=== PATIENT | female | born 1985 | race Hispanic/Latino ===

== ENCOUNTER 2017-02-21 13:04 | Inpatient (IN) | payer MEDICAID ==
[2017-02-21 14:07] LABS: BASO # 0.1 K/uL (0.0-0.2); BASO % 0.6 % (0.0-2.0); EOS % 0.2 % (0.0-4.0); HEMATOCRIT 42.4 % (34.0-47.0); LYMPH # 1.7 K/uL (1.0-4.3); LYMPH % 17.7 % (20.0-40.0); MEAN CORPUSCULAR HEMOGLOBIN 30.9 pg (27.0-31.0); MEAN CORPUSCULAR HGB CONC 33.9 g/dL (33.0-37.0); MEAN PLATELET VOLUME 10.4 fL (7.2-11.7); MONO # 0.4 K/uL (0.0-0.8); MONO % 4.5 % (0.0-10.0); RED CELL DISTRIBUTION WIDTH 13.2 % (11.5-14.5); WHITE BLOOD COUNT 9.7 K/uL (4.8-10.8)
[2017-02-21 14:15] LABS: RBC URINE 66 /hpf (0-3); URINE BILIRUBIN NEGATIVE (NEGATIVE); URINE BLOOD 1+ (NEGATIVE); URINE COLOR Amber (YELLOW); URINE GLUCOSE (UA) NORMAL (Normal); URINE KETONE NEGATIVE (NEGATIVE); URINE LEUKOCYTE ESTERASE 3+ Leu/uL (Negative); URINE PROTEIN 1+ mg/dL (NEGATIVE); URINE UROBILINOGEN NORMAL mg/dL (0.2-1.0); WBC URINE 139 /hpf (0-5)
[2017-02-21 14:18] LABS: CHLORIDE 107 mmol/L (98-107)
[2017-02-21 14:19] LABS: SODIUM 141 mmol/L (132-148)
[2017-02-21 14:20] LABS: POTASSIUM 3.5 mmol/L (3.6-5.2)
[2017-02-21 14:22] LABS: ALB/GLOB RATIO 1.1 (1.0-2.1); ALKALINE PHOSPHATASE 83 U/L (38-126); AST/SGOT 49 U/L (14-36); BILIRUBIN,TOTAL 0.9 mg/dL (0.2-1.3); BLOOD UREA NITROGEN 13 mg/dL (7-17); CARBON DIOXIDE 23 mmol/L (22-30); GFR AFRICAN-AMERICAN > 60; GLUCOSE,RANDOM 107 mg/dL (65-105); TOTAL PROTEIN 8.7 g/dL (6.3-8.3)
[2017-02-21 14:23] LABS: ALCOHOL SERUM < 10 mg/dl (0-10); ALT/SGPT 28 U/L (9-52); CALCIUM 9.7 mg/dl (8.6-10.4)
--- NOTE | 2017-02-21 14:42 | C.PDOC ---
History Of Present Illness 32 year old female presents to the ED stating that she would like detox for heroin abuse. Patient reports last use 2 days ago and that she is now having symptoms of withdrawal. She complains of abdominal cramping and diarrhea. Patient denies incontinence. Chief Complaint (Nursing): Substance Abuse History Per: Patient History/Exam Limitations: no limitations Onset/Duration Of Symptoms: Hrs Current Symptoms Are (Timing): Still Present Past Medical History Reviewed: Historical Data, Nursing Documentation, Vital Signs Vital Signs: Last Vital Signs Temp 98.2 F 02/21/17 16:35 Pulse 69 02/21/17 16:35 Resp 16 02/21/17 16:35 BP 122/70 02/21/17 16:35 Pulse Ox 100 02/21/17 16:35 - Medical History PMH: Anxiety, Depression, Seizures Denies: Diabetes, Hepatitis, HIV, HTN, Sexually Transmitted Disease - [facility] Procedures DETOXIFICATION SERVICES FOR SUBSTANCE ABUSE TREATMENT (04/23/15) DRUG REHABILITATION AND DETOXIFICATION (01/10/15) Family History: States: Unknown Family Hx - Social History Hx Alcohol Use: No Hx Substance Use: Yes (heroin use) - Immunization History Hx Tetanus Toxoid Vaccination: No Hx Influenza Vaccination: No Hx Pneumococcal Vaccination: No Review Of Systems Gastrointestinal: Positive for: Abdominal Pain, Diarrhea Genitourinary: Negative for: Incontinence Psych: Positive for: Withdrawal Physical Exam - Physical Exam Appears: Non-toxic, No Acute Distress Skin: Warm, Dry Head: Atraumatic, Normacephalic Eye(s): bilateral: Normal Inspection, PERRL, EOMI Oral Mucosa: Moist Cardiovascular: Rhythm Regular (Regular Rate ) Respiratory: Normal Breath Sounds Gastrointestinal/Abdominal: Soft, No Tenderness, Other (Not actively vomiting ) Neurological/Psych: Oriented x3, Normal Speech, Other (mildly anxious ) ED Course And Treatment - Laboratory Results Result Diagrams: 02/21/17 13:53 02/21/17 13:53 O2 Sat by Pulse Oximetry: 100 Progress Note: Patient has UTI and was treated with Macrobid 100 mg po that she needs to continue every 12 h for 5 days. Patient has symptomatic treatment for her withdrawal symptoms including abdominal cramps and diarrhea. She was give Clonidine 0.1 mg po, Bentyl 20 mg IM and Imodium po. Patient is medically stable to be admitted for Detox. She was accepted by . Medical Decision Making Medical Decision Making: Patient has been worked up for detox. Spoke with the detox unit and they have available beds. Disposition - Disposition Disposition: HOSPITALIZED Disposition Time: 15:50 Condition: STABLE - Clinical Impression Clinical Impression: Drug dependence, Withdrawal symptoms, drug or narcotic, UTI (urinary tract infection), Diarrhea - Scribe Statement The provider has reviewed the documentation as recorded by the Amando Saldana Decision To Admit - Pt Status Changed To: Hospital Disposition Of: Inpatient - Admit Certification Admit to Inpatient:: After my assessment, the patient will require hospitalization for at least two midnights. This is because of the severity of symptoms shown, intensity of services needed, and/or the medical risk in this patient being treated as an outpatient. - InPatient: Physician Admission Certification: I certify that this patient requires 2 or more midnights of care for the following reason:: Pt will need more than 2 days of hospitalization to complete detox. - . Bed Request Type: Detox Patient Diagnosis: Drug dependence, Withdrawal symptoms, drug or narcotic, UTI (urinary tract infection), Diarrhea
--- NOTE | 2017-02-21 16:43 | PCM.BM ---
<EmilyAurelioAnitra - Last Filed: 02/21/17 16:42> Treatment Plan Problems - Problems identified on initial assessmt Potential for opiate withdrawal Date Initiated: 02/21/17 Time Initiated: 16:42 Assessment reference: NA Status: Active Priority: 1 Treatment assets and liabiliti Patient Assests: cooperative, ADL independent, negotiates basic needs, cognitively intact Patient Liabilities: substance abuse, medical problems <Jordi Villar - Last Filed: 02/23/17 11:56> - Diagnosis (1) Opiate dependence Status: Acute Interventions: 02/23/17 11:56 * Assess 7x/week regarding severity of withdrawal * Educate regarding risks, benefits, side effects and alternatives of medications * Use Motivational Interviewing for abstinence * Use CBT for relapse prevention * Medication management for withdrawal symptoms * Encourage medication assisted treatment * <Aura Patel - Last Filed: 02/24/17 16:04> Family Contact Family involvement: Patient does not wish Family/SO involvement Family contact: Patient declines to allow family contact at present - Goals for Treatment Patient goals for treatment: Complete detox and discuss aftercare options with d /c buyer planner. Discharge/Continuing Care - Education Needs Education Needs: Patient Medication, Patient Diagnosis/Disease Process, Patient Coping Skills, Patient Anger Management skills, Patient Placement options, Patient Community resources - Discharge Discharge Criteria: No longer exhibiting s/s of withdrawal, Reduction of target symptoms Discharge to:: Substance Abuse Rehab - Treatment Team Participation Discussed with Family/SO: No Was Patient/Family/SO present at Treatment Team Meeting: Yes
[2017-02-21] MEDS ORDERED: Buprenorphine Hydrochloride 2 mg SL ONE ×2 (16:56→18:00)
[2017-02-22] MEDS: Buprenorphine Hydrochloride 2 mg SL SCH (10:17)
--- NOTE | 2017-02-22 13:57 | PCM.PSYCH ---
Initial Psychiatric Evaluation - Initial Psychiatric Evaluation Type of Admission: Voluntary Legal Status: Capacity Chief Complaint (in patient's own words): "Using heroin too much" History of Present Illness and Precipitating Events: The pt is seen, chart reviewed and case discussed. This is a 32 year old female with a past medical history of Hepatitis C and Seizures, is admitted for heroin withdrawal and detox. PT admits to injecting 20-25 bags a day for the past 15 years. Her longest period of sobriety with heroin was for 3 years. PT admits to ingesting 4 pills of Xanax a day for the past 5 years. The last time Pt took Xanax was a week ago. PT admits smoking and injecting "6 bottles of cocaine a day" for the past 15 years. Pt denies feeling depressed or having suicidal or homicidal ideation. Pt feels very anxious and is having trouble sleeping. Pt is single and living with boyfriend's mother. 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 Pt previously attended detox program at [facility] and methadone program in the past. Denies any legal issues currently or in the past. PMH: Hep C, Seizures Allergies: Shellfish, NKDA Family Hx: Father abused alcohol and cocaine. Denies any other family medical or psychiatric illnesses Past Psychiatric Hx: Pt was being treated for anxiety and depression with Zoloft and Buspar Current Medications: Active Medications Generic Name Dose Route Start Last Admin Trade Name Freq PRN Reason Stop Dose Admin Buprenorphine HCl 8 mg 02/22/17 10:00 02/22/17 10:17 Subutex SL 02/26/17 09:59 8 mg DAILY GAMAL Administration Taper Clonidine HCl 0.1 mg 02/21/17 18:47 Catapres PO Q8 PRN opiate withdrawal Dicyclomine HCl 10 mg 02/21/17 17:00 02/22/17 13:17 Bentyl PO 10 mg Q6 PRN Administration stomach cramps Hydroxyzine HCl 25 mg 02/21/17 16:56 02/22/17 13:17 Atarax PO 25 mg Q6 PRN Administration Anxiety Nicotine 1 patch 02/22/17 10:45 02/22/17 11:01 Nicoderm Cq TD 1 patch DAILY GAMAL Administration Nitrofurantoin Macrocrystals 100 mg 02/22/17 10:45 02/22/17 11:02 Macrobid PO 100 mg Q12H GAMAL Administration Trazodone HCl 50 mg 02/21/17 18:47 02/21/17 21:18 Desyrel PO 50 mg HS PRN Administration Insomnia Past Psychiatric History - Past Psychiatric History Previous Treatment History: Intensive Outpatient Pertinent Medical Hx (Current Medical&Sleep Prob, Allergies): Allergies Allergy/AdvReac Type Severity Reaction Status Date / Time shellfish derived Allergy Verified 02/21/17 13:14 SEAFOOD Allergy Uncoded 02/21/17 13:14 No Known Home Med 02/21/17 Review of Systems - Neurological Neurological: UNREMARKABLE - Psychiatric Psychiatric: Abnormal Sleep Pattern, Anxiety. absent: Anhedonia, Auditory Hallucinations, Behavioral Changes, Confusion, Depression, Difficulty Concentrating, Hallucinations, Homicidal Ideation, Hopelessness, Paranoia, Suicidal Ideation, Visual Hallucinations Mental Status Examination - Personal Presentation Personal Presentation: Looks stated age - Affect Affect: Constricted - Motor Activity Motor Activity: Calm - Reliability in Providing Information Reliability in Providing Information: Good - Speech Speech: Organized - Mood Mood: Anxious - Formal Thought Process Formal Thought Process: No Impairment - Obsessions/Compulsions Obsessions: No Compulsions: No - Cognitive Functions Orientation: Person, Place, Situation, Time Sensorium: Alert Attention/Concentration: Attentive Abstract Thinking: [place] Judgement: Intact, as evidence by: Insight regarding need for hospitalization Memory: Recent intact, as evidence by: Ability to recall events of the day, Remote intact, as evidenced by: Abilit to recall sig. 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 RONNELL Depressive d/o - unspecified - Recommended/Plan of Treatment Treatment Recommendations and Plan of Treatment: Subutex detox, started yesterday Switching from Trazadone to Seroquel for sleep Gabapentin for augmentation Lexapro for depression/anxiety Attend groups and activities Supportive therapy and psychoeducation [place] for abstinence CBT for relapse prevention Encourage MAT Refer to rehab or IOP Attend self-help groups as well Speak with protective services social worker about rehab programs or IOPs She may come to 32 min Projected ELOS: 5 days Prognosis: Good - Smoking Cessation Smoking Cessation Initiated: Yes
[2017-02-22] MEDS: Bacitracin 500 Units/gm Oint Foilpak UD TOP SCH (20:16)
[2017-02-23] MEDS: Bacitracin 500 Units/gm Oint Foilpak UD TOP SCH ×2 (09:56→17:19)
[2017-02-23] MEDS: Buprenorphine Hydrochloride 2 mg SL SCH (09:56)
--- NOTE | 2017-02-23 13:49 | PCM.PYCHPN ---
Psychiatric Progress Note - Psychiatric Progress Note Patient seen today, length of contact: 15 min Patient Chief Complaint: "I feel okay" Problems Identified/Issues Discussed: The pt is seen, chart reviewed, case discussed with staff. Pt switched from trazodone to seroquel and notices improvement in sleep Slept well overnight, no suicidal ideation or auditory/visual hallucinations Symptoms are improving but needs more time to stabilize. informed by pt and social workers that Pt will be attending [facility] after discharge Discussed maintenance medication usage after discharge Medication Change: Yes (daily detox) Medical Record Reviewed: Yes Mental Status Examination - Cognitive Function Orientation: Person, Place, Situation, Time Memory: Intact Attention: WNL Concentration: WNL Association: WNL Fund of Knowledge: WNL - Mood Mood: Neutral - Affect Affect: Constricted - Speech Speech: Appropriate - Formal Thought Process Formal Thought Process: No Impairment - Suicidal Ideation Suicidal Ideation: No - Homicidal Ideation Homicidal Ideation: No Goal/Treatment Plan - Goal/Treatment Plan Need for Continued Stay: Discharge may exacerbated symptoms Progress Toward Problem(s) and Goals/Treatment Plan: Subutex detox, started yesterday Seroquel for sleep Gabapentin for augmentation Lexapro for depression/anxiety Attend groups and activities Supportive therapy and psychoeducation [place] for abstinence CBT for relapse prevention Encourage MAT Refer to rehab or IOP Attend self-help groups as well Will attend [facility] after discharge Estimated Date of D/C: 02/26/17 - Smoking Cessation Smoking Cessation Initiated: No
[2017-02-23 19:00] VITALS: RESP 18
[2017-02-24] MEDS: Bacitracin 500 Units/gm Oint Foilpak UD TOP SCH ×2 (09:13→17:18)
[2017-02-24] MEDS: Buprenorphine Hydrochloride 2 mg SL SCH (09:14)
--- NOTE | 2017-02-24 13:35 | PCM.PYCHPN ---
Psychiatric Progress Note - Psychiatric Progress Note Patient seen today, length of contact: 15 min Patient Chief Complaint: "I feel okay" Problems Identified/Issues Discussed: The pt is seen, chart reviewed, case discussed with staff. Pt says trazodone and seroquel made her too drowsy overnight Educated Pt about Trazodone use Slept well overnight, no suicidal ideation or auditory/visual hallucinations Symptoms are improving but needs more time to stabilize. Pt will be attending [facility] after discharge Medication Change: Yes (daily detox) Medical Record Reviewed: Yes Mental Status Examination - Cognitive Function Orientation: Person, Place, Situation, Time Memory: Intact Attention: WNL Concentration: WNL Association: WNL Fund of Knowledge: WNL - Mood Mood: Neutral - Affect Affect: Constricted - Speech Speech: Appropriate - Formal Thought Process Formal Thought Process: No Impairment - Suicidal Ideation Suicidal Ideation: No - Homicidal Ideation Homicidal Ideation: No Goal/Treatment Plan - Goal/Treatment Plan Need for Continued Stay: Discharge may exacerbated symptoms Progress Toward Problem(s) and Goals/Treatment Plan: Subutex detox, Seroquel for sleep Trazodone PRN Gabapentin for augmentation Lexapro for depression/anxiety Attend groups and activities Support and psycho education daily Will attend [facility] after discharge Estimated Date of D/C: 02/25/17 - Smoking Cessation Smoking Cessation Initiated: No
[2017-02-25 04:55] VITALS: O2SAT 99
[2017-02-25 08:29] VITALS: BP 115/78; PULSE 89; TEMP 98.2
[2017-02-25] MEDS ORDERED: Buprenorphine Hydrochloride 2 mg SL ONE (08:30)
--- NOTE | 2017-02-25 08:34 | PCM.PYCHDC ---
Mental Status Examination - Mental Status Examination Orientation: Person, Place, Situation, Time Memory: Intact Mood: Neutral Affect: Other (Appropriate) Speech: Appropriate Attention: WNL Concentration: WNL Association: WNL Fund of Knowledge: WNL Formal Thought Process: No Impairment Suicidal Ideation: No Current Homicidal Ideation?: No Discharge Summary - Discharge Note Reason for Hospitalization: Opiate Withdrawal and Detox Consultations:: List each consultation separately and include: 1. Reason for request. 2. Findings. 3. Follow-up Summary of Hospital Course include:: 1. Description of specific treatment plan utilized for patients during their course of treatmen. 2. Summarize the time- course for resolution of acute symptoms and/or regressed behaviors. 3. Describe issues identified and worked on during hospitalization. 4. Describe medication utilized. 5. Describe medical problems identified and treated. 6. Reassessment of suicide risk Summary of Hospital Course: The pt was admitted for opiate withdrawal and detox and started on treatment with psychotherapy, support, psychoeducation and medications. [place] and CBT used. The pt attended groups and activities, as well as milieu therapy. All the risks and benefits of medications are discussed and the patient understood and agreed. The pt improved with the treatments provided. Pt will attend [facility] after discharge - Final Diagnosis (DSM 5) Condition upon Discharge: STABLE DSM 5: Opiate Dependence Disposition: HOME/ ROUTINE Follow-up Treatment Plan: Continue below medications after discharge. Follow after care plan as discussed. Use relapse prevention skills Return to ER or call 911 if suicidal, homicidal or symptoms relapse. Stay away from stress, alcohol and drugs. See primary doctor regularly and get labs. Prescriptions/Medication Reconciliation: Gabapentin [Neurontin] 400 mg PO BID #60 cap lamoTRIgine [Lamictal] 100 mg PO HS #30 tab Nitrofurantoin Macrocrystals [Macrobid] 100 mg PO Q12H #8 cap QUEtiapine [SEROquel] 50 mg PO HS #30 tab - Smoking Cessation Smoking Cessation Medication prescribed: No - Antipsychotic Medications Pt discharged on 2 or more routine antipsychotic medications: No
[2017-02-25] MEDS: Bacitracin 500 Units/gm Oint Foilpak UD TOP SCH (09:02)
[2017-02-25] MEDS: Buprenorphine Hydrochloride 2 mg SL SCH (09:04)
== END 2017-02-25 08:50 | disposition home or self-care (01) | DRG 744 ==
LOC: C.ER 13:04 → C.7D 15:48
PROC: HZ2ZZZZ Detoxification Services for Substance Abuse Treatment (ICD-10-PCS; principal; 2017-02-21)
PROC: GZ56ZZZ Individual Psychotherapy, Supportive (ICD-10-PCS; 2017-02-21)
DX: F11.23 Opioid dependence with withdrawal (principal); N39.0 Urinary tract infection, site not specified; F32.89 Other specified depressive episodes; F14.90 Cocaine use, unspecified, uncomplicated; F41.9 Anxiety disorder, unspecified; F19.10 Other psychoactive substance abuse, uncomplicated

== ENCOUNTER 2017-06-23 20:22 | Inpatient (IN) | payer MEDICAID ==
--- NOTE | 2017-06-23 20:43 | C.PDOC ---
History Of Present Illness The patient presents to the ED requesting heroin and benzodiazepine detox. Patient has already been prescreened. She states her last use of heroin was around 5-6 hours ago and her last use of benzodiazepines was around 4-5 hours ago. She denies suicidal/homicidal ideation and has no physical complaints at this time. Time Seen by Provider: 06/23/17 20:41 Chief Complaint (Nursing): Substance Abuse History Per: Patient History/Exam Limitations: no limitations Onset/Duration Of Symptoms: Hrs Current Symptoms Are (Timing): Still Present Suicide/Self Injury Attempted (Context): None Modifying Factor(s): Narcotics (heroin), Other (benzodiazepines) Severity: None Pain Scale Rating Of: 0 Associated Symptoms: denies: Suicidal Thoughts, Suicidal Plan Involuntary Hold By: None Recent travel outside of the [place]: No Additional History Per: Patient Past Medical History Reviewed: Historical Data, Nursing Documentation, Vital Signs Vital Signs: Last Vital Signs Temp 98.6 F 06/23/17 23:26 Pulse 112 H 06/23/17 23:26 Resp 20 06/23/17 23:26 BP 113/72 06/23/17 23:26 Pulse Ox 97 06/23/17 23:36 - Medical History PMH: Anxiety, Depression, Seizures Denies: Diabetes, Hepatitis, HIV, HTN, Sexually Transmitted Disease Surgical History: No Surg Hx - [facility] Procedures DETOXIFICATION SERVICES FOR SUBSTANCE ABUSE TREATMENT (02/21/17) DRUG REHABILITATION AND DETOXIFICATION (01/10/15) INDIVIDUAL PSYCHOTHERAPY, SUPPORTIVE (02/21/17) Family History: States: Unknown Family Hx - Social History Hx Alcohol Use: No Hx Substance Use: Yes - Immunization History Hx Tetanus Toxoid Vaccination: No Hx Influenza Vaccination: No Hx Pneumococcal Vaccination: No Review Of Systems Constitutional: Negative for: Fever, Chills Cardiovascular: Negative for: Chest Pain, Palpitations Respiratory: Negative for: Cough, Shortness of Breath Gastrointestinal: Negative for: Nausea, Vomiting, Abdominal Pain, Diarrhea Skin: Negative for: Rash, Lesions, Jaundice, Bruising Psych: Positive for: Other (benzodiazepine and heroin detox ). Negative for: Suicidal ideation Physical Exam - Physical Exam Appears: Non-toxic, No Acute Distress Skin: Warm, Dry Head: Normacephalic Eye(s): bilateral: Normal Inspection Oral Mucosa: Moist Neck: Supple Chest: Symmetrical, No Deformity, No Tenderness Cardiovascular: Rhythm Regular, No Murmur Respiratory: No Rales, No Rhonchi, No Wheezing Extremity: Normal ROM, Capillary Refill (less than 2 seconds ) Neurological/Psych: Oriented x3 Gait: Steady ED Course And Treatment - Laboratory Results Result Diagrams: 06/23/17 21:29 06/23/17 21:29 O2 Sat by Pulse Oximetry: 97 (on RA ) Pulse Ox Interpretation: Normal Progress Note: Bloodwork and urinalysis ordered and reviewed. Disposition Discussed With Dr.: Alana Kumar Comment: accepted the pt on his service and took over the care at 11PM Doctor Will See Patient In The: Hospital Counseled Patient/Family Regarding: Studies Performed, Diagnosis - Disposition Disposition: HOSPITALIZED Disposition Time: 20:43 Condition: FAIR - POA Present On Arrival: Poor Glycemic Control - Clinical Impression Clinical Impression: Drug abuse, Drug dependence, Opiate dependence, UTI (urinary tract infection) - Scribe Statement The provider has reviewed the documentation as recorded by the Scribe (Mirna Dominguez) Provider Attestation: All medical record entries made by the Scribe were at my direction and personally dictated by me. I have reviewed the chart and agree that the record accurately reflects my personal performance of the history, physical exam, medical decision making, and the department course for this patient. I have also personally directed, reviewed, and agree with the discharge instructions and disposition. Decision To Admit - Pt Status Changed To: Hospital Disposition Of: Inpatient - Admit Certification Admit to Inpatient:: After my assessment, the patient will require hospitalization for at least two midnights. This is because of the severity of symptoms shown, intensity of services needed, and/or the medical risk in this patient being treated as an outpatient. - InPatient: Physician Admission Certification: I certify that this patient requires 2 or more midnights of care for the following reason:: After my assessment, the patient will require hospitalization for at least two midnights. This is because of the severity of symptoms shown, intensity of services needed, and/or the medical risk in this patient being treated as an outpatient. - . Bed Request Type: Detox Admitting Physician: Alana Kumar Patient Diagnosis: Drug abuse, Drug dependence, Opiate dependence, UTI (urinary tract infection)
[2017-06-23 21:37] LABS: BASO # 0.1 K/uL (0.0-0.2); BASO % 0.4 % (0.0-2.0); EOS # 0.1 K/uL (0.0-0.7); EOS % 0.4 % (0.0-4.0); HEMOGLOBIN 13.5 g/dL (11.0-16.0); LYMPH # 1.6 K/uL (1.0-4.3); LYMPH % 7.7 % (20.0-40.0); MEAN CORPUSCULAR HEMOGLOBIN 31.9 pg (27.0-31.0); MEAN CORPUSCULAR HGB CONC 34.2 g/dL (33.0-37.0); MEAN PLATELET VOLUME 9.2 fL (7.2-11.7); MONO # 1.2 K/uL (0.0-0.8); MONO % 5.8 % (0.0-10.0); NEUT # 17.9 K/uL (1.8-7.0); NEUT % 85.7 % (50.0-75.0); PLATELET COUNT 328 K/uL (130-400); RBC 4.22 Mil/uL (3.80-5.20); RED CELL DISTRIBUTION WIDTH 12.9 % (11.5-14.5)
[2017-06-23 21:39] LABS: HCG,QUALITATIVE URINE NEGATIVE (NEGATIVE)
[2017-06-23 21:41] LABS: MEAN CELL VOLUME 93.4 fL (81.0-99.0); SQUAMOUS EPITHIAL 4 /hpf (0-5); URINE BACTERIA FEW (<OCC); URINE BILIRUBIN NEGATIVE (NEGATIVE); URINE BLOOD NEGATIVE (NEGATIVE); URINE CLARITY Hazy (Clear); URINE COLOR Yellow (YELLOW); URINE GLUCOSE (UA) NORMAL (Normal); URINE HYALINE CAST 0-2 /lpf (0-2); URINE LEUKOCYTE ESTERASE 2+ Leu/uL (Negative); URINE NITRATE NEGATIVE (NEGATIVE); URINE PROTEIN 1+ mg/dL (NEGATIVE); URINE UROBILINOGEN NORMAL mg/dL (0.2-1.0); WHITE BLOOD COUNT 20.9 K/uL (4.8-10.8)
[2017-06-23 21:51] LABS: ALB/GLOB RATIO 1.1 (1.0-2.1); ALBUMIN 4.5 g/dL (3.5-5.0); ALT/SGPT 78 U/L (9-52); AST/SGOT 65 U/L (14-36); BLOOD UREA NITROGEN 16 mg/dL (7-17); CALCIUM 9.2 mg/dl (8.6-10.4); GFR AFRICAN-AMERICAN > 60; GFR NON-AFRICAN AMERICAN > 60
[2017-06-23 21:58] LABS: BENZODIAZEPINES, UR NEGATIVE (NEGATIVE); PHENCYCLIDINE, UR NEGATIVE (NEGATIVE)
[2017-06-23 22:16] LABS: BARBITURATES, UR POSITIVE (NEGATIVE); OPIATES, UR POSITIVE (NEGATIVE)
[2017-06-23 22:19] LABS: BANDS 5 % (0-2); MONOCYTE 6 % (0-10); TOTAL CELLS COUNTED 100
[2017-06-23 22:20] LABS: LYMPHOCYTE 9 % (20-40); NEUTROPHIL 80 % (50-75); PLATELET ESTIMATE NORMAL (NORMAL)
[2017-06-23] MEDS ORDERED: Aluminum Hydroxide/Magnesium Hydroxide Susp (30 mL) PO PRN (22:29)
--- NOTE | 2017-06-23 23:22 | PCM.BM ---
<LauraJennifer - Last Filed: 06/23/17 23:21> Treatment Plan Problems - Problems identified on initial assessmt Ineffective Coping Skills Date Initiated: 06/23/17 Time Initiated: 23:21 Assessment reference: NA Status: Active Treatment assets and liabiliti Patient Assests: cooperative, ADL independent, negotiates basic needs, cognitively intact Patient Liabilities: financial problems, poor support system, substance abuse - Milieu Protocol Maintain good personal hygiene: daily Encourage regular showers, daily Remind patient to perform daily oral care, other Assist patient to perform ADL's Maintain personal safety: every shift Educate patient to report safety concerns to staff, every shift Monitor environment for contraband/sharps Medication safety: Monitor for expected outcome, potential side effects: every shift, Assess barriers to learning: every shift, Assess readiness for medication education: every shift <Aura Patel - Last Filed: 06/24/17 11:33> Family Contact Family involvement: Famliy/SO not involved - Goals for Treatment Patient goals for treatment: Complete detox and apply for [facility] adult rehab program. Discharge/Continuing Care - Education Needs Education Needs: Patient Medication, Patient Diagnosis/Disease Process, Patient Coping Skills, Patient Anger Management skills, Patient Placement options, Patient Community resources - Discharge Discharge Criteria: No longer exhibiting s/s of withdrawal, Reduction of target symptoms Discharge to:: Substance Abuse Rehab - Treatment Team Participation Patient/Family/SO Statement: 06/24/17 11:34 "i've been to [facility] before--I'd go there again." Discussed with Family/SO: No Was Patient/Family/SO present at Treatment Team Meeting: Yes <Jordi Villar - Last Filed: 06/24/17 12:30> - Diagnosis (1) Opioid use disorder, severe, dependence Status: Acute Interventions: 06/24/17 12:30 * Assess 7x/week regarding severity of withdrawal * Educate regarding risks, benefits, side effects and alternatives of medications * Use Motivational Interviewing for abstinence * Use CBT for relapse prevention * Medication management for withdrawal symptoms * Encourage medication assisted treatment *
--- NOTE | 2017-06-24 10:22 | PCM.PSYCH ---
Initial Psychiatric Evaluation - Initial Psychiatric Evaluation Type of Admission: Voluntary Legal Status: Capacity Chief Complaint (in patient's own words): "I need help again" History of Present Illness and Precipitating Events: The pt is seen, chart reviewed and case discussed. She is known from previous admission. This is a 32 year old female with a past medical history of Hepatitis C and Seizures, is admitted for heroin withdrawal and detox. PT admits to injecting 10-15 bags a day this time but started 15 years ago. Her longest period of sobriety with heroin was for 3 years. PT admits to ingesting 2 pills of kloopin 1 mg a day but abused xanax for the past 5 years. PT admits smoking and sometimes injecting cocaine daily for the past 15 years. Pt denies feeling depressed too much or having suicidal or homicidal ideation. Pt feels very anxious and is having trouble sleeping. Pt is single and currently homeless and she was living with boyfriend's mother last time. 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 Pt previously attended detox program at [facility] and methadone program in the past. Denies any legal issues currently or in the past. PMH: Hep C, Seizures in the past Allergies: Shellfish, NKDA Family Hx: Father abused alcohol and cocaine. Denies any other family medical or psychiatric illnesses Past Psychiatric Hx: Pt was being treated for anxiety and depression with Zoloft and Buspar in the past Current Medications: Active Medications Generic Name Dose Route Start Last Admin Trade Name Freq PRN Reason Stop Dose Admin Al Hydrox/Mg Hydrox/Simethicone 30 ml 06/23/17 22:29 Maalox 30 Ml PO TID PRN Indigestion / Heartburn Clonidine HCl 0.1 mg 06/23/17 22:29 Catapres PO Q8 PRN COWS Score More or Equal to 5 Folic Acid 1 mg 06/24/17 10:00 Folic Acid PO DAILY GAMAL Loperamide HCl 2 mg 06/23/17 22:29 Imodium PO Q8 PRN Diarrhea Lorazepam 1 mg 06/23/17 22:30 06/24/17 00:06 Ativan PO 1 mg Q4H PRN Administration Symptoms of alcohol withdrawl Multivitamins 1 tab 06/24/17 10:00 Hexavitamin PO DAILY GAMAL Nitrofurantoin Macrocrystals 100 mg 06/23/17 22:45 06/23/17 23:25 Macrobid PO 100 mg Q12H GAMAL Administration Ondansetron HCl 4 mg 06/23/17 22:29 Zofran Tab PO Q8 PRN Nausea/Vomiting Pseudoephedrine HCl 60 mg 06/23/17 22:29 Sudafed Tab PO QID PRN Nasal/Sinus Congestion Thiamine HCl 100 mg 06/24/17 10:00 Vitamin B1 Tab PO DAILY GAMAL Trazodone HCl 50 mg 06/23/17 22:30 06/24/17 00:06 Desyrel PO 50 mg HS PRN Administration Insomnia Past Psychiatric History - Past Psychiatric History Previous Treatment History: None Pertinent Medical Hx (Current Medical&Sleep Prob, Allergies): Allergies Allergy/AdvReac Type Severity Reaction Status Date / Time shellfish derived Allergy Verified 06/23/17 20:36 SEAFOOD Allergy Uncoded 06/23/17 20:36 No Known Home Med 06/23/17 Review of Systems - Neurological Neurological: UNREMARKABLE - Psychiatric Psychiatric: Abnormal Sleep Pattern, Anxiety, Change in Appetite, Difficulty Concentrating, Irritability. absent: Hallucinations, Homicidal Ideation, Suicidal Ideation Mental Status Examination - Personal Presentation Personal Presentation: Looks stated age - Affect Affect: Constricted - Motor Activity Motor Activity: Calm - Reliability in Providing Information Reliability in Providing Information: Good - Speech Speech: Organized - Mood Mood: Anxious - Formal Thought Process Formal Thought Process: No Impairment - Cognitive Functions Orientation: Person, Place, Situation, Time Sensorium: Alert Attention/Concentration: Attentive Abstract Thinking: Clancy Estimate of Intelligence: Average Judgement: Intact, as evidence by: Insight regarding need for hospitalization Memory: Recent intact, as evidence by: Ability to recall events of the day, Remote intact, as evidenced by: Abilit to recall sig. life events - Risk Risk: Withdrawal, Diminished functioning - Strength & Assets Inventory Strength & Assets Inventory: Cooperative - Limitations Limitations: Living alone DSM 5 DX - DSM 5 DSM 5 Diagnosis: Opioid withdrawal opioid use d/o - severe Cocaine use d/o - severe Anxiety d/o - unspecified - Recommended/Plan of Treatment Treatment Recommendations and Plan of Treatment: Start subutex taper Gabapentin for augmentation and benzos, cocaine Watch benzo wdw As needed medications All risks, benefits and alternatives of the meds discussed, and the pt agreed and understood. Attend groups and activities Supportive therapy and psychoeducation IL for abstinence CBT for relapse prevention Encourage MAT Refer to rehab or IOP, and self-help groups Smoking cessation with IL Nicotine patch if needed 34 min Projected ELOS: 4-5 days Prognosis: good with treatment Discharge Plan and Discharge Criteria: rehab - Smoking Cessation Smoking Cessation Initiated: Yes
[2017-06-24] MEDS ORDERED: Buprenorphine Hydrochloride 2 mg SL ONE ×3 (10:45→11:45)
[2017-06-24] MEDS: Multiple Vitamins Tab PO SCH (10:49)
--- NOTE | 2017-06-24 14:42 | CP.PCM.CON ---
<YashJoyce - Last Filed: 06/24/17 15:14> History of Present Illness - History of Present Illness History of Present Illness: Medicine consult note HPI: Patient is a 32 y/o female who presents to the hospital with complaint of right wrist pain, warmth, and swelling. She states the pain started last night after she injected cocaine IV with an old needle. She states the needle was never shared with anyone. This morning, she woke up with worse swelling and aching pain of the wrist. 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 She describes the pain as being a dull ache, and it does not radiate anywhere along the arm or fingers. On a pain scale, she rates it a 6 -7/10. Patient admits to having I&D for an abscess on the distal part of her right arm in the past. Currently, she denies fever, headache, chest pain, palpitations, SOB, numbness, and tingling. Social Hx: smokes 1 pack of cigarettes daily for 20 yrs., smokes 5-10 bags of cocaine daily for 3 yrs., uses heroine IV 12-15 bags daily on/off for 15 yrs., Klonopin 2 1mg pill daily for 3 yrs.; homeless; does not work; has one son who does not live with her. MHx: Hep. C (diagnosed in 2005); alcohol-induced seizure (2010); history of multiple seizures as a child Allergies: shellfish (anaphylactic shock) SHx: left knee meniscus repair; 1 vaginal delivery Hosp: psych detox >10x FHx: mom of metastatic breast CA; dad living, depression Meds: denies; received treatment of Hep. C in 2006 but failed and never returned for follow up Review of Systems - Review of Systems All systems: reviewed and no additional remarkable complaints except (as per HPI ) Past Patient History - Infectious Disease Hx of Infectious Diseases: None - Past Medical History & Family History Past Medical History?: Yes - Past Social History Smoking Status: Heavy Smoker > 10 Cigarettes Daily - CARDIAC Hx Cardiac Disorders: No Hx Hypertension: No - PULMONARY Hx Respiratory Disorders: No Hx Tuberculosis: Yes (patient reports being prone for testing positive for TB) Other/Comment: "Never had TB" as per Patient - NEUROLOGICAL Hx Neurological Disorder: Yes Hx Seizures: Yes (" from alcohol withdrawal" as per Patient) - HEENT Hx HEENT Problems: No - RENAL Hx Chronic Kidney Disease: No - ENDOCRINE/METABOLIC Hx Endocrine Disorders: No - HEMATOLOGICAL/ONCOLOGICAL Hx Blood Disorders: Yes Hx Hepatitis C: Yes (Hep C+) Hx Human Immunodeficiency Virus (HIV): No - INTEGUMENTARY Hx Dermatological Problems: No - MUSCULOSKELETAL/RHEUMATOLOGICAL Hx Musculoskeletal Disorders: No Hx Falls: No - GASTROINTESTINAL Hx Gastrointestinal Disorders: No - GENITOURINARY/GYNECOLOGICAL Hx Genitourinary Disorders: Yes Hx Sexually Transmitted Disorders: No Hx Urinary Tract Infection: Yes (Currently, started on Macrobid) - PSYCHIATRIC Hx Substance Use: Yes - SURGICAL HISTORY Hx Surgeries: Yes Other/Comment: left knee surgery in 1999 - ANESTHESIA Hx Anesthesia: Yes Hx Anesthesia Reactions: No Hx Malignant Hyperthermia: No Has any member of the family had a problem w/ anesthesia?: No Meds Allergies/Adverse Reactions: Allergies Allergy/AdvReac Type Severity Reaction Status Date / Time shellfish derived Allergy Verified 06/23/17 20:36 SEAFOOD Allergy Uncoded 06/23/17 20:36 - Medications Medications: Current Medications Al Hydrox/Mg Hydrox/Simethicone (Maalox 30 Ml) 30 ml PO TID PRN PRN Reason: Indigestion / Heartburn Clindamycin HCl (Cleocin) 300 mg PO Q6 [facility] Clonidine HCl (Catapres) 0.1 mg PO Q8 PRN PRN Reason: COWS Score More or Equal to 5 Folic Acid (Folic Acid) 1 mg PO DAILY [facility] Last Admin: 06/24/17 10:49 Dose: 1 mg Gabapentin (Neurontin) 300 mg PO TID [facility] Loperamide HCl (Imodium) 2 mg PO Q8 PRN PRN Reason: Diarrhea Lorazepam (Ativan) 1 mg PO Q6H PRN PRN Reason: Symptoms of alcohol withdrawl Multivitamins (Hexavitamin) 1 tab PO DAILY [facility] Last Admin: 06/24/17 10:49 Dose: 1 tab Nitrofurantoin Macrocrystals (Macrobid) 100 mg PO Q12H [facility] Last Admin: 06/24/17 10:49 Dose: 100 mg Ondansetron HCl (Zofran Tab) 4 mg PO Q8 PRN PRN Reason: Nausea/Vomiting Pseudoephedrine HCl (Sudafed Tab) 60 mg PO QID PRN PRN Reason: Nasal/Sinus Congestion Saccharomyces Boulardii (Florastor) 250 mg PO BID GAMAL Thiamine HCl (Vitamin B1 Tab) 100 mg PO DAILY GAMAL Last Admin: 06/24/17 10:49 Dose: 100 mg Trazodone HCl (Desyrel) 100 mg PO HS PRN PRN Reason: Insomnia Physical Exam - Constitutional Appears: Non-toxic, No Acute Distress - Head Exam Head Exam: ATRAUMATIC, NORMAL INSPECTION, NORMOCEPHALIC - Eye Exam Eye Exam: EOMI, Normal appearance, PERRL - ENT Exam ENT Exam: Mucous Membranes Moist - Neck Exam Neck exam: Positive for: Normal Inspection Additional comments: no signs of track ponce - Respiratory Exam Respiratory Exam: Clear to Auscultation Bilateral, NORMAL BREATHING PATTERN. absent: Accessory Muscle Use, Rales, Rhonchi, Wheezes, Respiratory Distress - Cardiovascular Exam Cardiovascular Exam: RRR, +S1, +S2. absent: Diastolic murmur, Systolic Murmur - GI/Abdominal Exam GI & Abdominal Exam: Normal Bowel Sounds, Soft. absent: Distended, Tenderness - Extremities Exam Extremities exam: Negative for: calf tenderness, pedal edema Additional comments: Right wrist: swelling and edema on the anterior wrist with tenderness to palpation extending from thenar eminence to mid way up the anterior aspect of the forearm. Pressure to the dorsal aspect pf the wrist also caused pain on the anterior aspect. - Neurological Exam Neurological exam: Alert, Oriented x3 - Psychiatric Exam Psychiatric exam: Normal Affect, Normal Mood - Skin Skin Exam: Dry, Intact, Warm Results - Vital Signs Recent Vital Signs: Last Vital Signs Temp 97.9 F 06/24/17 13:38 Pulse 98 H 06/24/17 13:38 Resp 18 06/24/17 13:38 BP 110/76 06/24/17 13:38 Pulse Ox 97 06/24/17 13:38 - Labs Result Diagrams: 06/24/17 14:45 06/24/17 14:45 Labs: Laboratory Results - last 24 hr 06/23/17 06/23/17 06/23/17 21:29 21:29 21:29 WBC 20.9 H D RBC 4.22 Hgb 13.5 Hct 39.5 MCV 93.4 D MCH 31.9 H MCHC 34.2 RDW 12.9 Plt Count 328 MPV 9.2 Neut % (Auto) 85.7 H Lymph % (Auto) 7.7 L [place] % (Auto) 5.8 Eos % (Auto) 0.4 Baso % (Auto) 0.4 Neut # (Auto) 17.9 H Lymph # (Auto) 1.6 [place] # (Auto) 1.2 H Eos # (Auto) 0.1 Baso # (Auto) 0.1 Neutrophils % (Manual) 80 H Band Neutrophils % 5 H Lymphocytes % (Manual) 9 L Monocytes % (Manual) 6 Platelet Estimate Normal Sodium 131 L Potassium 3.7 Chloride 93 L Carbon Dioxide 25 Anion Gap 18 BUN 16 Creatinine 0.6 L Est GFR ( Amer) > 60 Est GFR (Non-Af Amer) > 60 Random Glucose 146 H Calcium 9.2 Total Bilirubin 1.0 AST 65 H D ALT 78 H D Alkaline Phosphatase 89 Total Protein 8.5 H Albumin 4.5 Globulin 4.0 H Albumin/Globulin Ratio 1.1 Urine Color Yellow Urine Clarity Hazy Urine pH 5.0 Ur Specific [place]evay 1.018 Urine Protein 1+ H Urine Glucose (UA) Normal Urine Ketones Negative Urine Blood Negative Urine Nitrate Negative Urine Bilirubin Negative Urine Urobilinogen Normal Ur Leukocyte Esterase 2+ H Urine WBC (Auto) 9 H Urine RBC (Auto) 5 H Ur Squamous Epith Cells 4 Urine Bacteria Few H Hyaline Casts 0-2 Urine HCG, Qual Negative Urine Opiates Screen Urine Methadone Screen Ur Barbiturates Screen Ur Phencyclidine Scrn Ur Amphetamines Screen U Benzodiazepines Scrn U Oth Cocaine Metabols U Cannabinoids Screen Alcohol, Quantitative < 10 06/23/17 21:29 WBC RBC Hgb Hct MCV MCH MCHC RDW Plt Count MPV Neut % (Auto) Lymph % (Auto) [place] % (Auto) Eos % (Auto) Baso % (Auto) Neut # (Auto) Lymph # (Auto) [place] # (Auto) Eos # (Auto) Baso # (Auto) Neutrophils % (Manual) Band Neutrophils % Lymphocytes % (Manual) Monocytes % (Manual) Platelet Estimate Sodium Potassium Chloride Carbon Dioxide Anion Gap BUN Creatinine Est GFR ( Amer) Est GFR (Non-Af Amer) Random Glucose Calcium Total Bilirubin AST ALT Alkaline Phosphatase Total Protein Albumin Globulin Albumin/Globulin Ratio Urine Color Urine Clarity Urine pH Ur Specific [place] Urine Protein Urine Glucose (UA) Urine Ketones Urine Blood Urine Nitrate Urine Bilirubin Urine Urobilinogen Ur Leukocyte Esterase Urine WBC (Auto) Urine RBC (Auto) Ur Squamous Epith Cells Urine Bacteria Hyaline Casts Urine HCG, Qual Urine Opiates Screen Positive H Urine Methadone Screen Negative Ur Barbiturates Screen Positive H Ur Phencyclidine Scrn Negative Ur Amphetamines Screen Negative U Benzodiazepines Scrn Negative U Oth Cocaine Metabols Positive H U Cannabinoids Screen Negative Alcohol, Quantitative Assessment & Plan - Assessment and Plan (Free Text) Plan: 1. Cellulitis vs Abscess of right wrist * Leukocytosis * Afebrile * f/u US of wrist * f/u blood culture * Warm compresses x30 min Q4H * Clindamycin 300 mg PO Q6 * Florastor BID 2. UTI * UA: 1+ protein, 2+ leukocyte esterase, 9 WBC, 5 RBC, few bacteria * f/u urine culture * continue Macrobid 3. Substance abuse * Tox screen: +opiates, cocaine, barbiturates * Continue management as per primary (Dr. Kumar) 4. Hep C * AST/ALT: 49/56 * monitor Patient discussed with Dr. Alberto Berrios, PGY1 <Konstantin Dominguez - Last Filed: 06/24/17 19:31> Meds - Medications Medications: Current Medications Al Hydrox/Mg Hydrox/Simethicone (Maalox 30 Ml) 30 ml PO TID PRN PRN Reason: Indigestion / Heartburn Clindamycin HCl (Cleocin) 300 mg PO Q6 [facility] Last Admin: 06/24/17 17:42 Dose: 300 mg Clonidine HCl (Catapres) 0.1 mg PO Q8 PRN PRN Reason: COWS Score More or Equal to 5 Folic Acid (Folic Acid) 1 mg PO DAILY [facility] Last Admin: 06/24/17 10:49 Dose: 1 mg Gabapentin (Neurontin) 300 mg PO TID [facility] Last Admin: 06/24/17 17:42 Dose: 300 mg Loperamide HCl (Imodium) 2 mg PO Q8 PRN PRN Reason: Diarrhea Lorazepam (Ativan) 1 mg PO Q6H PRN PRN Reason: Symptoms of alcohol withdrawl Last Admin: 06/24/17 17:42 Dose: 1 mg Multivitamins (Hexavitamin) 1 tab PO DAILY [facility] Last Admin: 06/24/17 10:49 Dose: 1 tab Nicotine (Nicoderm Cq) 1 patch TD DAILY [facility] Last Admin: 06/24/17 16:28 Dose: 1 patch Nitrofurantoin Macrocrystals (Macrobid) 100 mg PO Q12H [facility] Last Admin: 06/24/17 10:49 Dose: 100 mg Ondansetron HCl (Zofran Tab) 4 mg PO Q8 PRN PRN Reason: Nausea/Vomiting Pseudoephedrine HCl (Sudafed Tab) 60 mg PO QID PRN PRN Reason: Nasal/Sinus Congestion Saccharomyces Boulardii (Florastor) 250 mg PO BID [facility] Last Admin: 06/24/17 18:44 Dose: 250 mg Thiamine HCl (Vitamin B1 Tab) 100 mg PO DAILY [facility] Last Admin: 06/24/17 10:49 Dose: 100 mg Trazodone HCl (Desyrel) 100 mg PO HS PRN PRN Reason: Insomnia Results - Vital Signs Recent Vital Signs: Last Vital Signs Temp 98.2 F 06/24/17 17:31 Pulse 102 H 06/24/17 17:31 Resp 18 06/24/17 17:31 BP 115/78 06/24/17 17:31 Pulse Ox 98 06/24/17 17:31 - Labs Result Diagrams: 06/24/17 14:45 06/24/17 14:45 Labs: Laboratory Results - last 24 hr 06/23/17 06/23/17 06/23/17 21:29 21:29 21:29 WBC 20.9 H D RBC 4.22 Hgb 13.5 Hct 39.5 MCV 93.4 D MCH 31.9 H MCHC 34.2 RDW 12.9 Plt Count 328 MPV 9.2 Neut % (Auto) 85.7 H Lymph % (Auto) 7.7 L [place] % (Auto) 5.8 Eos % (Auto) 0.4 Baso % (Auto) 0.4 Neut # (Auto) 17.9 H Lymph # (Auto) 1.6 [place] # (Auto) 1.2 H Eos # (Auto) 0.1 Baso # (Auto) 0.1 Neutrophils % (Manual) 80 H Band Neutrophils % 5 H Lymphocytes % (Manual) 9 L Monocytes % (Manual) 6 Platelet Estimate Normal Sodium 131 L Potassium 3.7 Chloride 93 L Carbon Dioxide 25 Anion Gap 18 BUN 16 Creatinine 0.6 L Est GFR ( Amer) > 60 Est GFR (Non-Af Amer) > 60 Random Glucose 146 H Calcium 9.2 Phosphorus Magnesium Total Bilirubin 1.0 AST 65 H D ALT 78 H D Alkaline Phosphatase 89 Total Protein 8.5 H Albumin 4.5 Globulin 4.0 H Albumin/Globulin Ratio 1.1 Urine Color Yellow Urine Clarity Hazy Urine pH 5.0 Ur Specific [place]ev[place] 1.018 Urine Protein 1+ H Urine Glucose (UA) Normal Urine Ketones Negative Urine Blood Negative Urine Nitrate Negative Urine Bilirubin Negative Urine Urobilinogen Normal Ur Leukocyte Esterase 2+ H Urine WBC (Auto) 9 H Urine RBC (Auto) 5 H Ur Squamous Epith Cells 4 Urine Bacteria Few H Hyaline Casts 0-2 Urine HCG, Qual Negative Urine Opiates Screen Urine Methadone Screen Ur Barbiturates Screen Ur Phencyclidine Scrn Ur Amphetamines Screen U Benzodiazepines Scrn U Oth Cocaine Metabols U Cannabinoids Screen Alcohol, Quantitative < 10 06/23/17 06/24/17 06/24/17 21:29 14:45 14:45 WBC 11.3 H RBC 3.77 L Hgb 12.2 Hct 35.3 MCV 93.6 MCH 32.5 H MCHC 34.7 RDW 13.1 Plt Count 292 MPV 8.9 Neut % (Auto) 56.2 Lymph % (Auto) 29.2 [place] % (Auto) 10.5 H Eos % (Auto) 3.4 Baso % (Auto) 0.7 Neut # (Auto) 6.4 Lymph # (Auto) 3.3 [place] # (Auto) 1.2 H Eos # (Auto) 0.4 Baso # (Auto) 0.1 Neutrophils % (Manual) Band Neutrophils % Lymphocytes % (Manual) Monocytes % (Manual) Platelet Estimate Sodium 132 Potassium 3.8 Chloride 96 L Carbon Dioxide 27 Anion Gap 13 BUN 13 Creatinine 0.6 L Est GFR ( Amer) > 60 Est GFR (Non-Af Amer) > 60 Random Glucose 116 H Calcium 8.6 Phosphorus 3.9 Magnesium 2.1 Total Bilirubin 0.6 AST 49 H D ALT 56 H D Alkaline Phosphatase 72 Total Protein 7.4 Albumin 4.0 Globulin 3.4 Albumin/Globulin Ratio 1.2 Urine Color Urine Clarity Urine pH Ur Specific [place] Urine Protein Urine Glucose (UA) Urine Ketones Urine Blood Urine Nitrate Urine Bilirubin Urine Urobilinogen Ur Leukocyte Esterase Urine WBC (Auto) Urine RBC (Auto) Ur Squamous Epith Cells Urine Bacteria Hyaline Casts Urine HCG, Qual Urine Opiates Screen Positive H Urine Methadone Screen Negative Ur Barbiturates Screen Positive H Ur Phencyclidine Scrn Negative Ur Amphetamines Screen Negative U Benzodiazepines Scrn Negative U Oth Cocaine Metabols Positive H U Cannabinoids Screen Negative Alcohol, Quantitative Attending/Attestation - Attestation I have personally seen and examined this patient.: Yes I have fully participated in the care of the patient.: Yes I have reviewed all pertinent clinical information: Yes Notes (Text): 06/24/17 19:28 Patient was seen and examined shortly after resident. Exam, history and physical were gone over with the resident Also on Exam: NO right axillary lymphadenopathy Right Anterior Wrist area of erythema, warmth, and slight fluctuance that was outlined with black ink Please also note that Assessment and Plan should also included: Leukocytosis: Secondary to stress response? Secondary to UTI? Secondary to Right Wrist Cellulitis/Abscess Much improved upon repeat CBC. F/U Urine Culture F/U Blood Culture F/U Right Wrist U/S to rule out abscess Clindamycin Konstantin Dominguez D.O.
--- NOTE | 2017-06-24 14:42 | RAD ---
HISTORY: Elevated WBC COMPARISON: Chest x-ray performed 05/26/15 TECHNIQUE: Chest PA and lateral FINDINGS: LUNGS: No focal consolidation. Please note that chest x-ray has limited sensitivity for the detection of pulmonary masses. PLEURA: No significant pleural effusion identified. No definite pneumothorax . CARDIOVASCULAR: The cardiomediastinal silhouette appears within normal limits of size. OSSEOUS STRUCTURES: No acute osseous abnormality identified. VISUALIZED UPPER ABDOMEN: Unremarkable. OTHER FINDINGS: None. IMPRESSION: No focal consolidation identified.
[2017-06-24 14:52] LABS: BASO # 0.1 K/uL (0.0-0.2); BASO % 0.7 % (0.0-2.0); EOS # 0.4 K/uL (0.0-0.7); EOS % 3.4 % (0.0-4.0); HEMOGLOBIN 12.2 g/dL (11.0-16.0); LYMPH # 3.3 K/uL (1.0-4.3); LYMPH % 29.2 % (20.0-40.0); MEAN CELL VOLUME 93.6 fL (81.0-99.0); MEAN CORPUSCULAR HEMOGLOBIN 32.5 pg (27.0-31.0); MEAN CORPUSCULAR HGB CONC 34.7 g/dL (33.0-37.0); MEAN PLATELET VOLUME 8.9 fL (7.2-11.7); MONO # 1.2 K/uL (0.0-0.8); MONO % 10.5 % (0.0-10.0); NEUT # 6.4 K/uL (1.8-7.0); NEUT % 56.2 % (50.0-75.0); NRBC % 0.1 % (0.0-2.0); RBC 3.77 Mil/uL (3.80-5.20); RED CELL DISTRIBUTION WIDTH 13.1 % (11.5-14.5); WHITE BLOOD COUNT 11.3 K/uL (4.8-10.8)
[2017-06-24 15:07] LABS: ALB/GLOB RATIO 1.2 (1.0-2.1); ALT/SGPT 56 U/L (9-52); AST/SGOT 49 U/L (14-36); BLOOD UREA NITROGEN 13 mg/dL (7-17); CALCIUM 8.6 mg/dl (8.6-10.4); GFR AFRICAN-AMERICAN > 60; GFR NON-AFRICAN AMERICAN > 60; MAGNESIUM 2.1 mg/dL (1.6-2.3)
[2017-06-24] MEDS: Saccharomyces Boulardi 250 mg Cap PO SCH (18:44)
--- NOTE | 2017-06-24 23:23 | US ---
EXAM: US Right Upper Extremity Non-Vascular, Limited CLINICAL HISTORY: 32 years old, female; Signs and symptoms; Other: Rt wrist R/O abscess; Additional info: Right wrist abscess TECHNIQUE: Real-time ultrasound scan of the right upper extremity with image documentation. COMPARISON: No relevant prior studies available. FINDINGS: Soft tissues: Edema and mildly increased vascularity within soft tissues. Fluid around palmar tendon of wrist, approximately 0.5 x 1.5 x 0.4 cm. IMPRESSION: 1. Tenosynovitis, infectious or noninfectious. Clinical correlation is needed. 2. Soft tissue edema, possibly cellulitis. Clinical correlation is needed.
[2017-06-25 08:11] LABS: BASO % 0.6 % (0.0-2.0); EOS # 0.4 K/uL (0.0-0.7); HEMOGLOBIN 10.7 g/dL (11.0-16.0); LYMPH # 3.1 K/uL (1.0-4.3); LYMPH % 42.1 % (20.0-40.0); MEAN CELL VOLUME 94.1 fL (81.0-99.0); MEAN CORPUSCULAR HEMOGLOBIN 33.2 pg (27.0-31.0); MEAN CORPUSCULAR HGB CONC 35.3 g/dL (33.0-37.0); MEAN PLATELET VOLUME 9.3 fL (7.2-11.7); MONO # 0.8 K/uL (0.0-0.8); MONO % 10.7 % (0.0-10.0); NEUT # 3.1 K/uL (1.8-7.0); NEUT % 41.6 % (50.0-75.0); RBC 3.22 Mil/uL (3.80-5.20); RED CELL DISTRIBUTION WIDTH 12.8 % (11.5-14.5); WHITE BLOOD COUNT 7.3 K/uL (4.8-10.8)
[2017-06-25 08:28] LABS: ALB/GLOB RATIO 1.1 (1.0-2.1); ALBUMIN 3.3 g/dL (3.5-5.0); ALT/SGPT 47 U/L (9-52); AST/SGOT 46 U/L (14-36); BLOOD UREA NITROGEN 11 mg/dL (7-17); CALCIUM 8.5 mg/dl (8.6-10.4); GFR AFRICAN-AMERICAN > 60; GFR NON-AFRICAN AMERICAN > 60
[2017-06-25] MEDS: Multiple Vitamins Tab PO SCH (10:02)
[2017-06-25] MEDS ORDERED: Potassium Chloride 20 mEq ER Tab PO ONE (10:14)
[2017-06-25] MEDS: Buprenorphine Hydrochloride 2 mg SL SCH (10:28)
[2017-06-25] MEDS: Saccharomyces Boulardi 250 mg Cap PO SCH ×2 (12:04→18:02)
[2017-06-25] MEDS ORDERED: Ciprofloxacin 400mg/200ml D5W 400 MG/200 ML BAG IVPB SCH (14:30)
--- NOTE | 2017-06-25 15:44 | CP.PCM.PN ---
<NewingtonNaa brownhiwot Anthony - Last Filed: 06/25/17 16:47> Subjective - Date & Time of Evaluation Date of Evaluation: 06/25/17 Time of Evaluation: 00:15 - Subjective Subjective: Medicine progress note ( Dr. Yee's service) Patient was seen and examined at bedside. Patient reports that she is doing well and has no complaints. Patient denies fever, chills, nausea, vomiting, abdominal pain, chest pain, palpitations, diarrhea, diaphoresis. Patient does admit to right hand pain at the site of the infection. Objective - Vital Signs/Intake and Output Vital Signs (last 24 hours): Temp Pulse Resp BP Pulse Ox 97.8 F 100 H 18 116/74 97 06/25/17 13:56 06/25/17 13:56 06/25/17 13:56 06/25/17 13:56 06/25/17 13:56 - Medications Medications: Current Medications Al Hydrox/Mg Hydrox/Simethicone (Maalox 30 Ml) 30 ml PO TID PRN PRN Reason: Indigestion / Heartburn Buprenorphine HCl (Subutex) 8 mg SL DAILY [facility] PRN Reason: Taper Stop: 06/30/17 09:59 Last Admin: 06/25/17 10:28 Dose: 8 mg Clonidine HCl (Catapres) 0.1 mg PO Q8 PRN PRN Reason: COWS Score More or Equal to 5 Folic Acid (Folic Acid) 1 mg PO DAILY [facility] Last Admin: 06/25/17 10:02 Dose: 1 mg Gabapentin (Neurontin) 300 mg PO TID [facility] Last Admin: 06/25/17 13:33 Dose: 300 mg Ciprofloxacin (Cipro 400mg/200ml Dsw) 400 mg in 200 mls @ 133 mls/hr IVPB Q12H [facility] Vancomycin/Sodium Chloride (Vancomycin 1 Gm/Ns 200 Ml) 1 gm in 200 mls @ 133.333 mls/hr IVPB Q24H [facility] Stop: 06/30/17 17:01 Ibuprofen (Motrin Tab) 600 mg PO Q6H PRN PRN Reason: Pain, moderate (4-7) Last Admin: 06/25/17 10:27 Dose: 600 mg Loperamide HCl (Imodium) 2 mg PO Q8 PRN PRN Reason: Diarrhea Lorazepam (Ativan) 1 mg PO Q6H PRN PRN Reason: Symptoms of alcohol withdrawl Last Admin: 06/25/17 12:07 Dose: 1 mg Multivitamins (Hexavitamin) 1 tab PO DAILY [facility] Last Admin: 06/25/17 10:02 Dose: 1 tab Nicotine (Nicoderm Cq) 1 patch TD DAILY [facility] Last Admin: 06/25/17 10:03 Dose: 1 patch Ondansetron HCl (Zofran Tab) 4 mg PO Q8 PRN PRN Reason: Nausea/Vomiting Quetiapine Fumarate (Seroquel) 50 mg PO HS [facility] Saccharomyces Boulardii (Florastor) 250 mg PO BID [facility] Last Admin: 06/25/17 12:04 Dose: Not Given Thiamine HCl (Vitamin B1 Tab) 100 mg PO DAILY [facility] Last Admin: 06/25/17 10:03 Dose: 100 mg Trazodone HCl (Desyrel) 100 mg PO HS PRN PRN Reason: Insomnia Last Admin: 06/24/17 21:49 Dose: 100 mg - Labs Labs: 06/25/17 07:50 06/25/17 07:50 - Constitutional Appears: No Acute Distress - Head Exam Head Exam: ATRAUMATIC, NORMAL INSPECTION - Eye Exam Eye Exam: EOMI, Normal appearance - ENT Exam ENT Exam: Mucous Membranes Moist - Respiratory Exam Respiratory Exam: Clear to Ausculation Bilateral, NORMAL BREATHING PATTERN. absent: Prolonged Expiratory Phase, Rhonchi, Wheezes, Respiratory Distress, Stridor - Cardiovascular Exam Cardiovascular Exam: REGULAR RHYTHM, +S1, +S2. absent: Murmur - GI/Abdominal Exam GI & Abdominal Exam: Soft, Normal Bowel Sounds. absent: Distended, Guarding, Rigid, Tenderness - Extremities Exam Additional comments: Right wrist cellulitis Mildly warm to touch - Neurological Exam Neurological Exam: Alert, Awake - Psychiatric Exam Psychiatric exam: Normal Affect - Skin Skin Exam: Normal Color Assessment and Plan (1) Cellulitis of right hand Assessment & Plan: Hand Surgery, Dr. Mullen * Evaluation for possible debridement Labs: * Leukocytosis resolving Imaging: Right US (06/24/17): Tenosynovitis, infectious or noninfectious. Clinical correlation is needed. Soft tissue edema, possibly cellulitis. Clinical correlation is needed. Medications: * Cipro 400mg IV Q12H (start 06/25/17) * Vanco 1gm IV daily (start 06/25/17) * Motrin 600mg PO Q6H ( For pain control) * Warm compresses x30 min Q4H * Florastor 250mg PO BID Transfer to medical surgical floor Status: Acute (2) Tobacco abuse Assessment & Plan: Nicotine 21mg/24 hr Status: Acute (3) UTI (urinary tract infection) Assessment & Plan: UA: 1+ protein, 2+ leukocyte esterase, 9 WBC, 5 RBC, few bacteria UC: Gram negative DESTINY; awaiting sensitivity Medication: * Cipro 400mg IV Q12H Status: Acute (4) Drug abuse Assessment & Plan: Psychiatry, Dr. Kumar---> On board UDS: +opiates, cocaine, barbiturates ology screen: +opiates, cocaine, barbiturates * Management as per psychiatry * Subtex detox * Gabapentin for augmentation * Seroquel 50mg PO HS and Trazadone 50mg PO HS for sleep Status: Acute (5) Hypokalemia Assessment & Plan: K+: 3.5 K-Dur 40meq once Monitor with am labs Status: Acute (6) Prophylactic measure Assessment & Plan: GI: Protonix 20mg PO daily DVT: Ambulates, RISK: 0 All plans and management discussed with attending Status: Acute <Alejandrina Yee V - Last Filed: 06/25/17 18:07> Objective - Vital Signs/Intake and Output Vital Signs (last 24 hours): Temp Pulse Resp BP Pulse Ox 97.7 F 93 H 20 105/65 97 06/25/17 17:00 06/25/17 17:00 06/25/17 17:00 06/25/17 17:00 06/25/17 17:00 - Medications Medications: Current Medications Al Hydrox/Mg Hydrox/Simethicone (Maalox 30 Ml) 30 ml PO TID PRN PRN Reason: Indigestion / Heartburn Buprenorphine HCl (Subutex) 8 mg SL DAILY [facility] PRN Reason: Taper Stop: 06/30/17 09:59 Last Admin: 06/25/17 10:28 Dose: 8 mg Clonidine HCl (Catapres) 0.1 mg PO Q8 PRN PRN Reason: COWS Score More or Equal to 5 Last Admin: 06/25/17 16:34 Dose: 0.1 mg Folic Acid (Folic Acid) 1 mg PO DAILY [facility] Last Admin: 06/25/17 10:02 Dose: 1 mg Gabapentin (Neurontin) 300 mg PO TID [facility] Last Admin: 06/25/17 13:33 Dose: 300 mg Ciprofloxacin (Cipro 400mg/200ml Dsw) 400 mg in 200 mls @ 200 mls/hr IVPB Q12H [facility] Vancomycin/Sodium Chloride (Vancomycin 1 Gm/Ns 200 Ml) 1 gm in 200 mls @ 133.333 mls/hr IVPB Q24H [facility] Stop: 06/30/17 20:01 Ibuprofen (Motrin Tab) 600 mg PO Q6H PRN PRN Reason: Pain, moderate (4-7) Last Admin: 06/25/17 10:27 Dose: 600 mg Loperamide HCl (Imodium) 2 mg PO Q8 PRN PRN Reason: Diarrhea Lorazepam (Ativan) 1 mg PO Q6H PRN PRN Reason: Symptoms of alcohol withdrawl Last Admin: 06/25/17 12:07 Dose: 1 mg Multivitamins (Hexavitamin) 1 tab PO DAILY [facility] Last Admin: 06/25/17 10:02 Dose: 1 tab Nicotine (Nicoderm Cq) 1 patch TD DAILY [facility] Last Admin: 06/25/17 10:03 Dose: 1 patch Ondansetron HCl (Zofran Tab) 4 mg PO Q8 PRN PRN Reason: Nausea/Vomiting Pantoprazole Sodium (Protonix Ec Tab) 20 mg PO DAILY [facility] Quetiapine Fumarate (Seroquel) 50 mg PO HS [facility] Saccharomyces Boulardii (Florastor) 250 mg PO BID [facility] Last Admin: 06/25/17 12:04 Dose: Not Given Thiamine HCl (Vitamin B1 Tab) 100 mg PO DAILY [facility] Last Admin: 06/25/17 10:03 Dose: 100 mg Trazodone HCl (Desyrel) 100 mg PO HS PRN PRN Reason: Insomnia Last Admin: 06/24/17 21:49 Dose: 100 mg - Labs Labs: 06/25/17 07:50 06/25/17 07:50 Attending/Attestation - Attestation I have personally seen and examined this patient.: Yes I have fully participated in the care of the patient.: Yes I have reviewed all pertinent clinical information, including history, physical exam and plan: Yes Notes (Text): Patient seen, examined and case discussed with day-time resident. Patient seen this morning. Patient denies fever, denies chills, denies chest pain, denies cough, denies abdominal pain, denies nausea, reports she continues to have pain over the right wrist and that the swelling and erythema have extended beyond the outline made yesterday. Patient reports she has tingling sensation in her hand as well. Patient reports frequency, and dysuria. Reviewed ultrasound report which remarked for tenosynovitis, infectious or noninfectious, clinical correlation is needed. Soft tissue edema, possibly cellulitis. Clinical correlation. Will transfer the patient out to general medical floor for IV abx and consult hand surgery and infectious disease. Patient's WBC had normalized while on one days worth of Clindamycin and two days worth of Macrobid. Assessment/Plan (1) Cellulitis of right hand Possible tenosynovitis Assessment & Plan: * Will consult Hand Surgery, Dr. Mullen-->for evaluation in light of ultrasound findings for evaluation and see if warrants debridement * Will consult infectious disease, Dr. Jefferson-->cellulitis, abscess, and possible tenosynovitis * Leukocytosis resolving * Patient completed Clindamycin 300mg PO Q 6H for one day * Patient had completed Macrobid 100mg PO bid for two days * Per UptoDate, will start Ciprofloxacin 400mg IV q12 H and start Vancomycin 1 gram IV q daily Imaging: * Right US (06/24/17): Tenosynovitis, infectious or noninfectious. Clinical correlation is needed. Soft tissue edema, possibly cellulitis. Clinical correlation is needed. Medications: * Cipro 400mg IV Q12H (start 06/25/17) * Vanco 1gm IV daily (start 06/25/17) * Motrin 600mg PO Q6H (For pain control) * Warm compresses x30 min Q4H * Florastor 250mg PO BID Transfer to medical surgical floor for IV abx Status: Acute (2) Tobacco abuse Assessment & Plan: * Nicotine 21mg/24 hr transdermal patch Status: Acute (3) Dysuria UTI (urinary tract infection) Assessment & Plan: * UA: 1+ protein, 2+ leukocyte esterase, 9 WBC, 5 RBC, few bacteria * UC: Gram negative DESTINY (<10,000 CFU) Medication: * Start Cipro 400mg IV Q12H * Patient had completed Macrobid 100mg PO bid for two days Status: Acute (4) Drug abuse Assessment & Plan: * Psychiatry, Dr. Kumar---> On board * UDS: +opiates, cocaine, barbiturates ology screen: +opiates, cocaine, barbiturates * Management as per psychiatry * Subtex detox * Gabapentin for augmentation * Seroquel 50mg PO HS and Trazadone 50mg PO HS for sleep Status: Acute (5) Hypokalemia Assessment & Plan: * K+: 3.5 * K-Dur 40meq once * Monitor with am labs Status: Acute (6) Prophylactic measure Assessment & Plan: * GI: Protonix 20mg PO daily * DVT: Ambulates, RISK: 0
[2017-06-25] MEDS ORDERED: Vancomycin 1 gm/NS 200 ml 1 GM/200 ML BAG IVPB SCH (17:00)
[2017-06-25 17:23] VITALS: RESP 20
[2017-06-25] MEDS: Ciprofloxacin 400mg/200ml D5W 400 MG/200 ML BAG IVPB SCH (18:03)
[2017-06-25] MEDS: Vancomycin 1 gm/NS 200 ml 1 GM/200 ML BAG IVPB SCH (19:42)
--- NOTE | 2017-06-25 20:24 | CP.PCM.CON ---
History of Present Illness - History of Present Illness History of Present Illness: Hand Surgery- Dr. Mullen 32F pmhx significant for Hep C, IVDA, presents to [facility] w/ right wrist pain and swelling that started after she injected cocaine w/ an old needle ; states entire needle came out. The pain is worse w/ gripping or flexion of wrist. The pain is localized w/ no radiation. Patient was transferred to the floor from rehab. Denies current: fevers, chills, chest pain, shortness of breath, nausea, vomiting diarrhea PMH: Hep C (2005) lost to follow up for treatment, etoh induced seizure, childhood seizures PSH: L. knee meniscus ALL: shellfish Social: 1ppd for > 20 yrs, 5-10 bags of cocaine daily for 3 yrs, Heroine 12- 15bags daily for [address] klonopin 2 1mg pill daily for 3 years; does not work, is homeless Review of Systems - Review of Systems All systems: reviewed and no additional remarkable complaints except - Constitutional Constitutional: As Per HPI Past Patient History - Infectious Disease Hx of Infectious Diseases: None - Past Medical History & Family History Past Medical History?: Yes - Past Social History Smoking Status: Heavy Smoker > 10 Cigarettes Daily - CARDIAC Hx Cardiac Disorders: No Hx Hypertension: No - PULMONARY Hx Respiratory Disorders: No Hx Tuberculosis: Yes (patient reports being prone for testing positive for TB) Other/Comment: "Never had TB" as per Patient - NEUROLOGICAL Hx Neurological Disorder: Yes Hx Seizures: Yes (" from alcohol withdrawal" as per Patient) - HEENT Hx HEENT Problems: No - RENAL Hx Chronic Kidney Disease: No - ENDOCRINE/METABOLIC Hx Endocrine Disorders: No - HEMATOLOGICAL/ONCOLOGICAL Hx Blood Disorders: Yes Hx Hepatitis C: Yes (Hep C+) Hx Human Immunodeficiency Virus (HIV): No - INTEGUMENTARY Hx Dermatological Problems: No - MUSCULOSKELETAL/RHEUMATOLOGICAL Hx Musculoskeletal Disorders: No Hx Falls: No - GASTROINTESTINAL Hx Gastrointestinal Disorders: No - GENITOURINARY/GYNECOLOGICAL Hx Genitourinary Disorders: Yes Hx Sexually Transmitted Disorders: No Hx Urinary Tract Infection: Yes (Currently, started on Macrobid) - PSYCHIATRIC Hx Substance Use: Yes - SURGICAL HISTORY Hx Surgeries: Yes Other/Comment: left knee surgery in 1999 - ANESTHESIA Hx Anesthesia: Yes Hx Anesthesia Reactions: No Hx Malignant Hyperthermia: No Has any member of the family had a problem w/ anesthesia?: No Meds Allergies/Adverse Reactions: Allergies Allergy/AdvReac Type Severity Reaction Status Date / Time shellfish derived Allergy Verified 06/23/17 20:36 SEAFOOD Allergy Uncoded 06/23/17 20:36 - Medications Medications: Current Medications Al Hydrox/Mg Hydrox/Simethicone (Maalox 30 Ml) 30 ml PO TID PRN PRN Reason: Indigestion / Heartburn Buprenorphine HCl (Subutex) 8 mg SL DAILY [facility] PRN Reason: Taper Stop: 06/30/17 09:59 Last Admin: 06/25/17 10:28 Dose: 8 mg Clonidine HCl (Catapres) 0.1 mg PO Q8 PRN PRN Reason: COWS Score More or Equal to 5 Last Admin: 06/25/17 16:34 Dose: 0.1 mg Folic Acid (Folic Acid) 1 mg PO DAILY [facility] Last Admin: 06/25/17 10:02 Dose: 1 mg Gabapentin (Neurontin) 300 mg PO TID [facility] Last Admin: 06/25/17 18:02 Dose: 300 mg Ciprofloxacin (Cipro 400mg/200ml Dsw) 400 mg in 200 mls @ 200 mls/hr IVPB Q12H [facility] Last Admin: 06/25/17 18:03 Dose: 200 mls/hr Vancomycin/Sodium Chloride (Vancomycin 1 Gm/Ns 200 Ml) 1 gm in 200 mls @ 133.333 mls/hr IVPB Q24H [facility] Stop: 06/30/17 20:01 Last Admin: 06/25/17 19:42 Dose: 133.333 mls/hr Ibuprofen (Motrin Tab) 600 mg PO Q6H PRN PRN Reason: Pain, moderate (4-7) Last Admin: 06/25/17 10:27 Dose: 600 mg Loperamide HCl (Imodium) 2 mg PO Q8 PRN PRN Reason: Diarrhea Lorazepam (Ativan) 1 mg PO Q6H PRN PRN Reason: Symptoms of alcohol withdrawl Last Admin: 06/25/17 18:14 Dose: 1 mg Multivitamins (Hexavitamin) 1 tab PO DAILY [facility] Last Admin: 06/25/17 10:02 Dose: 1 tab Nicotine (Nicoderm Cq) 1 patch TD DAILY [facility] Last Admin: 06/25/17 10:03 Dose: 1 patch Ondansetron HCl (Zofran Tab) 4 mg PO Q8 PRN PRN Reason: Nausea/Vomiting Pantoprazole Sodium (Protonix Ec Tab) 20 mg PO DAILY [facility] Quetiapine Fumarate (Seroquel) 50 mg PO HS [facility] Saccharomyces Boulardii (Florastor) 250 mg PO BID [facility] Last Admin: 06/25/17 18:02 Dose: 250 mg Thiamine HCl (Vitamin B1 Tab) 100 mg PO DAILY [facility] Last Admin: 06/25/17 10:03 Dose: 100 mg Trazodone HCl (Desyrel) 100 mg PO HS PRN PRN Reason: Insomnia Last Admin: 06/24/17 21:49 Dose: 100 mg Physical Exam - Constitutional Appears: Non-toxic, No Acute Distress, Unkempt - Head Exam Head Exam: ATRAUMATIC - Eye Exam Eye Exam: EOMI. absent: Scleral icterus - ENT Exam ENT Exam: Mucous Membranes Moist - Respiratory Exam Respiratory Exam: NORMAL BREATHING PATTERN. absent: Accessory Muscle Use, Respiratory Distress - Cardiovascular Exam Cardiovascular Exam: +S1, +S2. absent: Bradycardia, Tachycardia - GI/Abdominal Exam GI & Abdominal Exam: Soft. absent: Distended, Firm, Guarding, Rebound, Rigid, Tenderness - Extremities Exam Additional comments: + 2 radial pulses erythema and tender RUE. no signs of drainage. - Neurological Exam Neurological exam: Alert, Oriented x3 - Skin Skin Exam: Erythema, Intact, Warm Results - Vital Signs Recent Vital Signs: Last Vital Signs Temp 97.7 F 06/25/17 17:00 Pulse 93 H 06/25/17 17:00 Resp 20 06/25/17 17:00 BP 105/65 06/25/17 17:00 Pulse Ox 97 06/25/17 17:00 - Labs Result Diagrams: 06/25/17 07:50 06/25/17 07:50 Labs: Laboratory Results - last 24 hr 06/25/17 06/25/17 06/25/17 07:50 07:50 07:50 WBC 7.3 RBC 3.22 L Hgb 10.7 L Hct 30.3 L MCV 94.1 MCH 33.2 H MCHC 35.3 RDW 12.8 Plt Count 233 MPV 9.3 Neut % (Auto) 41.6 L Lymph % (Auto) 42.1 H Leake % (Auto) 10.7 H Eos % (Auto) 5.0 H Baso % (Auto) 0.6 Neut # (Auto) 3.1 Lymph # (Auto) 3.1 Leake # (Auto) 0.8 Eos # (Auto) 0.4 Baso # (Auto) 0.0 Sodium 136 Potassium 3.5 L Chloride 101 Carbon Dioxide 27 Anion Gap 12 BUN 11 Creatinine 0.6 L Est GFR ( Amer) > 60 Est GFR (Non-Af Amer) > 60 Random Glucose 115 H Calcium 8.5 L Total Bilirubin 0.4 AST 46 H ALT 47 Alkaline Phosphatase 54 Total Protein 6.2 L Albumin 3.3 L Globulin 2.9 Albumin/Globulin Ratio 1.1 HIV 1&2 Antibody Screen Negative Assessment & Plan - Assessment and Plan (Free Text) Assessment: 32F w/ R hand cellulitis vs abscess 2/2 IV drug use. no area of fluctuance at this time Plan: - warm compresses q2hrs - IV abx - serial pulse checks - will re-asses in AM to determine if area viable for debridement - further recs per Dr. Mullen surgical attending Addy Jimenes PGY1
--- NOTE | 2017-06-26 00:04 | CP.PCM.PN ---
<Elina Ortega - Last Filed: 06/26/17 00:02> Subjective - Date & Time of Evaluation Date of Evaluation: 06/26/17 Time of Evaluation: 00:00 - Subjective Subjective: Medicine Note for Hospitalist Service- Dr. Yee Patient was seen and examined at bedside. No acute complaints. Patient is resting in bed comfortably. Denied fever, chills, headache, chest pain, SOB, abdominal pain, n/v/d/c, or urinary symptoms. Objective - Vital Signs/Intake and Output Vital Signs (last 24 hours): Temp Pulse Resp BP Pulse Ox 97.7 F 93 H 20 105/65 97 06/25/17 17:00 06/25/17 17:00 06/25/17 17:00 06/25/17 17:00 06/25/17 17:00 - Medications Medications: Current Medications Al Hydrox/Mg Hydrox/Simethicone (Maalox 30 Ml) 30 ml PO TID PRN PRN Reason: Indigestion / Heartburn Buprenorphine HCl (Subutex) 8 mg SL DAILY [facility] PRN Reason: Taper Stop: 06/30/17 09:59 Last Admin: 06/25/17 10:28 Dose: 8 mg Clonidine HCl (Catapres) 0.1 mg PO Q8 PRN PRN Reason: COWS Score More or Equal to 5 Last Admin: 06/25/17 16:34 Dose: 0.1 mg Folic Acid (Folic Acid) 1 mg PO DAILY [facility] Last Admin: 06/25/17 10:02 Dose: 1 mg Gabapentin (Neurontin) 300 mg PO TID [facility] Last Admin: 06/25/17 18:02 Dose: 300 mg Ciprofloxacin (Cipro 400mg/200ml Dsw) 400 mg in 200 mls @ 200 mls/hr IVPB Q12H [facility] Last Admin: 06/25/17 18:03 Dose: 200 mls/hr Vancomycin/Sodium Chloride (Vancomycin 1 Gm/Ns 200 Ml) 1 gm in 200 mls @ 133.333 mls/hr IVPB Q24H [facility] Stop: 06/30/17 20:01 Last Admin: 06/25/17 19:42 Dose: 133.333 mls/hr Ibuprofen (Motrin Tab) 600 mg PO Q6H PRN PRN Reason: Pain, moderate (4-7) Last Admin: 06/25/17 22:32 Dose: 600 mg Loperamide HCl (Imodium) 2 mg PO Q8 PRN PRN Reason: Diarrhea Lorazepam (Ativan) 1 mg PO Q6H PRN PRN Reason: Symptoms of alcohol withdrawl Last Admin: 06/25/17 18:14 Dose: 1 mg Multivitamins (Hexavitamin) 1 tab PO DAILY [facility] Last Admin: 06/25/17 10:02 Dose: 1 tab Nicotine (Nicoderm Cq) 1 patch TD DAILY [facility] Last Admin: 06/25/17 10:03 Dose: 1 patch Ondansetron HCl (Zofran Tab) 4 mg PO Q8 PRN PRN Reason: Nausea/Vomiting Pantoprazole Sodium (Protonix Ec Tab) 20 mg PO DAILY [facility] Quetiapine Fumarate (Seroquel) 50 mg PO HS [facility] Last Admin: 06/25/17 22:33 Dose: 50 mg Saccharomyces Boulardii (Florastor) 250 mg PO BID [facility] Last Admin: 06/25/17 18:02 Dose: 250 mg Thiamine HCl (Vitamin B1 Tab) 100 mg PO DAILY [facility] Last Admin: 06/25/17 10:03 Dose: 100 mg Trazodone HCl (Desyrel) 100 mg PO HS PRN PRN Reason: Insomnia Last Admin: 06/24/17 21:49 Dose: 100 mg - Labs Labs: 06/25/17 07:50 06/25/17 07:50 - Additional Findings Additional findings: - Constitutional Appears: No Acute Distress - Head Exam Head Exam: ATRAUMATIC, NORMAL INSPECTION - Eye Exam Eye Exam: EOMI, Normal appearance - ENT Exam ENT Exam: Mucous Membranes Moist - Respiratory Exam Respiratory Exam: Clear to Ausculation Bilateral, NORMAL BREATHING PATTERN. absent: Prolonged Expiratory Phase, Rhonchi, Wheezes, Respiratory Distress, Stridor - Cardiovascular Exam Cardiovascular Exam: REGULAR RHYTHM, +S1, +S2. absent: Murmur - GI/Abdominal Exam GI & Abdominal Exam: Soft, Normal Bowel Sounds. absent: Distended, Guarding, Rigid, Tenderness - Extremities Exam Additional comments: Right wrist cellulitis Mildly warm to touch - Neurological Exam Neurological Exam: Alert, Awake - Psychiatric Exam Psychiatric exam: Normal Affect - Skin Skin Exam: Normal Color Assessment and Plan - Assessment and Plan (Free Text) Plan: (1) Cellulitis of right hand Possible tenosynovitis Assessment & Plan: * Will consult Hand Surgery, Dr. Mullen-->for evaluation in light of ultrasound findings for evaluation and see if warrants debridement * Will consult infectious disease, Dr. Jefferson-->cellulitis, abscess, and possible tenosynovitis * Leukocytosis resolving * Patient completed Clindamycin 300mg PO Q 6H for one day * Patient had completed Macrobid 100mg PO bid for two days * Per [facility], will start Ciprofloxacin 400mg IV q12 H and start Vancomycin 1 gram IV q daily Imaging: * Right US (06/24/17): Tenosynovitis, infectious or noninfectious. Clinical correlation is needed. Soft tissue edema, possibly cellulitis. Clinical correlation is needed. Medications: * Cipro 400mg IV Q12H (start 06/25/17) * Vanco 1gm IV daily (start 06/25/17) * Motrin 600mg PO Q6H (For pain control) * Warm compresses x30 min Q4H * Florastor 250mg PO BID Transferred to medical surgical floor for IV abx Status: Acute (2) Tobacco abuse Assessment & Plan: * Nicotine 21mg/24 hr transdermal patch Status: Acute (3) Dysuria UTI (urinary tract infection) Assessment & Plan: * UA: 1+ protein, 2+ leukocyte esterase, 9 WBC, 5 RBC, few bacteria * UC: Gram negative DESTINY (<10,000 CFU) Medication: * Start Cipro 400mg IV Q12H * Patient had completed Macrobid 100mg PO bid for two days Status: Acute (4) Drug abuse Assessment & Plan: * Psychiatry, Dr. Kumar---> On board * UDS: +opiates, cocaine, barbiturates ology screen: +opiates, cocaine, barbiturates * Management as per psychiatry * Subtex detox * Gabapentin for augmentation * Seroquel 50mg PO HS and Trazadone 50mg PO HS for sleep Status: Acute (5) Hypokalemia Assessment & Plan: * Monitor with am labs Status: Acute (6) Prophylactic measure Assessment & Plan: * GI: Protonix 20mg PO daily * DVT: Ambulates, RISK: 0 DW Elina Oh DO, PGY-1 <Alejandrina Yee V - Last Filed: 06/26/17 09:09> Objective - Vital Signs/Intake and Output Vital Signs (last 24 hours): Temp Pulse Resp BP Pulse Ox 97.8 F 77 20 100/65 99 06/26/17 07:31 06/26/17 07:31 06/26/17 07:31 18 07:31 06/26/17 07:31 Intake and Output: 06/26/17 06/26/17 06:59 18:59 Intake Total 760 680 Balance 760 680 - Medications Medications: Current Medications Al Hydrox/Mg Hydrox/Simethicone (Maalox 30 Ml) 30 ml PO TID PRN PRN Reason: Indigestion / Heartburn Buprenorphine HCl (Subutex) 8 mg SL DAILY [facility] PRN Reason: Taper Stop: 06/30/17 09:59 Last Admin: 06/25/17 10:28 Dose: 8 mg Clonidine HCl (Catapres) 0.1 mg PO Q8 PRN PRN Reason: COWS Score More or Equal to 5 Last Admin: 06/25/17 16:34 Dose: 0.1 mg Folic Acid (Folic Acid) 1 mg PO DAILY [facility] Last Admin: 06/25/17 10:02 Dose: 1 mg Gabapentin (Neurontin) 300 mg PO TID [facility] Last Admin: 06/25/17 18:02 Dose: 300 mg Ciprofloxacin (Cipro 400mg/200ml Dsw) 400 mg in 200 mls @ 200 mls/hr IVPB Q12H [facility] Last Admin: 06/26/17 05:32 Dose: 200 mls/hr Vancomycin/Sodium Chloride (Vancomycin 1 Gm/Ns 200 Ml) 1 gm in 200 mls @ 133.333 mls/hr IVPB Q24H [facility] Stop: 06/30/17 20:01 Last Admin: 06/25/17 19:42 Dose: 133.333 mls/hr Ibuprofen (Motrin Tab) 600 mg PO Q6H PRN PRN Reason: Pain, moderate (4-7) Last Admin: 06/25/17 22:32 Dose: 600 mg Loperamide HCl (Imodium) 2 mg PO Q8 PRN PRN Reason: Diarrhea Lorazepam (Ativan) 1 mg PO Q6H PRN PRN Reason: Symptoms of alcohol withdrawl Last Admin: 06/25/17 18:14 Dose: 1 mg Multivitamins (Hexavitamin) 1 tab PO DAILY [facility] Last Admin: 06/25/17 10:02 Dose: 1 tab Nicotine (Nicoderm Cq) 1 patch TD DAILY [facility] Last Admin: 06/25/17 10:03 Dose: 1 patch Ondansetron HCl (Zofran Tab) 4 mg PO Q8 PRN PRN Reason: Nausea/Vomiting Pantoprazole Sodium (Protonix Ec Tab) 20 mg PO DAILY [facility] Quetiapine Fumarate (Seroquel) 50 mg PO HS [facility] Last Admin: 06/25/17 22:33 Dose: 50 mg Saccharomyces Boulardii (Florastor) 250 mg PO BID [facility] Last Admin: 06/25/17 18:02 Dose: 250 mg Thiamine HCl (Vitamin B1 Tab) 100 mg PO DAILY [facility] Last Admin: 06/25/17 10:03 Dose: 100 mg Trazodone HCl (Desyrel) 100 mg PO HS PRN PRN Reason: Insomnia Last Admin: 06/24/17 21:49 Dose: 100 mg - Labs Labs: 06/26/17 07:09 06/26/17 07:09 Attending/Attestation - Attestation I have personally seen and examined this patient.: Yes I have fully participated in the care of the patient.: Yes I have reviewed all pertinent clinical information, including history, physical exam and plan: Yes Notes (Text): Patient seen, examined and case discussed with day-time resident. Patient seen this morning. Patient denies fever, denies chills, denies chest pain, denies cough, denies abdominal pain, denies nausea, reports she continues to have pain over the right wrist and that the swelling and erythema have extended beyond the outline. Patient reports she has tingling sensation in her hand as well. Patient reports frequency, and dysuria. Patient is very upset she may not get her medication for heroin withdrawal while on the medical floor. I have explained to her that she is on the medical floor because of her right hand and that further evaluation warranted to see if needs surgical debridement. Reviewed ultrasound report which remarked for tenosynovitis, infectious or noninfectious, clinical correlation is needed. Soft tissue edema, possibly cellulitis. Clinical correlation. Will need to continue IV abx Follow-up with surgery to see if needs further intervention Switch her Pain PRN to IV toradol to reduce inflammation Assessment/Plan (1) Cellulitis of right hand Possible tenosynovitis Assessment & Plan: * Will consult Hand Surgery, Dr. Mullen-->for evaluation in light of ultrasound findings for evaluation and see if warrants debridement * Order for EKG for baseline * Will consult infectious disease, Dr. Stroud-->cellulitis, abscess, and possible tenosynovitis * Leukocytosis resolving * Patient completed Clindamycin 300mg PO Q 6H for one day * Patient had completed Macrobid 100mg PO bid for two days * Per UptoDate, will start Ciprofloxacin 400mg IV q12 H (active since 06/25/17) and start Vancomycin 1 gram IV q daily (active since 06/25/17) Imaging: * Right US (06/24/17): Tenosynovitis, infectious or noninfectious. Clinical correlation is needed. Soft tissue edema, possibly cellulitis. Clinical correlation is needed. Medications: * Cipro 400mg IV Q12H (start 06/25/17) * Vanco 1gm IV daily (start 06/25/17) * Toradol 15mg IV Q6H PRN severe pain * Warm compresses x30 min Q4H * Florastor 250mg PO BID Status: Acute (2) Tobacco abuse Assessment & Plan: * Nicotine 21mg/24 hr transdermal patch Status: Acute (3) Dysuria UTI (urinary tract infection) Assessment & Plan: * UA: 1+ protein, 2+ leukocyte esterase, 9 WBC, 5 RBC, few bacteria * UC: Gram negative DESTINY (<10,000 CFU) Medication: * Start Cipro 400mg IV Q12H (active since 06/25/17) * Patient had completed Macrobid 100mg PO bid for two days Status: Acute (4) Drug abuse Assessment & Plan: * Psychiatry, Dr. Kumar---> On board * UDS: +opiates, cocaine, barbiturates ology screen: +opiates, cocaine, barbiturates * Management as per psychiatry * Subtex detox * Gabapentin for augmentation * Seroquel 50mg PO HS and Trazadone 50mg PO HS for sleep Status: Acute (5) Hypokalemia Assessment & Plan: * monitor replete * Monitor with am labs Status: Acute (6) Anemia Assessment & Plan: * Order for reticulocyte count, ferritin, TIBC, iron, folate, B12 Status: Acute (7) Hepatitis C+ Assessment & Plan: * Hepatitis C and HIV 1/2 Status: Chronic (8) Prophylactic measure Assessment & Plan: * GI: Protonix 20mg PO daily * DVT: Ambulates, RISK: 0
[2017-06-26] MEDS: Ciprofloxacin 400mg/200ml D5W 400 MG/200 ML BAG IVPB SCH ×2 (05:32→17:34)
[2017-06-26 07:30] LABS: BASO # 0.1 K/uL (0.0-0.2); BASO % 0.8 % (0.0-2.0); EOS # 0.4 K/uL (0.0-0.7); EOS % 6.3 % (0.0-4.0); HEMOGLOBIN 10.5 g/dL (11.0-16.0); LYMPH # 3.1 K/uL (1.0-4.3); LYMPH % 46.5 % (20.0-40.0); MEAN CELL VOLUME 94.2 fL (81.0-99.0); MEAN CORPUSCULAR HEMOGLOBIN 32.8 pg (27.0-31.0); MEAN CORPUSCULAR HGB CONC 34.8 g/dL (33.0-37.0); MEAN PLATELET VOLUME 9.1 fL (7.2-11.7); MONO # 0.6 K/uL (0.0-0.8); MONO % 9.5 % (0.0-10.0); NEUT # 2.5 K/uL (1.8-7.0); NEUT % 36.9 % (50.0-75.0); RBC 3.21 Mil/uL (3.80-5.20); RED CELL DISTRIBUTION WIDTH 12.9 % (11.5-14.5); WHITE BLOOD COUNT 6.8 K/uL (4.8-10.8)
[2017-06-26 07:45] LABS: ALB/GLOB RATIO 1.3 (1.0-2.1); ALBUMIN 3.2 g/dL (3.5-5.0); ALT/SGPT 42 U/L (9-52); AST/SGOT 32 U/L (14-36); BLOOD UREA NITROGEN 14 mg/dL (7-17); CALCIUM 8.4 mg/dl (8.6-10.4); GFR AFRICAN-AMERICAN > 60; GFR NON-AFRICAN AMERICAN > 60
--- NOTE | 2017-06-26 08:59 | CP.PCM.PN ---
Subjective - Date & Time of Evaluation Date of Evaluation: 06/26/17 Time of Evaluation: 07:30 - Subjective Subjective: Hand and plastics surgery- Dr. Mullen Pt S&E at bedside this AM. patient complaining of increased pain, however she states it feels like detox pain. RUE erythema significantly decreased. palpable radial pulses b/l +2. denies cp/ sob N/V/D, numbness/parathesia in extremities Objective - Vital Signs/Intake and Output Vital Signs (last 24 hours): Temp Pulse Resp BP Pulse Ox 97.8 F 77 20 100/65 99 06/26/17 07:31 06/26/17 07:31 06/26/17 07:31 06/26/17 07:31 06/26/17 07:31 Intake and Output: 06/26/17 06/26/17 06:59 18:59 Intake Total 760 680 Balance 760 680 - Medications Medications: Current Medications Al Hydrox/Mg Hydrox/Simethicone (Maalox 30 Ml) 30 ml PO TID PRN PRN Reason: Indigestion / Heartburn Buprenorphine HCl (Subutex) 8 mg SL DAILY [facility] PRN Reason: Taper Stop: 06/30/17 09:59 Last Admin: 06/25/17 10:28 Dose: 8 mg Clonidine HCl (Catapres) 0.1 mg PO Q8 PRN PRN Reason: COWS Score More or Equal to 5 Last Admin: 06/25/17 16:34 Dose: 0.1 mg Folic Acid (Folic Acid) 1 mg PO DAILY [facility] Last Admin: 06/25/17 10:02 Dose: 1 mg Gabapentin (Neurontin) 300 mg PO TID [facility] Last Admin: 06/25/17 18:02 Dose: 300 mg Ciprofloxacin (Cipro 400mg/200ml Dsw) 400 mg in 200 mls @ 200 mls/hr IVPB Q12H [facility] Last Admin: 06/26/17 05:32 Dose: 200 mls/hr Vancomycin/Sodium Chloride (Vancomycin 1 Gm/Ns 200 Ml) 1 gm in 200 mls @ 133.333 mls/hr IVPB Q24H [facility] Stop: 06/30/17 20:01 Last Admin: 06/25/17 19:42 Dose: 133.333 mls/hr Ibuprofen (Motrin Tab) 600 mg PO Q6H PRN PRN Reason: Pain, moderate (4-7) Last Admin: 06/25/17 22:32 Dose: 600 mg Loperamide HCl (Imodium) 2 mg PO Q8 PRN PRN Reason: Diarrhea Lorazepam (Ativan) 1 mg PO Q6H PRN PRN Reason: Symptoms of alcohol withdrawl Last Admin: 06/25/17 18:14 Dose: 1 mg Multivitamins (Hexavitamin) 1 tab PO DAILY [facility] Last Admin: 06/25/17 10:02 Dose: 1 tab Nicotine (Nicoderm Cq) 1 patch TD DAILY [facility] Last Admin: 06/25/17 10:03 Dose: 1 patch Ondansetron HCl (Zofran Tab) 4 mg PO Q8 PRN PRN Reason: Nausea/Vomiting Pantoprazole Sodium (Protonix Ec Tab) 20 mg PO DAILY [facility] Quetiapine Fumarate (Seroquel) 50 mg PO HS [facility] Last Admin: 06/25/17 22:33 Dose: 50 mg Saccharomyces Boulardii (Florastor) 250 mg PO BID [facility] Last Admin: 06/25/17 18:02 Dose: 250 mg Thiamine HCl (Vitamin B1 Tab) 100 mg PO DAILY [facility] Last Admin: 06/25/17 10:03 Dose: 100 mg Trazodone HCl (Desyrel) 100 mg PO HS PRN PRN Reason: Insomnia Last Admin: 06/24/17 21:49 Dose: 100 mg - Labs Labs: 06/26/17 07:09 06/26/17 07:09 - Constitutional Appears: Non-toxic, No Acute Distress, Unkempt - Eye Exam Eye Exam: EOMI. absent: Scleral icterus - ENT Exam ENT Exam: Mucous Membranes Moist - Respiratory Exam Respiratory Exam: NORMAL BREATHING PATTERN. absent: Accessory Muscle Use, Respiratory Distress - Cardiovascular Exam Cardiovascular Exam: +S1, +S2. absent: Bradycardia, Tachycardia - GI/Abdominal Exam GI & Abdominal Exam: Soft. absent: Distended, Firm, Guarding, Rigid, Tenderness - Extremities Exam Additional comments: Erythema dcreased and inside the marking indurated no fluctuant palpable pockets for possible drainage +2 Radial pulses b/L - Neurological Exam Neurological Exam: Alert, Awake, Oriented x3 - Skin Skin Exam: Erythema, Intact, Warm Assessment and Plan - Assessment and Plan (Free Text) Assessment: 32F w/ R hand cellulitis 2/2 IV drug use. no area of fluctuance at this time erythema improving Plan: - warm compresses q2hrs - IV abx - serial pulse checks - conservative management will most likley resolve - no acute surgical intervention at this time - discussed w/ Dr. Mullen surgical attending Addy Jimenes PGY1
[2017-06-26 09:30] LABS: HEPATITIS B SURFACE AG Negative (NEGATIVE)
[2017-06-26 09:36] LABS: HEPATITIS A IGM NEGATIVE (NEGATIVE); HEPATITIS B CORE AB NEGATIVE (NEGATIVE)
[2017-06-26] MEDS: Multiple Vitamins Tab PO SCH (09:46)
[2017-06-26] MEDS: Saccharomyces Boulardi 250 mg Cap PO SCH ×2 (09:46→17:35)
[2017-06-26] MEDS: Pantoprazole 20 mg EC Tab PO SCH (09:47)
[2017-06-26 10:29] LABS: IRON 69 ug/dL (37-170)
[2017-06-26] MEDS: Buprenorphine Hydrochloride 2 mg SL SCH (10:30)
[2017-06-26 10:39] LABS: % IRON SATURATION 27 (20-55); TOTAL IRON BINDING CAPACITY 260 ug/dL (250-450)
[2017-06-26 11:06] LABS: FERRITIN 63.9 ng/mL
[2017-06-26 11:36] LABS: FOLATE 12.3 ng/mL
[2017-06-26 12:13] LABS: INR 0.9
[2017-06-26 14:04] LABS: HEPATITIS C ANTIBODY REACTIVE (NEGATIVE)
[2017-06-26] MEDS ORDERED: Buprenorphine Hydrochloride 2 mg SL ONE (17:20)
[2017-06-26] MEDS: Vancomycin 1 gm/NS 200 ml 1 GM/200 ML BAG IVPB SCH (20:00)
[2017-06-26] MEDS: Naproxen 550 mg Tab PO SCH (22:18)
--- NOTE | 2017-06-27 00:47 | CP.PCM.PN ---
<Elina Ortega - Last Filed: 06/27/17 00:45> Subjective - Date & Time of Evaluation Date of Evaluation: 06/27/17 Time of Evaluation: 00:45 - Subjective Subjective: Medicine Note for Hospitalist Service- Dr. Yee Patient was seen and examined at bedside. No acute complaints. Patient is resting in bed comfortably. Denied fever, chills, headache, chest pain, SOB, abdominal pain, n/v/d/c, or urinary symptoms. Objective - Vital Signs/Intake and Output Vital Signs (last 24 hours): Temp Pulse Resp BP Pulse Ox 97.8 F 77 20 100/65 99 06/26/17 07:31 06/26/17 07:31 06/26/17 07:31 06/26/17 07:31 06/26/17 07:31 Intake and Output: 06/26/17 06/27/17 18:59 06:59 Intake Total 680 Balance 680 - Medications Medications: Current Medications Al Hydrox/Mg Hydrox/Simethicone (Maalox 30 Ml) 30 ml PO TID PRN PRN Reason: Indigestion / Heartburn Last Admin: 06/26/17 09:47 Dose: 30 ml Buprenorphine HCl (Subutex) 6 mg SL DAILY [facility] PRN Reason: Taper Stop: 06/30/17 09:59 Last Admin: 06/26/17 10:30 Dose: 6 mg Clonidine HCl (Catapres) 0.1 mg PO Q8 PRN PRN Reason: COWS Score More or Equal to 5 Last Admin: 06/25/17 16:34 Dose: 0.1 mg Folic Acid (Folic Acid) 1 mg PO DAILY [facility] Last Admin: 06/26/17 09:46 Dose: 1 mg Gabapentin (Neurontin) 300 mg PO TID [facility] Last Admin: 06/26/17 17:36 Dose: 300 mg Ciprofloxacin (Cipro 400mg/200ml Dsw) 400 mg in 200 mls @ 200 mls/hr IVPB Q12H [facility] Last Admin: 06/26/17 17:34 Dose: 200 mls/hr Vancomycin/Sodium Chloride (Vancomycin 1 Gm/Ns 200 Ml) 1 gm in 200 mls @ 133.333 mls/hr IVPB Q24H [facility] Stop: 06/30/17 20:01 Last Admin: 06/26/17 20:00 Dose: 133.333 mls/hr Ketorolac Tromethamine (Toradol) 30 mg IVP Q6 PRN PRN Reason: Pain, severe (8-10) Last Admin: 06/26/17 22:25 Dose: 30 mg Loperamide HCl (Imodium) 2 mg PO Q8 PRN PRN Reason: Diarrhea Lorazepam (Ativan) 1 mg PO Q6H PRN PRN Reason: Symptoms of alcohol withdrawl Last Admin: 06/26/17 22:26 Dose: 1 mg Multivitamins (Hexavitamin) 1 tab PO DAILY [facility] Last Admin: 06/26/17 09:46 Dose: 1 tab Naproxen (Anaprox Ds) 550 mg PO BID [facility] Last Admin: 06/26/17 22:18 Dose: 550 mg Nicotine (Nicoderm Cq) 1 patch TD DAILY [facility] Last Admin: 06/26/17 09:47 Dose: 1 patch Ondansetron HCl (Zofran Tab) 4 mg PO Q8 PRN PRN Reason: Nausea/Vomiting Pantoprazole Sodium (Protonix Ec Tab) 20 mg PO DAILY [facility] Last Admin: 06/26/17 09:47 Dose: 20 mg Quetiapine Fumarate (Seroquel) 50 mg PO HS [facility] Last Admin: 06/26/17 22:12 Dose: 50 mg Saccharomyces Boulardii (Florastor) 250 mg PO BID [facility] Last Admin: 06/26/17 17:35 Dose: 250 mg Thiamine HCl (Vitamin B1 Tab) 100 mg PO DAILY [facility] Last Admin: 06/26/17 09:45 Dose: 100 mg Trazodone HCl (Desyrel) 100 mg PO HS PRN PRN Reason: Insomnia Last Admin: 06/26/17 22:11 Dose: 100 mg - Labs Labs: 06/26/17 07:09 06/26/17 07:09 PT 10.0 SECONDS (9.7-12.2) 06/26/17 11:54 INR 0.9 06/26/17 11:54 - Additional Findings Additional findings: - Constitutional Appears: No Acute Distress - Head Exam Head Exam: ATRAUMATIC, NORMAL INSPECTION - Eye Exam Eye Exam: EOMI, Normal appearance - ENT Exam ENT Exam: Mucous Membranes Moist - Respiratory Exam Respiratory Exam: Clear to Ausculation Bilateral, NORMAL BREATHING PATTERN. absent: Prolonged Expiratory Phase, Rhonchi, Wheezes, Respiratory Distress, Stridor - Cardiovascular Exam Cardiovascular Exam: REGULAR RHYTHM, +S1, +S2. absent: Murmur - GI/Abdominal Exam GI & Abdominal Exam: Soft, Normal Bowel Sounds. absent: Distended, Guarding, Rigid, Tenderness - Extremities Exam Additional comments: Right wrist cellulitis Mildly warm to touch - Neurological Exam Neurological Exam: Alert, Awake - Psychiatric Exam Psychiatric exam: Normal Affect - Skin Skin Exam: Normal Color Assessment and Plan - Assessment and Plan (Free Text) Plan: (1) Cellulitis of right hand Possible tenosynovitis Assessment & Plan: * Will consult Hand Surgery, Dr. Mullen-->for evaluation in light of ultrasound findings for evaluation and see if warrants debridement * Order for EKG for baseline * Will consult infectious disease, Dr. Stroud-->cellulitis, abscess, and possible tenosynovitis * Leukocytosis resolving * Patient completed Clindamycin 300mg PO Q 6H for one day * Patient had completed Macrobid 100mg PO bid for two days * Per UptoDate, will start Ciprofloxacin 400mg IV q12 H (active since 06/25/17) and start Vancomycin 1 gram IV q daily (active since 06/25/17) Imaging: * Right US (06/24/17): Tenosynovitis, infectious or noninfectious. Clinical correlation is needed. Soft tissue edema, possibly cellulitis. Clinical correlation is needed. Medications: * Cipro 400mg IV Q12H (start 06/25/17) * Vanco 1gm IV daily (start 06/25/17) * Toradol 15mg IV Q6H PRN severe pain * Warm compresses x30 min Q4H * Florastor 250mg PO BID Status: Acute (2) Tobacco abuse Assessment & Plan: * Nicotine 21mg/24 hr transdermal patch Status: Acute (3) Dysuria UTI (urinary tract infection) Assessment & Plan: * UA: 1+ protein, 2+ leukocyte esterase, 9 WBC, 5 RBC, few bacteria * UC: Gram negative DESTINY (<10,000 CFU) Medication: * Start Cipro 400mg IV Q12H (active since 06/25/17) * Patient had completed Macrobid 100mg PO bid for two days Status: Acute (4) Drug abuse Assessment & Plan: * Psychiatry, Dr. Kumar---> On board * UDS: +opiates, cocaine, barbiturates ology screen: +opiates, cocaine, barbiturates * Management as per psychiatry * Subtex detox * Gabapentin for augmentation * Seroquel 50mg PO HS and Trazadone 50mg PO HS for sleep Status: Acute (5) Hypokalemia Assessment & Plan: * monitor replete * Monitor with am labs Status: Acute (6) Anemia Assessment & Plan: * Order for reticulocyte count, ferritin, TIBC, iron, folate, B12 Status: Acute (7) Hepatitis C+ Assessment & Plan: * Hepatitis C and HIV 1/2 Status: Chronic (8) Prophylactic measure Assessment & Plan: * GI: Protonix 20mg PO daily * DVT: Ambulates, RISK: [address] Yee, Elina Ortega DO, PGY-1 <Alejandrina Yee V - Last Filed: 06/27/17 10:46> Objective - Vital Signs/Intake and Output Vital Signs (last 24 hours): Temp Pulse Resp BP Pulse Ox 97.5 F L 89 20 103/67 97 06/27/17 07:47 06/27/17 07:47 06/27/17 07:47 06/27/17 07:47 06/27/17 07:47 Intake and Output: 06/27/17 06/27/17 06:59 18:59 Intake Total 950 Balance 950 - Medications Medications: Current Medications Al Hydrox/Mg Hydrox/Simethicone (Maalox 30 Ml) 30 ml PO TID PRN PRN Reason: Indigestion / Heartburn Last Admin: 06/26/17 09:47 Dose: 30 ml Buprenorphine HCl (Subutex) 4 mg SL DAILY [facility] PRN Reason: Taper Stop: 06/30/17 09:59 Last Admin: 06/27/17 09:13 Dose: 4 mg Clonidine HCl (Catapres) 0.1 mg PO Q8 PRN PRN Reason: COWS Score More or Equal to 5 Last Admin: 06/25/17 16:34 Dose: 0.1 mg Folic Acid (Folic Acid) 1 mg PO DAILY [facility] Last Admin: 06/27/17 09:13 Dose: 1 mg Gabapentin (Neurontin) 300 mg PO TID [facility] Last Admin: 06/27/17 09:12 Dose: 300 mg Ciprofloxacin (Cipro 400mg/200ml Dsw) 400 mg in 200 mls @ 200 mls/hr IVPB Q12H [facility] Last Admin: 06/27/17 05:25 Dose: 200 mls/hr Vancomycin/Sodium Chloride (Vancomycin 1 Gm/Ns 200 Ml) 1 gm in 200 mls @ 133.333 mls/hr IVPB Q24H [facility] Stop: 06/30/17 20:01 Last Admin: 06/26/17 20:00 Dose: 133.333 mls/hr Ketorolac Tromethamine (Toradol) 30 mg IVP Q6 PRN PRN Reason: Pain, severe (8-10) Last Admin: 06/27/17 05:37 Dose: 30 mg Loperamide HCl (Imodium) 2 mg PO Q8 PRN PRN Reason: Diarrhea Lorazepam (Ativan) 1 mg PO Q6H PRN PRN Reason: Symptoms of alcohol withdrawl Last Admin: 06/27/17 09:15 Dose: 1 mg Multivitamins (Hexavitamin) 1 tab PO DAILY [facility] Last Admin: 06/27/17 09:12 Dose: 1 tab Naproxen (Anaprox Ds) 550 mg PO BID [facility] Last Admin: 06/27/17 09:13 Dose: 550 mg Nicotine (Nicoderm Cq) 1 patch TD DAILY [facility] Last Admin: 06/27/17 09:15 Dose: 1 patch Ondansetron HCl (Zofran Tab) 4 mg PO Q8 PRN PRN Reason: Nausea/Vomiting Pantoprazole Sodium (Protonix Ec Tab) 20 mg PO DAILY [facility] Last Admin: 06/27/17 09:15 Dose: 20 mg Quetiapine Fumarate (Seroquel) 50 mg PO HS [facility] Last Admin: 06/26/17 22:12 Dose: 50 mg Saccharomyces Boulardii (Florastor) 250 mg PO BID [facility] Last Admin: 06/27/17 09:14 Dose: 250 mg Thiamine HCl (Vitamin B1 Tab) 100 mg PO DAILY [facility] Last Admin: 06/27/17 09:13 Dose: 100 mg Trazodone HCl (Desyrel) 100 mg PO HS PRN PRN Reason: Insomnia Last Admin: 06/26/17 22:11 Dose: 100 mg - Labs Labs: 06/27/17 07:05 06/27/17 07:05 PT 10.0 SECONDS (9.7-12.2) 06/26/17 11:54 INR 0.9 06/26/17 11:54 Attending/Attestation - Attestation I have personally seen and examined this patient.: Yes I have fully participated in the care of the patient.: Yes I have reviewed all pertinent clinical information, including history, physical exam and plan: Yes Notes (Text): Patient seen, examined, case discussed with medical physiologist. Patient seen this morning. Patient denies diarrhea denies altered mental status denies headache denies fever denies chills denies chest pain denies palpitations however she is reporting pain over the right wrist, swelling, and feels like something is protruding out. Patient does note swelling over the right thenar eminence as well as over the fingers of her right hand which is not present over her left hand. We'll need to follow up with hand surgeon team given that it does appear the patient looks like she has abscess.. We'll order for MRI of right hand to evaluate further. Patient is afebrile does not present with any elevated white count and is currently on IV antibiotics. Today patient is on day 3 of Subutex taper taper. Patient is on Toradol for pain control will not start narcotic medication in light of opioid heroin history. We'll continued to monitor patient. Assessment/Plan (1) Cellulitis of right hand Possible tenosynovitis Assessment & Plan: * Hand Surgery, Dr. Mullen-->for evaluation in light of ultrasound findings for evaluation and see if warrants debridement * EKG: Low voltage, normal sinus rhythm, no prolonged QT. * INR normal * Follow-up with surgery * We'll order MRI of the hand * Infectious disease, Dr. Stroud-->cellulitis, abscess, and possible tenosynovitis * Leukocytosis resolving * Patient completed Clindamycin 300mg PO Q 6H for one day * Patient had completed Macrobid 100mg PO bid for two days * Per UptoDate, will start Ciprofloxacin 400mg IV q12 H (active since 06/25/17) and start Vancomycin 1 gram IV q daily (active since 06/25/17) * Vancomycin trough on June 28 Imaging: * Right US (06/24/17): Tenosynovitis, infectious or noninfectious. Clinical correlation is needed. Soft tissue edema, possibly cellulitis. Clinical correlation is needed. Medications: * Cipro 400mg IV Q12H (start 06/25/17) * Vanco 1gm IV daily (start 06/25/17) * Vancomycin trough on June 28 * Toradol 15mg IV Q6H PRN severe pain * Warm compresses x30 min Q4H * Florastor 250mg PO BID Status: Acute (2) Tobacco abuse Assessment & Plan: * Nicotine 21mg/24 hr transdermal patch Status: Acute (3) Dysuria UTI (urinary tract infection) Assessment & Plan: * UA: 1+ protein, 2+ leukocyte esterase, 9 WBC, 5 RBC, few bacteria * UC: Gram negative DESTINY (<10,000 CFU) * Repeat urine culture Medication: * Start Cipro 400mg IV Q12H (active since 06/25/17) * Patient had completed Macrobid 100mg PO bid for two days Status: Acute (4) Drug abuse Assessment & Plan: * Psychiatry, Dr. Kumar---> On board * UDS: +opiates, cocaine, barbiturates * Management as per psychiatry * Subtex detox (Day 3 of taper) * Gabapentin for augmentation * Seroquel 50mg PO HS * Trazadone 50mg PO HS for sleep Status: Acute (5) Hypokalemia Assessment & Plan: * monitor replete * Monitor with am labs Status: Acute (6) Anemia Assessment & Plan: * reticulocyte count:1.8 F * Ferritin: 63.9 * TIBC: 260 * Iron: 69 * %iron saturation: 27 * Folate: 12.3 * B12:553 * Monitor H/H Status: Acute (7) Hepatitis C+ Assessment & Plan: * Hepatitis C Reactive * HIV 1/2: negative Status: Chronic (8) Prophylactic measure Assessment & Plan: * GI: Protonix 20mg PO daily * DVT: Ambulates, RISK: 0
[2017-06-27] MEDS: Ciprofloxacin 400mg/200ml D5W 400 MG/200 ML BAG IVPB SCH ×2 (05:25→18:08)
[2017-06-27 07:11] LABS: BASO % 0.8 % (0.0-2.0); EOS # 0.4 K/uL (0.0-0.7); EOS % 6.1 % (0.0-4.0); HEMOGLOBIN 9.7 g/dL (11.0-16.0); LYMPH % 46.2 % (20.0-40.0); MEAN CELL VOLUME 94.9 fL (81.0-99.0); MEAN CORPUSCULAR HEMOGLOBIN 32.5 pg (27.0-31.0); MEAN CORPUSCULAR HGB CONC 34.2 g/dL (33.0-37.0); MEAN PLATELET VOLUME 8.8 fL (7.2-11.7); MONO # 0.6 K/uL (0.0-0.8); MONO % 8.8 % (0.0-10.0); NEUT # 2.5 K/uL (1.8-7.0); NEUT % 38.1 % (50.0-75.0); RBC 2.99 Mil/uL (3.80-5.20); RED CELL DISTRIBUTION WIDTH 12.6 % (11.5-14.5); WHITE BLOOD COUNT 6.5 K/uL (4.8-10.8)
[2017-06-27 07:29] LABS: ALB/GLOB RATIO 1.1 (1.0-2.1); ALT/SGPT 44 U/L (9-52); AST/SGOT 32 U/L (14-36); BLOOD UREA NITROGEN 16 mg/dL (7-17); CALCIUM 8.1 mg/dl (8.6-10.4); GFR AFRICAN-AMERICAN > 60; GFR NON-AFRICAN AMERICAN > 60
[2017-06-27] MEDS: Multiple Vitamins Tab PO SCH (09:12)
[2017-06-27] MEDS: Naproxen 550 mg Tab PO SCH (09:13)
[2017-06-27] MEDS: Buprenorphine Hydrochloride 2 mg SL SCH (09:13)
[2017-06-27] MEDS: Saccharomyces Boulardi 250 mg Cap PO SCH ×2 (09:14→18:08)
[2017-06-27] MEDS: Pantoprazole 20 mg EC Tab PO SCH (09:15)
[2017-06-27] MEDS ORDERED: Naproxen 550 mg Tab PO SCH (10:00)
[2017-06-27] MEDS ORDERED: MethylPREDNISolone 40 mg Vial IVP STA (10:08)
--- NOTE | 2017-06-27 17:10 | CP.PCM.CON ---
History of Present Illness - History of Present Illness History of Present Illness: Patient is a 32 y/o female who presents to the hospital with complaint of right wrist pain, warmth, and swelling. She states the pain started last night after she injected cocaine IV with an old needle. Pain and swelling less since starting IV antibiotics came for detox Social Hx: smokes 1 pack of cigarettes daily for 20 yrs., smokes 5-10 bags of cocaine daily for 3 yrs., uses heroine IV 12-15 bags daily on/off for 15 yrs., Klonopin 2 1mg pill daily for 3 yrs.; homeless; does not work; has one son who does not live with her. MHx: Hep. C (diagnosed in 2005); alcohol-induced seizure (2010); history of multiple seizures as a child Allergies: shellfish (anaphylactic shock) SHx: left knee meniscus repair; 1 vaginal delivery Hosp: psych detox >10x FHx: mom of metastatic breast CA; dad living, depression Meds: denies; received treatment of Hep. C in 2006 but failed and never returned for follow up Review of Systems - Review of Systems All systems: reviewed and no additional remarkable complaints except - Constitutional Constitutional: As Per HPI - EENT Eyes: absent: As Per HPI, Blind Spots, Blurred Vision, Change in Vision, Decreased Night Vision, Diplopia, Discharge, Dry Eye, Exophthalmos, Floaters, Irritation, Itchy Eyes, Loss of Peripheral Vision, Pain, Photophobia, Requires Corrective Lenses, Sees Flashes, Spots in Vision, Tunnel Vision, Other Visual Disturbances, Loss of Vision, Other Ears: absent: As Per HPI, Decreased Hearing, Ear Discharge, Ear Pain, Tinnitus, Abnormal Hearing, Disequilibrium, Dizziness, Other Nose/Mouth/Throat: absent: As Per HPI, Epistaxis, Nasal Congestion, Nasal Discharge, Nasal Obstruction, Nasal Trauma, Nose Pain, Post Nasal Drip, Sinus Pain, Sinus Pressure, Bleeding Gums, Change in Voice, Dental Pain, Dry Mouth, Dysphagia, Halitosis, Hoarsness, Lip Swelling, Mouth Lesions, Mouth Pain, Odynophagia, Sore Throat, Throat Swelling, Tongue Swelling, Facial Pain, Neck Pain, Neck Mass, Other - Breasts Breasts: absent: As Per HPI, Change in Shape, Mass, Pain, Nipple Discharge, Nipple Inversion, Skin Changes, Swelling, Other - Cardiovascular Cardiovascular: absent: As Per HPI, Acrocyanosis, Chest Pain, Chest Pain at Rest , Chest Pain with Activity, Claudication, Diaphoresis, Dyspnea, Dyspnea on Exertion, Edema, Irregular Heart Rhythm, Pain Radiating to Arm/Neck/Jaw, Leg Edema, Leg Ulcers, Lightheadedness, Orthopnea, Palpitations, Paroxysmal Nocturnal Dyspnea, Pedal Edema, Radiating Pain, Rapid Heart Rate, Slow Heart Rate, Syncope, Other - Respiratory Respiratory: absent: As Per HPI, Cough, Dyspnea, Hemoptysis, Dyspnea on Exertion , Wheezing, Snoring, Stridor, Pain on Inspiration, Chest Congestion, Excessive Mucous Production, Change in Mucous Color, Pain with Coughing, Other - Gastrointestinal Gastrointestinal: absent: As Per HPI, Abdominal Pain, Belching, Bloating, Change in Bowel Habits, Change in Stool Character, Coffee Ground Emesis, Constipation, Cramping, Diarrhea, Dyspepsia, Dysphagia, Early Satiety, Excessive Flatus, Fecal Incontinence, Heartburn, Hematemesis, Hematochezia, Loose Stools, Melena, Nausea, Odynophagia, Temesmus, Vomiting, Other - Genitourinary Genitourinary: absent: As Per HPI, Change in Urinary Stream, Difficulty Urinating, Dysuria, Flank Pain, Hematuria, Pyuria, Nocturia, Urinary Incontinence, Urinary Frequency, Urinary Hesitance, Urinary Urgency, Voiding Freq/Small Amts, Freq UTI, Hx Renal/Bladder Calculi, Hx /Renal Surgery, Bladder Distension, Other - Reproductive: Female Reproductive:Female: absent: As Per HPI, Amenorrhea, Amenorrhea/ Control, Currently Menstual, Cycle <21 Days, Cycle >35 Days, Cycle Variable, Menses 1-7 Days, Menses >/= 8 Days, Menses Variable, Cycle > 4 Weeks Between, No Menses for 6 Months, Heavy Menses, Light Menses, Normal Menses, Spotting Between Cycles , S/P Hysterectomy, Menopausal, Post Menopausal, Premenarche, Abnormal Vaginal Bleeding, Dysmenorrhea, Dyspareunia, Genital Lesions, Genital Pruritis, Pelvic Pain, Prolapse Symptoms, Sexual Dysfunction, Vaginal Discharge, Vaginal Dryness , Vaginal Odor, Vaginal Pruritis, Other - Menstruation Menstruation: absent: As Per HPI, Amenorrhea, Amenorrhea/ Control, Currently Menstual, Cycle <21 Days, Cycle >35 Days, Cycle Variable, Menses 1-7 Days, Menses >/= 8 Days, Menses Variable, Cycle > 4 Weeks Between, No Menses for 6 Months, Heavy Menses, Light Menses, Normal Menses, Spotting Between Cycles , S/P Hysterectomy, Menopausal, Post Menopausal, Premenarche, Abnormal Vaginal Bleeding, Dysmenorrhea, Other - Musculoskeletal Musculoskeletal: As Per HPI - Integumentary Integumentary: As Per HPI - Neurological Neurological: absent: As Per HPI, Abnormal Gait, Abnormal Hearing, Abnormal Movements, Abnormal Speech, Behavioral Changes, Burning Sensations, Confusion, Convulsions, Disequilibrium, Dizziness, Numbness, Focal Weakness, Frequent Falls , Headaches, Lack of Coordination, Loss of Vision, Memory Loss, Paresthesias, Radicular Pain, Restless Legs, Sensory Deficit, Syncope, Tingling, Tremor, Vertigo, Weakness, Other Visual Disturbances, Other - Psychiatric Psychiatric: absent: As Per HPI, Abnormal Sleep Pattern, Anhedonia, Anxiety, Auditory Hallucinations, Behavioral Changes, Change in Appetite, Change in Libido, Confusion, Depression, Difficulty Concentrating, Hallucinations, Homicidal Ideation, Hopelessness, Irritability, Memory Loss, Mood Swings, Panic Attacks, Paranoia, Suicidal Ideation, Visual Hallucinations, Tactile Hallucinations, Other - Endocrine Endocrine: absent: As Per HPI, Change in Body Appearance, Change in Libido, Cold Intolorance, Deepening of Voice, Excessive Sweating, Fatigue, Flushing, Heat Intolorance, Increase in Ring/Shoe/Hat Size, Palpitations, Polydipsia, Polyphagia, Polyuria, Other Past Patient History - Infectious Disease Hx of Infectious Diseases: None - Past Medical History & Family History Past Medical History?: Yes - Past Social History Smoking Status: Heavy Smoker > 10 Cigarettes Daily - CARDIAC Hx Cardiac Disorders: No Hx Hypertension: No - PULMONARY Hx Respiratory Disorders: No Hx Tuberculosis: Yes (patient reports being prone for testing positive for TB) Other/Comment: "Never had TB" as per Patient - NEUROLOGICAL Hx Neurological Disorder: Yes Hx Seizures: Yes (" from alcohol withdrawal" as per Patient) - HEENT Hx HEENT Problems: No - RENAL Hx Chronic Kidney Disease: No - ENDOCRINE/METABOLIC Hx Endocrine Disorders: No - HEMATOLOGICAL/ONCOLOGICAL Hx Blood Disorders: Yes Hx Hepatitis C: Yes (Hep C+) Hx Human Immunodeficiency Virus (HIV): No - INTEGUMENTARY Hx Dermatological Problems: No - MUSCULOSKELETAL/RHEUMATOLOGICAL Hx Musculoskeletal Disorders: No Hx Falls: No - GASTROINTESTINAL Hx Gastrointestinal Disorders: No - GENITOURINARY/GYNECOLOGICAL Hx Genitourinary Disorders: Yes Hx Sexually Transmitted Disorders: No Hx Urinary Tract Infection: Yes (Currently, started on Macrobid) - PSYCHIATRIC Hx Substance Use: Yes - SURGICAL HISTORY Hx Surgeries: Yes Other/Comment: left knee surgery in 2000 - ANESTHESIA Hx Anesthesia: Yes Hx Anesthesia Reactions: No Hx Malignant Hyperthermia: No Has any member of the family had a problem w/ anesthesia?: No Meds Allergies/Adverse Reactions: Allergies Allergy/AdvReac Type Severity Reaction Status Date / Time shellfish derived Allergy Verified 06/23/17 20:36 SEAFOOD Allergy Uncoded 06/23/17 20:36 - Medications Medications: Current Medications Al Hydrox/Mg Hydrox/Simethicone (Maalox 30 Ml) 30 ml PO TID PRN PRN Reason: Indigestion / Heartburn Last Admin: 06/26/17 09:47 Dose: 30 ml Buprenorphine HCl (Subutex) 4 mg SL DAILY [facility] PRN Reason: Taper Stop: 06/30/17 09:59 Last Admin: 06/27/17 09:13 Dose: 4 mg Clonidine HCl (Catapres) 0.1 mg PO Q8 PRN PRN Reason: COWS Score More or Equal to 5 Last Admin: 06/27/17 11:05 Dose: 0.1 mg Diazepam (Valium) 5 mg PO ONCE ONE Stop: 06/28/17 09:01 Folic Acid (Folic Acid) 1 mg PO DAILY [facility] Last Admin: 06/27/17 09:13 Dose: 1 mg Gabapentin (Neurontin) 300 mg PO TID [facility] Last Admin: 06/27/17 13:57 Dose: 300 mg Ciprofloxacin (Cipro 400mg/200ml Dsw) 400 mg in 200 mls @ 200 mls/hr IVPB Q12H [facility] Last Admin: 06/27/17 05:25 Dose: 200 mls/hr Vancomycin/Sodium Chloride (Vancomycin 1 Gm/Ns 200 Ml) 1 gm in 200 mls @ 133.333 mls/hr IVPB Q24H [facility] Stop: 06/30/17 20:01 Last Admin: 06/26/17 20:00 Dose: 133.333 mls/hr Ketorolac Tromethamine (Toradol) 30 mg IVP Q6 PRN PRN Reason: Pain, severe (8-10) Last Admin: 06/27/17 13:57 Dose: 30 mg Loperamide HCl (Imodium) 2 mg PO Q8 PRN PRN Reason: Diarrhea Lorazepam (Ativan) 1 mg PO Q6H PRN PRN Reason: Symptoms of alcohol withdrawl Last Admin: 06/27/17 16:34 Dose: 1 mg Multivitamins (Hexavitamin) 1 tab PO DAILY [facility] Last Admin: 06/27/17 09:12 Dose: 1 tab Nicotine (Nicoderm Cq) 1 patch TD DAILY [facility] Last Admin: 06/27/17 09:15 Dose: 1 patch Ondansetron HCl (Zofran Tab) 4 mg PO Q8 PRN PRN Reason: Nausea/Vomiting Pantoprazole Sodium (Protonix Ec Tab) 20 mg PO DAILY [facility] Last Admin: 06/27/17 09:15 Dose: 20 mg Quetiapine Fumarate (Seroquel) 50 mg PO HS [facility] Last Admin: 06/26/17 22:12 Dose: 50 mg Saccharomyces Boulardii (Florastor) 250 mg PO BID [facility] Last Admin: 06/27/17 09:14 Dose: 250 mg Thiamine HCl (Vitamin B1 Tab) 100 mg PO DAILY [facility] Last Admin: 06/27/17 09:13 Dose: 100 mg Trazodone HCl (Desyrel) 100 mg PO HS PRN PRN Reason: Insomnia Last Admin: 06/26/17 22:11 Dose: 100 mg Physical Exam - Constitutional Appears: Non-toxic, Chronically Ill - Head Exam Head Exam: NORMOCEPHALIC - Eye Exam Eye Exam: PERRL. absent: Scleral icterus - ENT Exam ENT Exam: Mucous Membranes Dry - Neck Exam Neck exam: Negative for: Lymphadenopathy - Respiratory Exam Respiratory Exam: Decreased Breath Sounds, Clear to Auscultation Bilateral - Cardiovascular Exam Cardiovascular Exam: REGULAR RHYTHM, +S1, +S2. absent: Systolic Murmur - GI/Abdominal Exam GI & Abdominal Exam: Diminished Bowel Sounds, Soft - Rectal Exam Rectal Exam: Deferred - Exam Exam: NORMAL INSPECTION - Extremities Exam Extremities exam: Positive for: pedal pulses present. Negative for: calf tenderness, pedal edema, tenderness - Back Exam Back exam: absent: CVA tenderness (L), CVA tenderness (R), paraspinal tenderness - Neurological Exam Neurological exam: Alert, CN II-XII Intact, Oriented x3, Reflexes Normal - Psychiatric Exam Psychiatric exam: Normal Mood - Skin Skin Exam: Dry Additional comments: swelling/ redness volar aspect right wrist w/o fluctuance Results - Vital Signs Recent Vital Signs: Last Vital Signs Temp 98.3 F 06/27/17 15:15 Pulse 88 06/27/17 15:15 Resp 20 06/27/17 15:15 BP 108/70 06/27/17 15:15 Pulse Ox 98 06/27/17 15:15 - Labs Result Diagrams: 06/27/17 07:05 06/27/17 07:05 Labs: Laboratory Results - last 24 hr 06/27/17 06/27/17 07:05 07:05 WBC 6.5 RBC 2.99 L Hgb 9.7 L Hct 28.4 L MCV 94.9 MCH 32.5 H MCHC 34.2 RDW 12.6 Plt Count 248 MPV 8.8 Neut % (Auto) 38.1 L Lymph % (Auto) 46.2 H [place] % (Auto) 8.8 Eos % (Auto) 6.1 H Baso % (Auto) 0.8 Neut # (Auto) 2.5 Lymph # (Auto) 3.0 [place] # (Auto) 0.6 Eos # (Auto) 0.4 Baso # (Auto) 0.0 Sodium 138 Potassium 4.1 Chloride 103 Carbon Dioxide 26 Anion Gap 13 BUN 16 Creatinine 0.7 Est GFR ( Amer) > 60 Est GFR (Non-Af Amer) > 60 Random Glucose 104 Calcium 8.1 L Phosphorus 5.1 H Magnesium 2.0 Total Bilirubin 0.3 AST 32 ALT 44 Alkaline Phosphatase 50 Total Protein 5.9 L Albumin 3.0 L Globulin 2.8 Albumin/Globulin Ratio 1.1 Assessment & Plan (1) Cellulitis of right hand Status: Acute (2) Drug abuse Status: Acute - Assessment and Plan (Free Text) Assessment: check Hep c viral load- needs out pt follow up for this cont iv antibiotics- no drainage at present
[2017-06-27] MEDS: Vancomycin 1 gm/NS 200 ml 1 GM/200 ML BAG IVPB SCH (18:09)
[2017-06-28] MEDS: Ciprofloxacin 400mg/200ml D5W 400 MG/200 ML BAG IVPB SCH ×2 (05:19→18:33)
[2017-06-28] MEDS: Vancomycin 1 gm/NS 200 ml 1 GM/200 ML BAG IVPB SCH ×3 (06:14→19:21)
[2017-06-28 07:30] LABS: BASO % 0.2 % (0.0-2.0); EOS # 0.1 K/uL (0.0-0.7); EOS % 0.5 % (0.0-4.0); HEMOGLOBIN 9.6 g/dL (11.0-16.0); LYMPH # 2.9 K/uL (1.0-4.3); LYMPH % 22.7 % (20.0-40.0); MEAN CELL VOLUME 94.7 fL (81.0-99.0); MEAN CORPUSCULAR HEMOGLOBIN 32.7 pg (27.0-31.0); MEAN CORPUSCULAR HGB CONC 34.5 g/dL (33.0-37.0); MEAN PLATELET VOLUME 9.1 fL (7.2-11.7); NEUT # 8.8 K/uL (1.8-7.0); NEUT % 68.6 % (50.0-75.0); RBC 2.94 Mil/uL (3.80-5.20); RED CELL DISTRIBUTION WIDTH 12.8 % (11.5-14.5)
[2017-06-28 07:32] LABS: WHITE BLOOD COUNT 12.8 K/uL (4.8-10.8)
[2017-06-28 07:47] LABS: ALB/GLOB RATIO 1.2 (1.0-2.1); ALBUMIN 3.3 g/dL (3.5-5.0); ALT/SGPT 36 U/L (9-52); AST/SGOT 34 U/L (14-36); BLOOD UREA NITROGEN 11 mg/dL (7-17); CALCIUM 8.6 mg/dl (8.6-10.4); GFR AFRICAN-AMERICAN > 60; GFR NON-AFRICAN AMERICAN > 60; MAGNESIUM 2.1 mg/dL (1.6-2.3)
[2017-06-28] MEDS: Multiple Vitamins Tab PO SCH (09:09)
[2017-06-28] MEDS: Buprenorphine Hydrochloride 2 mg SL SCH (09:10)
[2017-06-28] MEDS: Saccharomyces Boulardi 250 mg Cap PO SCH ×2 (09:12→18:34)
[2017-06-28] MEDS: Pantoprazole 20 mg EC Tab PO SCH (09:12)
--- NOTE | 2017-06-28 11:02 | CP.PCM.PN ---
<Bill Watts E - Last Filed: 06/28/17 17:51> Subjective - Date & Time of Evaluation Date of Evaluation: 06/28/17 Time of Evaluation: 07:40 - Subjective Subjective: Medicine progress note ( Dr. Scott Gibson's service) Patient was seen and examined at bedside. Patient reports that she is doing okay. Patient states that she feels as if she is going through substance withdrawal. Patient denies chest pain, SOB, palpitations, fever, chills, nausea , vomiting, abdominal pain, diarrhea and diaphoresis. Patient had complaints of left foot edema. Patient's sister, Marjorie visited patient today and patient gave request for her health information to be shared with her sister. Objective - Vital Signs/Intake and Output Vital Signs (last 24 hours): Temp Pulse Resp BP Pulse Ox 98.3 F 88 20 114/70 95 06/28/17 07:52 06/28/17 07:52 06/28/17 07:52 06/28/17 07:52 06/28/17 07:52 Intake and Output: 06/28/17 06/28/17 06:59 18:59 Intake Total 800 Balance 800 - Medications Medications: Current Medications Al Hydrox/Mg Hydrox/Simethicone (Maalox 30 Ml) 30 ml PO TID PRN PRN Reason: Indigestion / Heartburn Last Admin: 06/26/17 09:47 Dose: 30 ml Buprenorphine HCl (Subutex) 2 mg SL DAILY [facility] PRN Reason: Taper Stop: 06/30/17 09:59 Last Admin: 06/28/17 09:10 Dose: 2 mg Clonidine HCl (Catapres) 0.1 mg PO Q8 PRN PRN Reason: COWS Score More or Equal to 5 Last Admin: 06/27/17 11:05 Dose: 0.1 mg Folic Acid (Folic Acid) 1 mg PO DAILY [facility] Last Admin: 06/28/17 09:09 Dose: 1 mg Gabapentin (Neurontin) 300 mg PO TID [facility] Last Admin: 06/28/17 09:09 Dose: 300 mg Ciprofloxacin (Cipro 400mg/200ml Dsw) 400 mg in 200 mls @ 200 mls/hr IVPB Q12H [facility] Last Admin: 06/28/17 05:19 Dose: 200 mls/hr Vancomycin/Sodium Chloride (Vancomycin 1 Gm/Ns 200 Ml) 1 gm in 200 mls @ 166.6 mls/hr IVPB Q12H [facility] Stop: 07/02/17 18:31 Last Admin: 06/28/17 06:14 Dose: 166.6 mls/hr Ketorolac Tromethamine (Toradol) 15 mg IVP Q6 PRN PRN Reason: Pain, moderate (4-7) Ketorolac Tromethamine (Toradol) 30 mg IVP Q6 PRN PRN Reason: Pain, severe (8-10) Loperamide HCl (Imodium) 2 mg PO Q8 PRN PRN Reason: Diarrhea Lorazepam (Ativan) 1 mg PO Q6H PRN PRN Reason: Symptoms of alcohol withdrawl Last Admin: 06/28/17 06:07 Dose: 1 mg Multivitamins (Hexavitamin) 1 tab PO DAILY [facility] Last Admin: 06/28/17 09:09 Dose: 1 tab Nicotine (Nicoderm Cq) 1 patch TD DAILY [facility] Last Admin: 06/28/17 09:12 Dose: 1 patch Ondansetron HCl (Zofran Tab) 4 mg PO Q8 PRN PRN Reason: Nausea/Vomiting Pantoprazole Sodium (Protonix Ec Tab) 20 mg PO DAILY [facility] Last Admin: 06/28/17 09:12 Dose: 20 mg Quetiapine Fumarate (Seroquel) 50 mg PO HS [facility] Last Admin: 06/27/17 22:14 Dose: 50 mg Saccharomyces Boulardii (Florastor) 250 mg PO BID [facility] Last Admin: 06/28/17 09:12 Dose: 250 mg Thiamine HCl (Vitamin B1 Tab) 100 mg PO DAILY [facility] Last Admin: 06/28/17 09:09 Dose: 100 mg Trazodone HCl (Desyrel) 100 mg PO HS PRN PRN Reason: Insomnia Last Admin: 06/27/17 22:25 Dose: 100 mg - Labs Labs: 06/28/17 07:11 06/28/17 07:11 PT 10.0 SECONDS (9.7-12.2) 06/26/17 11:54 INR 0.9 06/26/17 11:54 - Constitutional Appears: Well, No Acute Distress - Head Exam Head Exam: ATRAUMATIC, NORMAL INSPECTION - Eye Exam Eye Exam: EOMI - ENT Exam ENT Exam: Mucous Membranes Moist - Respiratory Exam Respiratory Exam: NORMAL BREATHING PATTERN - Cardiovascular Exam Cardiovascular Exam: REGULAR RHYTHM, +S1, +S2 Additional comments: Noted Systolic ejection murmur by Dr. Konstantin Gibson on Exam - GI/Abdominal Exam GI & Abdominal Exam: Soft, Normal Bowel Sounds. absent: Firm, Guarding, Rigid, Tenderness, Rebound - Extremities Exam Extremities Exam: absent: Calf Tenderness, Pedal Edema, Tenderness Additional comments: Left foot swelling - Neurological Exam Neurological Exam: Alert, Awake, Oriented x3 - Psychiatric Exam Psychiatric exam: Anxious - Skin Skin Exam: Normal Color Assessment and Plan (1) Cellulitis of right hand Assessment & Plan: Hand Surgery, Dr. Mullen * As per surgery, no surgical intervention. Recommendation for one compresses Q2H and IV antibiotics; conservative management Labs: * Leukocytosis resolving - Elevated on 06/28/17 secondary to solumedrol dose given on 06/27/18 - will continue to monitor with am labs Imaging: Right US (06/24/17): Tenosynovitis, infectious or noninfectious. Clinical correlation is needed. Soft tissue edema, possibly cellulitis. Clinical correlation is needed. F/u MRI, r/o osteomyeliti s Medications: * Cipro 400mg IV Q12H (start 06/25/17) * Vanco 1gm IV daily (start 06/25/17); F/U van trough for 06/28/17 * Patient completed Clindamycin 300mg PO Q 6H for one day * Patient had completed Macrobid 100mg PO bid for two days * Toradol 15mg Q6H PRN ( Moderate pain) * Toradol 30mg Q6H PRN (Severe pain) * Warm compresses Q2H as per surgery recommendation * Florastor 250mg PO BID Status: Acute (2) Tobacco abuse Assessment & Plan: Nicotine 21mg/24 hr transdermal patch Status: Acute (3) UTI (urinary tract infection) Assessment & Plan: UA: 1+ protein, 2+ leukocyte esterase, 9 WBC, 5 RBC, few bacteria UC: Gram negative DESTINY (<10,000 CFU) Medication: * Start Cipro 400mg IV Q12H (active since 06/25/17) * Patient had completed Macrobid 100mg PO bid for two days Status: Acute (4) Drug abuse Assessment & Plan: Psychiatry, Dr. Kumar---> On board * UDS: +opiates, cocaine, barbiturates ology screen: +opiates, cocaine, barbiturates * Management as per psychiatry * Subtex detox * Gabapentin for augmentation * Seroquel 50mg PO HS and Trazadone 50mg PO HS for sleep Status: Acute (5) Hypokalemia Assessment & Plan: Resolved Continue to monitor with labs Status: Acute (6) History of hepatitis C Assessment & Plan: * Hepatitis C Reactive * HIV 1/2: negative * F/u Hep C viral count Status: Acute (7) Systolic ejection murmur Assessment & Plan: Noted on exam by Dr. Konstantin gibson on Exam Plans for f/u echocardiogram, R/o endocarditis Status: Acute (8) Anemia Assessment & Plan: Labs: * reticulocyte count:1.8 F * Ferritin: 63.9 * TIBC: 260 * Iron: 69 * %iron saturation: 27 * Folate: 12.3 * [id number] Management: Continue to Monitor H/H Status: Acute (9) Prophylactic measure Assessment & Plan: * GI: Protonix 20mg PO daily * DVT: Ambulates, RISK: 0 Status: Acute <Konstantin Gibson - Last Filed: 06/28/17 18:26> Objective - Vital Signs/Intake and Output Vital Signs (last 24 hours): Temp Pulse Resp BP Pulse Ox 97 F L 69 20 112/72 97 06/28/17 16:00 06/28/17 16:00 06/28/17 16:00 06/28/17 16:00 06/28/17 16:00 Intake and Output: 06/28/17 06/28/17 06:59 18:59 Intake Total 800 480 Balance 800 480 - Medications Medications: Current Medications Al Hydrox/Mg Hydrox/Simethicone (Maalox 30 Ml) 30 ml PO TID PRN PRN Reason: Indigestion / Heartburn Last Admin: 06/26/17 09:47 Dose: 30 ml Buprenorphine HCl (Subutex) 2 mg SL DAILY [facility] PRN Reason: Taper Stop: 06/30/17 09:59 Last Admin: 06/28/17 09:10 Dose: 2 mg Clonidine HCl (Catapres) 0.1 mg PO Q8 PRN PRN Reason: COWS Score More or Equal to 5 Last Admin: 02/18/18 11:05 Dose: 0.1 mg Folic Acid (Folic Acid) 1 mg PO DAILY [facility] Last Admin: 06/28/17 09:09 Dose: 1 mg Gabapentin (Neurontin) 300 mg PO TID [facility] Last Admin: 06/28/17 13:30 Dose: 300 mg Ciprofloxacin (Cipro 400mg/200ml Dsw) 400 mg in 200 mls @ 200 mls/hr IVPB Q12H [facility] Last Admin: 06/28/17 05:19 Dose: 200 mls/hr Vancomycin/Sodium Chloride (Vancomycin 1 Gm/Ns 200 Ml) 1 gm in 200 mls @ 166.6 mls/hr IVPB Q12H [facility] Stop: 07/02/17 18:31 Last Admin: 06/28/17 06:14 Dose: 166.6 mls/hr Ketorolac Tromethamine (Toradol) 15 mg IVP Q6 PRN PRN Reason: Pain, moderate (4-7) Ketorolac Tromethamine (Toradol) 30 mg IVP Q6 PRN PRN Reason: Pain, severe (8-10) Last Admin: 06/28/17 13:30 Dose: 30 mg Loperamide HCl (Imodium) 2 mg PO Q8 PRN PRN Reason: Diarrhea Lorazepam (Ativan) 1 mg PO Q6H PRN PRN Reason: Symptoms of alcohol withdrawl Last Admin: 06/28/17 14:01 Dose: 1 mg Multivitamins (Hexavitamin) 1 tab PO DAILY [facility] Last Admin: 06/28/17 09:09 Dose: 1 tab Nicotine (Nicoderm Cq) 1 patch TD DAILY [facility] Last Admin: 06/28/17 09:12 Dose: 1 patch Ondansetron HCl (Zofran Tab) 4 mg PO Q8 PRN PRN Reason: Nausea/Vomiting Pantoprazole Sodium (Protonix Ec Tab) 20 mg PO DAILY [facility] Last Admin: 06/28/17 09:12 Dose: 20 mg Quetiapine Fumarate (Seroquel) 50 mg PO HS [facility] Last Admin: 06/27/17 22:14 Dose: 50 mg Saccharomyces Boulardii (Florastor) 250 mg PO BID [facility] Last Admin: 06/28/17 09:12 Dose: 250 mg Thiamine HCl (Vitamin B1 Tab) 100 mg PO DAILY [facility] Last Admin: 06/28/17 09:09 Dose: 100 mg Trazodone HCl (Desyrel) 100 mg PO HS PRN PRN Reason: Insomnia Last Admin: 06/27/17 22:25 Dose: 100 mg - Labs Labs: 06/28/17 07:11 06/28/17 07:11 PT 10.0 SECONDS (9.7-12.2) 06/26/17 11:54 INR 0.9 06/26/17 11:54 Attending/Attestation - Attestation I have personally seen and examined this patient.: Yes I have fully participated in the care of the patient.: Yes I have reviewed all pertinent clinical information, including history, physical exam and plan: Yes Notes (Text): 06/28/17 18:16 Patient was seen and examined at 10:15 AM 06/28/17 Bed 350 A Exam, assessment and plan were gone over with the resident. Also on ROS: Pain in anterior lower portion of Right Wrist if pressed Bilateral Leg Edema Exam: General: AAOX3, NAD HEENT: NCA, EOMI, PERRLA, NO cervical/supraclavicular/submandibular lymphadenopathy, NO pharyngeal erythema/exudate, Nasal Turbinates are nonerythematous/nonedematous, Oral Mucosa is moist Cardio: NS1 and NS2, Systolic Ejection Murmur in all auscultatory field Resp: CTA B/L, NO R/R/W GI: BSx4, Soft, NT, NO HSM, NO guarding/rebound tenderness Ext: Pulses are strong and equal, Capillary Refill is 2 seconds, NO edema noted in the bilateral legs, Right Wrist (anterior lower portion before the hand there is a hardness that was palpated that is slightly tender to palpation and there is NO erythema or warmth noted) Neuro: CN II through XII are grossly intact Assessments: 1). Right Wrist Cellulitis/Possible Abscess F/U MRI Wrist report and there is an abscess then contact Hand Surgery Dr. Mullen Vancomycin Ciprofloxacin Toradol PRN Pain 2). Hx Tobacco Use Nicotine TD 3). Dysuria Secondary to UTI Urine Culture 06/24/17 showed Gram Negative Rods: F/U Sensitivities Blood Culture 06/24/17 is negative to date Ciprofloxacin 4). Heroin Abuse Subutex taper with last dose on 06/29/17 Clonodine PRN 5) Hypokalemia Resolved 6). Anemia Stable HgB/Hct 7). Leukocytosis Dose of Solumedrol given by Medicine Team on 06/27/17 for the Tensynovitis seen on Right Wrist U/S 06/24/17. Monitor 8). Systolic Ejection Murmur F/U 2D Echocardiogram 06/29/17 9). Hepatitis C Patient will need to follow up with GI through [facility] 10). Alcohol Abuse Folic Acid Lorezepam Gabapentin [facility]VI Thiamine Konstantin Gibson D.O.
--- NOTE | 2017-06-28 15:10 | CP.PCM.PN ---
Subjective - Date & Time of Evaluation Date of Evaluation: 06/28/17 Time of Evaluation: 10:00 - Subjective Subjective: slow progress iv rx tolerated well Objective - Vital Signs/Intake and Output Vital Signs (last 24 hours): Temp Pulse Resp BP Pulse Ox 98.3 F 88 20 114/70 95 06/28/17 07:52 06/28/17 07:52 06/28/17 07:52 06/28/17 07:52 06/28/17 07:52 Intake and Output: 06/28/17 06/28/17 06:59 18:59 Intake Total 800 Balance 800 - Medications Medications: Current Medications Al Hydrox/Mg Hydrox/Simethicone (Maalox 30 Ml) 30 ml PO TID PRN PRN Reason: Indigestion / Heartburn Last Admin: 06/26/17 09:47 Dose: 30 ml Buprenorphine HCl (Subutex) 2 mg SL DAILY [facility] PRN Reason: Taper Stop: 06/30/17 09:59 Last Admin: 06/28/17 09:10 Dose: 2 mg Clonidine HCl (Catapres) 0.1 mg PO Q8 PRN PRN Reason: COWS Score More or Equal to 5 Last Admin: 06/27/17 11:05 Dose: 0.1 mg Folic Acid (Folic Acid) 1 mg PO DAILY [facility] Last Admin: 06/28/17 09:09 Dose: 1 mg Gabapentin (Neurontin) 300 mg PO TID [facility] Last Admin: 06/28/17 13:30 Dose: 300 mg Ciprofloxacin (Cipro 400mg/200ml Dsw) 400 mg in 200 mls @ 200 mls/hr IVPB Q12H [facility] Last Admin: 06/28/17 05:19 Dose: 200 mls/hr Vancomycin/Sodium Chloride (Vancomycin 1 Gm/Ns 200 Ml) 1 gm in 200 mls @ 166.6 mls/hr IVPB Q12H [facility] Stop: 07/02/17 18:31 Last Admin: 06/28/17 06:14 Dose: 166.6 mls/hr Ketorolac Tromethamine (Toradol) 15 mg IVP Q6 PRN PRN Reason: Pain, moderate (4-7) Ketorolac Tromethamine (Toradol) 30 mg IVP Q6 PRN PRN Reason: Pain, severe (8-10) Last Admin: 06/28/17 13:30 Dose: 30 mg Loperamide HCl (Imodium) 2 mg PO Q8 PRN PRN Reason: Diarrhea Lorazepam (Ativan) 1 mg PO Q6H PRN PRN Reason: Symptoms of alcohol withdrawl Last Admin: 06/28/17 14:01 Dose: 1 mg Multivitamins (Hexavitamin) 1 tab PO DAILY [facility] Last Admin: 06/28/17 09:09 Dose: 1 tab Nicotine (Nicoderm Cq) 1 patch TD DAILY [facility] Last Admin: 06/28/17 09:12 Dose: 1 patch Ondansetron HCl (Zofran Tab) 4 mg PO Q8 PRN PRN Reason: Nausea/Vomiting Pantoprazole Sodium (Protonix Ec Tab) 20 mg PO DAILY [facility] Last Admin: 06/28/17 09:12 Dose: 20 mg Quetiapine Fumarate (Seroquel) 50 mg PO HS [facility] Last Admin: 06/27/17 22:14 Dose: 50 mg Saccharomyces Boulardii (Florastor) 250 mg PO BID [facility] Last Admin: 06/28/17 09:12 Dose: 250 mg Thiamine HCl (Vitamin B1 Tab) 100 mg PO DAILY [facility] Last Admin: 06/28/17 09:09 Dose: 100 mg Trazodone HCl (Desyrel) 100 mg PO HS PRN PRN Reason: Insomnia Last Admin: 06/27/17 22:25 Dose: 100 mg - Labs Labs: 06/28/17 07:11 06/28/17 07:11 PT 10.0 SECONDS (9.7-12.2) 06/26/17 11:54 INR 0.9 06/26/17 11:54 - Constitutional Appears: Non-toxic, Chronically Ill - Head Exam Head Exam: NORMOCEPHALIC - Eye Exam Eye Exam: PERRL - ENT Exam ENT Exam: Mucous Membranes Dry - Neck Exam Neck Exam: absent: Thyromegaly - Respiratory Exam Respiratory Exam: Decreased Breath Sounds - Cardiovascular Exam Cardiovascular Exam: REGULAR RHYTHM, +S1, +S2 - GI/Abdominal Exam GI & Abdominal Exam: Distended, Soft - Rectal Exam Rectal Exam: Deferred - Exam Exam: NORMAL INSPECTION Assessment and Plan (1) Cellulitis of right hand Status: Acute (2) Drug abuse Status: Acute
--- NOTE | 2017-06-28 22:33 | CARD ---
APPROVED REPORT EKG Measurement Heart [id number] <Conclusion> Normal sinus rhythm Low voltage QRS chest leads may be normal variant for sex.
[2017-06-29] MEDS: Ciprofloxacin 400mg/200ml D5W 400 MG/200 ML BAG IVPB SCH ×2 (05:31→17:15)
[2017-06-29] MEDS: Vancomycin 1 gm/NS 200 ml 1 GM/200 ML BAG IVPB SCH (06:24)
[2017-06-29 07:52] LABS: BASO # 0.1 K/uL (0.0-0.2); BASO % 0.7 % (0.0-2.0); EOS # 0.3 K/uL (0.0-0.7); EOS % 4.3 % (0.0-4.0); HEMOGLOBIN 9.7 g/dL (11.0-16.0); LYMPH # 3.3 K/uL (1.0-4.3); LYMPH % 44.6 % (20.0-40.0); MEAN CELL VOLUME 94.8 fL (81.0-99.0); MEAN CORPUSCULAR HGB CONC 34.8 g/dL (33.0-37.0); MEAN PLATELET VOLUME 8.9 fL (7.2-11.7); MONO # 0.5 K/uL (0.0-0.8); MONO % 6.1 % (0.0-10.0); NEUT # 3.3 K/uL (1.8-7.0); NEUT % 44.3 % (50.0-75.0); NRBC % 0.1 % (0.0-2.0); RBC 2.95 Mil/uL (3.80-5.20); RED CELL DISTRIBUTION WIDTH 12.9 % (11.5-14.5); WHITE BLOOD COUNT 7.4 K/uL (4.8-10.8)
[2017-06-29 07:53] LABS: ALB/GLOB RATIO 1.5 (1.0-2.1); ALT/SGPT 39 U/L (9-52); AST/SGOT 27 U/L (14-36); BLOOD UREA NITROGEN 14 mg/dL (7-17); CALCIUM 7.5 mg/dl (8.6-10.4); GFR AFRICAN-AMERICAN > 60; GFR NON-AFRICAN AMERICAN > 60
--- NOTE | 2017-06-29 09:37 | MRI ---
MRI right wrist History: Swelling. Evaluate for abscess. Comparison: None available. Technique: Multi-echo multiplanar sequences were performed through the right wrist without the use of intravenous contrast. Findings: Prominent soft tissue edema with increased fluid signal intensity seen at the level of the volar aspect of the distal radius involving the distal forearm extending to the wrist. This is best demonstrated on series 4, images 12 through 29. In addition, on series 4 images 15 through 18 there is an ovoid 9 millimeter fluid intensity signal foci which may represent a small abscess and or phlegmon collection. This is in adjacent proximity to the skin marker. Soft tissue reticulation as well as fluid intensity signal surrounding the palmaris longus tendon which demonstrates moderate edema and thickening throughout its course suggesting for a tenosynovitis possibly an infected tenosynovitis. Clinical correlation. Adjacent thickening of the median nerve with volar sided bowing of the flexor retinaculum suggestive for a possible carpal tunnel syndrome. Clinical correlation. The extensor tendons are preserved. Scapholunate ligament appears preserved. Lunatotriquetral ligament appears preserved. Triangular fibrocartilage appears preserved. Impression: 1. Soft tissue cellulitis with a suggestion of a small 9 millimeter abscess as described above confined to the ventral distal forearm extending to the wrist. 2. Suggestion of a possible infected tenosynovitis of the palmaris longus tendon. Clincal correlation. Additional findings as above. These findings were preliminarily reported at 6:41 p.m. on 06/28/[address] Jeremy Michele from [facility].
--- NOTE | 2017-06-29 09:51 | CP.PCM.PN ---
<KingmanNaa brownhiwot Anthony - Last Filed: 06/29/17 17:39> Subjective - Date & Time of Evaluation Date of Evaluation: 06/29/17 Time of Evaluation: 07:05 - Subjective Subjective: Medicine progress note ( Dr. Scott Gibson's service) Patient was seen and examined at bedside. Patient was resting comfortably in bed. Patient denies chest pain, SOB, palpitations, abdominal pain, fever, chills and nausea. Patient still has mild pain localized to the right anterior wrist secondary to cellulitis. Objective - Vital Signs/Intake and Output Vital Signs (last 24 hours): Temp Pulse Resp BP Pulse Ox 98 F 83 20 99/61 L 95 06/29/17 07:59 06/29/17 07:59 06/29/17 07:59 06/29/17 07:59 06/29/17 07:59 Intake and Output: 06/29/17 06/29/17 06:59 18:59 Intake Total 880 Balance 880 - Medications Medications: Current Medications Al Hydrox/Mg Hydrox/Simethicone (Maalox 30 Ml) 30 ml PO TID PRN PRN Reason: Indigestion / Heartburn Last Admin: 06/26/17 09:47 Dose: 30 ml Buprenorphine HCl (Subutex) 2 mg SL DAILY [facility] PRN Reason: Taper Stop: 06/30/17 09:59 Last Admin: 06/28/17 09:10 Dose: 2 mg Clonidine HCl (Catapres) 0.1 mg PO Q8 PRN PRN Reason: COWS Score More or Equal to 5 Last Admin: 06/27/17 11:05 Dose: 0.1 mg Folic Acid (Folic Acid) 1 mg PO DAILY [facility] Last Admin: 06/28/17 09:09 Dose: 1 mg Gabapentin (Neurontin) 300 mg PO TID [facility] Last Admin: 06/28/17 18:34 Dose: 300 mg Ciprofloxacin (Cipro 400mg/200ml Dsw) 400 mg in 200 mls @ 200 mls/hr IVPB Q12H [facility] Last Admin: 06/29/17 05:31 Dose: 200 mls/hr Vancomycin/Sodium Chloride (Vancomycin 1 Gm/Ns 200 Ml) 1 gm in 200 mls @ 166.6 mls/hr IVPB Q12H [facility] Stop: 07/02/17 18:31 Last Admin: 06/29/17 06:24 Dose: 166.6 mls/hr Ketorolac Tromethamine (Toradol) 15 mg IVP Q6 PRN PRN Reason: Pain, moderate (4-7) Ketorolac Tromethamine (Toradol) 30 mg IVP Q6 PRN PRN Reason: Pain, severe (8-10) Last Admin: 06/29/17 01:01 Dose: 30 mg Loperamide HCl (Imodium) 2 mg PO Q8 PRN PRN Reason: Diarrhea Lorazepam (Ativan) 1 mg PO Q6H PRN PRN Reason: Symptoms of alcohol withdrawl Last Admin: 06/28/17 14:01 Dose: 1 mg Multivitamins (Hexavitamin) 1 tab PO DAILY [facility] Last Admin: 06/28/17 09:09 Dose: 1 tab Nicotine (Nicoderm Cq) 1 patch TD DAILY [facility] Last Admin: 06/28/17 09:12 Dose: 1 patch Ondansetron HCl (Zofran Tab) 4 mg PO Q8 PRN PRN Reason: Nausea/Vomiting Pantoprazole Sodium (Protonix Ec Tab) 20 mg PO DAILY [facility] Last Admin: 06/28/17 09:12 Dose: 20 mg Quetiapine Fumarate (Seroquel) 50 mg PO HS [facility] Last Admin: 06/28/17 22:18 Dose: 50 mg Saccharomyces Boulardii (Florastor) 250 mg PO BID [facility] Last Admin: 06/28/17 18:34 Dose: 250 mg Thiamine HCl (Vitamin B1 Tab) 100 mg PO DAILY [facility] Last Admin: 06/28/17 09:09 Dose: 100 mg Trazodone HCl (Desyrel) 100 mg PO HS PRN PRN Reason: Insomnia Last Admin: 06/29/17 00:59 Dose: 100 mg - Labs Labs: 06/29/17 07:16 06/29/17 07:16 PT 10.0 SECONDS (9.7-12.2) 06/26/17 11:54 INR 0.9 06/26/17 11:54 - Constitutional Appears: No Acute Distress - Head Exam Head Exam: ATRAUMATIC - Eye Exam Eye Exam: EOMI, Normal appearance - ENT Exam ENT Exam: Mucous Membranes Moist - Respiratory Exam Respiratory Exam: Clear to Ausculation Bilateral, NORMAL BREATHING PATTERN. absent: Prolonged Expiratory Phase, Rhonchi, Wheezes, Respiratory Distress, Stridor - Cardiovascular Exam Cardiovascular Exam: REGULAR RHYTHM, +S1, +S2 - GI/Abdominal Exam GI & Abdominal Exam: Soft, Normal Bowel Sounds. absent: Tenderness - Extremities Exam Extremities Exam: Normal Inspection. absent: Calf Tenderness, Joint Swelling, Pedal Edema, Tenderness - Neurological Exam Neurological Exam: Alert, Awake, Oriented x3 - Psychiatric Exam Psychiatric exam: Normal Affect, Normal Mood - Skin Skin Exam: Normal Color Assessment and Plan (1) Cellulitis of right hand Assessment & Plan: Hand Surgery, Dr. Mullen * As per surgery, no surgical intervention. * New MRI findings discussed with surgical team, no surgical intervention at this time. Recommendation to apply warm compresses every 4 hours for 30mins and to continue IV antibiotics; conservative management. Labs: * Leukocytosis resolving - Elevated on 06/28/17 secondary to solumedrol dose given on 06/27/18 - will continue to monitor with am labs Imaging: Right US (06/24/17): Tenosynovitis, infectious or noninfectious. Clinical correlation is needed. Soft tissue edema, possibly cellulitis. Clinical correlation is needed. MRI (06/28/17): Soft tissue cellulitis with a suggestion of a small 9 millimeter abscess as described above confined to the ventral distal forearm extending to the wrist. Suggestion of a possible infected tenosynovitis of the palmaris longus tendon. Clincal correlation. Medications: * Cipro 400mg IV Q12H (start 06/25/17) * Vanco 1gm IV daily (start 06/25/17); Vanco trough not within the range of 15- 20 for deep tissue infection, therefore Vanco 2,000mg IV Q12H (Started 06/29/17) * Patient completed Clindamycin 300mg PO Q 6H for one day * Patient had completed Macrobid 100mg PO bid for two days * Toradol 15mg Q6H PRN ( Moderate pain) * Toradol 30mg Q6H PRN (Severe pain) * Warm compresses Q2H as per surgery recommendation * Florastor 250mg PO BID Status: Acute (2) Tobacco abuse Assessment & Plan: Nicotine 21mg/24 hr transdermal patch Status: Acute (3) UTI (urinary tract infection) Assessment & Plan: UA: 1+ protein, 2+ leukocyte esterase, 9 WBC, 5 RBC, few bacteria UC: Gram negative DESTINY (<10,000 CFU) Medication: * Start Cipro 400mg IV Q12H (active since 06/25/17) * Patient had completed Macrobid 100mg PO bid for two days Status: Acute (4) Drug abuse Assessment & Plan: Psychiatry, Dr. Kumar---> On board * UDS: +opiates, cocaine, barbiturates ology screen: +opiates, cocaine, barbiturates * Management as per psychiatry * Subtex detox * Gabapentin for augmentation * Seroquel 50mg PO HS and Trazadone 50mg PO HS for sleep Status: Acute (5) Hypokalemia Assessment & Plan: Resolved Continue to monitor with labs Status: Acute (6) History of hepatitis C Assessment & Plan: * Hepatitis C Reactive * HIV 1/2: negative * F/u Hep C viral count Status: Acute (7) Systolic ejection murmur Assessment & Plan: Noted on exam by Dr. Konstantin gibson on Exam Echocardiogram: left ventricle systolic function is normal, EF (55-60%), left ventricular diastolic function is normal, mild aortic regurgitation and mild pulmonary hypertension Status: Acute (8) Anemia Assessment & Plan: Labs: * reticulocyte count:1.8 F * Ferritin: 63.9 * TIBC: 260 * Iron: 69 * %iron saturation: 27 * Folate: 12.3 * [id number] Management: Continue to Monitor H/H Status: Acute (9) Prophylactic measure Assessment & Plan: * GI: Protonix 20mg PO daily * DVT: Ambulates, RISK: 0 Status: Acute <Konstantin Gibson - Last Filed: 06/29/17 19:03> Objective - Vital Signs/Intake and Output Vital Signs (last 24 hours): Temp Pulse Resp BP Pulse Ox 97.6 F 92 H 20 99/66 L 97 06/29/17 15:00 06/29/17 15:00 06/29/17 15:00 06/29/17 15:00 06/29/17 15:00 Intake and Output: 06/29/17 06/29/17 06:59 18:59 Intake Total 880 500 Balance 880 500 - Medications Medications: Current Medications Al Hydrox/Mg Hydrox/Simethicone (Maalox 30 Ml) 30 ml PO TID PRN PRN Reason: Indigestion / Heartburn Last Admin: 06/26/17 09:47 Dose: 30 ml Buprenorphine HCl (Subutex) 2 mg SL DAILY [facility] PRN Reason: Taper Stop: 06/30/17 09:59 Last Admin: 06/29/17 10:03 Dose: 2 mg Clonidine HCl (Catapres) 0.1 mg PO Q8 PRN PRN Reason: COWS Score More or Equal to 5 Last Admin: 06/27/17 11:05 Dose: 0.1 mg Folic Acid (Folic Acid) 1 mg PO DAILY [facility] Last Admin: 06/29/17 10:02 Dose: 1 mg Gabapentin (Neurontin) 300 mg PO TID [facility] Last Admin: 06/29/17 17:16 Dose: 300 mg Ciprofloxacin (Cipro 400mg/200ml Dsw) 400 mg in 200 mls @ 200 mls/hr IVPB Q12H [facility] Last Admin: 06/29/17 17:15 Dose: 200 mls/hr Vancomycin HCl 2,000 mg/ (Sodium Chloride) 500 mls @ 166.6 mls/hr IVPB Q12H [facility] Ketorolac Tromethamine (Toradol) 15 mg IVP Q6 PRN PRN Reason: Pain, moderate (4-7) Ketorolac Tromethamine (Toradol) 30 mg IVP Q6 PRN PRN Reason: Pain, severe (8-10) Last Admin: 06/29/17 17:24 Dose: 30 mg Loperamide HCl (Imodium) 2 mg PO Q8 PRN PRN Reason: Diarrhea Lorazepam (Ativan) 1 mg PO Q6H PRN PRN Reason: Symptoms of alcohol withdrawl Last Admin: 06/28/17 14:01 Dose: 1 mg Multivitamins (Hexavitamin) 1 tab PO DAILY [facility] Last Admin: 06/29/17 10:01 Dose: 1 tab Nicotine (Nicoderm Cq) 1 patch TD DAILY [facility] Last Admin: 06/29/17 10:02 Dose: 1 patch Ondansetron HCl (Zofran Tab) 4 mg PO Q8 PRN PRN Reason: Nausea/Vomiting Pantoprazole Sodium (Protonix Ec Tab) 20 mg PO DAILY [facility] Last Admin: 06/29/17 10:02 Dose: 20 mg Quetiapine Fumarate (Seroquel) 50 mg PO HS [facility] Last Admin: 06/28/17 22:18 Dose: 50 mg Saccharomyces Boulardii (Florastor) 250 mg PO BID [facility] Last Admin: 06/29/17 17:16 Dose: 250 mg Thiamine HCl (Vitamin B1 Tab) 100 mg PO DAILY [facility] Last Admin: 06/29/17 10:02 Dose: 100 mg Trazodone HCl (Desyrel) 100 mg PO HS PRN PRN Reason: Insomnia Last Admin: 06/29/17 00:59 Dose: 100 mg - Labs Labs: 06/29/17 07:16 06/29/17 07:16 PT 10.0 SECONDS (9.7-12.2) 06/26/17 11:54 INR 0.9 06/26/17 11:54 Attending/Attestation - Attestation I have personally seen and examined this patient.: Yes I have fully participated in the care of the patient.: Yes I have reviewed all pertinent clinical information, including history, physical exam and plan: Yes Notes (Text): 06/29/17 18:54 Patient was seen and examined at 3:45 AM 06/29/17 Bed 350 A Exam, assessment and plan were gone over with the resident. Also on ROS: Pain in anterior lower portion of Right Wrist if pressed, area of hardness has decreased in size Bilateral Leg Edema Exam: General: AAOX3, NAD HEENT: NCA, EOMI, PERRLA, NO cervical/supraclavicular/submandibular lymphadenopathy, NO pharyngeal erythema/exudate, Nasal Turbinates are nonerythematous/nonedematous, Oral Mucosa is moist Cardio: NS1 and NS2, Systolic Ejection Murmur in all auscultatory field Resp: CTA B/L, NO R/R/W GI: BSx4, Soft, NT, NO HSM, NO guarding/rebound tenderness Ext: Pulses are strong and equal, Capillary Refill is 2 seconds, NO edema noted in the bilateral legs, Right Wrist (anterior lower portion before the hand there is a hardness that was palpated that is slightly tender to palpation and there is NO erythema or warmth noted) Neuro: CN II through XII are grossly intact Assessments: 1). Right Wrist Cellulitis/Possible Abscess MRI Wrist shows 9 mm area of phlegmon vs abscess: spoke with surgical assistant certified and for now NO surgery. Continue IV antibiotics and warm compress Vancomycin dose increased to 2 gm IV Q12H starting at 6:30 PM and follow up Vancomycin Trough at 6 AM 07/01/17 Ciprofloxacin Toradol PRN Pain 2). Hx Tobacco Use Nicotine TD 3). Dysuria Secondary to UTI Urine Culture 06/24/17 showed Gram Negative Rods: F/U Sensitivities Blood Culture 06/24/17 is negative to date Ciprofloxacin 4). Heroin Abuse Subutex taper with last dose on 06/29/17 Clonodine PRN 5) Hypokalemia Resolved 6). Anemia Stable HgB/Hct 7). Leukocytosis Dose of Solumedrol given by Medicine Team on 06/27/17 for the Tensynovitis seen on Right Wrist U/S 06/24/17. Monitor 8). Systolic Ejection Murmur 2D Echocardiogram 06/29/17 did not show any evidence of endocarditis or vegetation. As blood culture is negative to date, there are no fevers, HOLD off on RENETTA 9). Hepatitis C Patient will need to follow up with GI through [facility] 10). Alcohol Abuse Folic Acid Lorezepam Gabapentin MVI Thiamine Konstantin Gibson D.O.
[2017-06-29] MEDS: Multiple Vitamins Tab PO SCH (10:01)
[2017-06-29] MEDS: Pantoprazole 20 mg EC Tab PO SCH (10:02)
[2017-06-29] MEDS: Saccharomyces Boulardi 250 mg Cap PO SCH ×2 (10:02→17:16)
[2017-06-29] MEDS: Buprenorphine Hydrochloride 2 mg SL SCH (10:03)
--- NOTE | 2017-06-29 10:12 | PCM.PYCHPN ---
Psychiatric Progress Note - Psychiatric Progress Note Patient seen today, length of contact: 15 min Patient Chief Complaint: "I have pain" Problems Identified/Issues Discussed: The pt is seen, chart reviewed, case discussed with staff. Support given, CBT and UT used briefly No new symptoms reported, improving slowly and needs more time No SEs from medications, risks discussed. After care discussed Medical Problems: Cellulitis. Med is on board - help appreciated Medication Change: Yes (detox chnages daily) Medical Record Reviewed: Yes Mental Status Examination - Cognitive Function Orientation: Person, Place, Situation, Time Memory: Intact Attention: Poor Concentration: Poor Association: WNL Fund of Knowledge: WNL - Mood Mood: Anxious - Affect Affect: Constricted - Speech Speech: Appropriate - Formal Thought Process Formal Thought Process: No Impairment - Suicidal Ideation Suicidal Ideation: No - Homicidal Ideation Homicidal Ideation: No Goal/Treatment Plan - Goal/Treatment Plan Need for Continued Stay: Discharge may exacerbated symptoms, Severe functional impairment Progress Toward Problem(s) and Goals/Treatment Plan: Subutex taper Gabapentin for augmentation and benzos, cocaine Watch benzo wdw As needed medications All risks, benefits and alternatives of the meds discussed, and the pt agreed and understood. Attend groups and activities Supportive therapy and psychoeducation UT for abstinence CBT for relapse prevention Encourage MAT Refer to rehab or IOP, and self-help groups Smoking cessation with UT Nicotine patch if needed
--- NOTE | 2017-06-29 12:30 | PCM.PYCHPN ---
Psychiatric Progress Note - Psychiatric Progress Note Patient seen today, length of contact: 16 min Patient Chief Complaint: "I am better" Problems Identified/Issues Discussed: The pt is seen, chart reviewed, case discussed with staff. Support given, SD used briefly No new symptoms reported, improving slowly and needs more time No SEs from medications, risks discussed. After care discussed - she may go to [facility] but she needs to be medically cleared first. please let us know Detox ending and tag writer will sign off. Medication Change: Yes (detox ending) Medical Record Reviewed: Yes Mental Status Examination - Cognitive Function Orientation: Person, Place, Situation, Time Memory: Intact Attention: WNL Concentration: WNL Association: WNL Fund of Knowledge: WNL - Mood Mood: Anxious - Affect Affect: Constricted - Speech Speech: Appropriate - Formal Thought Process Formal Thought Process: No Impairment - Suicidal Ideation Suicidal Ideation: No - Homicidal Ideation Homicidal Ideation: No Goal/Treatment Plan - Goal/Treatment Plan Need for Continued Stay: Discharge may exacerbated symptoms, Severe functional impairment Progress Toward Problem(s) and Goals/Treatment Plan: Subutex taper ending Gabapentin for augmentation and benzos, cocaine As needed medications All risks, benefits and alternatives of the meds discussed, and the pt agreed and understood. Supportive therapy and psychoeducation SD for abstinence Encourage MAT Refer to rehab at [facility] done already they are waiting to hear Smoking cessation with SD Nicotine patch if needed
--- NOTE | 2017-06-29 13:02 | CARD ---
APPROVED REPORT EXAM: Two-dimensional and M-mode echocardiogram with Doppler and color Doppler. Other Information Quality : GoodRhythm : INDICATION Infection:Rule out subacute bacterial endocarditis Murmur HX OF DRUG ABUSE 2D DIMENSIONS IVSd0.9 (0.7-1.1cm)LVDd4.6 (3.9-5.9cm) PWd1.0 (0.7-1.1cm)LVDs2.6 (2.5-4.0cm) FS (%) 43.2 %LVEF (%)74.4 (>50%) M-Mode DIMENSIONS Left Atrium (MM)3.60 (2.5-4.0cm)Aortic Root3.01 (2.2-3.7cm) Aortic Cusp Exc.2.08 (1.5-2.0cm) Mitral Valve MV E Gctmugio793.4cm/sMV A Txbrfqmy35.0cm/sE/A ratio1.4 TDI E/Lateral E'0.0E/Medial E'0.0 Tricuspid Valve TR Peak Kjbydqca794nn/sTR Peak Gr.[id number] LEFT VENTRICLE The left ventricle is normal size. There is normal left ventricular wall thickness. Left ventricle systolic function is normal. The Ejection Fraction is 55-60%. There is normal LV segmental wall motion. The left ventricular diastolic function is normal. There is no ventricular septal defect visualized. RIGHT VENTRICLE The right ventricle is normal size. The right ventricular systolic function is normal. ATRIA The left atrium is mildly dilated. The right atrium size is normal. AORTIC VALVE The aortic valve is normal in structure. The aortic valve is trileaflet. There is mild aortic regurgitation. There is no aortic valvular stenosis. MITRAL VALVE The mitral valve leaflets are thickened. There is no evidence of mitral valve prolapse. Mitral regurgitation is mild. Transesophageal echocardiography is more specific to rule out vegetation TRICUSPID VALVE The tricuspid valve is normal in structure. There is mild tricuspid regurgitation. Right ventricular systolic pressure is estimated at 30-40 mmHg. There is mild pulmonary hypertension. PULMONIC VALVE The pulmonary valve is normal in structure. There is trace pulmonic valvular regurgitation. GREAT VESSELS The aortic root is normal in size. The ascending aorta is normal in size. The IVC is normal in size and collapses >50% with inspiration. PERICARDIAL EFFUSION There is no pericardial effusion. <Conclusion> Left ventricle systolic function is normal. The Ejection Fraction is 55-60%. The left ventricular diastolic function is normal. There is mild aortic regurgitation. Mitral regurgitation is mild. Transesophageal echocardiography is more specific to rule out vegetation There is mild pulmonary hypertension.
[2017-06-30] MEDS: Ciprofloxacin 400mg/200ml D5W 400 MG/200 ML BAG IVPB SCH ×2 (05:24→17:26)
--- NOTE | 2017-06-30 09:27 | CP.PCM.DIS ---
Provider - Provider Date of Admission: 06/23/17 23:13 Attending physician: Alejandrina Yee DO Time Spent in preparation of Discharge (in minutes): 35 Diagnosis - Discharge Diagnosis (1) Cellulitis of right hand Status: Acute (2) Tobacco abuse Status: Acute (3) UTI (urinary tract infection) Status: Acute (4) Drug abuse Status: Acute (5) Hypokalemia Status: Acute (6) History of hepatitis C Status: Acute (7) Systolic ejection murmur Status: Acute (8) Anemia Status: Acute (9) Prophylactic measure Status: Acute Hospital Course - Lab Results Lab Results: Micro Results 06/24/17 15:45 Blood-Venous Blood Culture - Final NO GROWTH AFTER 5 DAYS 06/24/17 15:45 Blood-Venous Gram Stain - Final TEST NOT PERFORMED 06/24/17 14:40 Blood-Venous Blood Culture - Final NO GROWTH AFTER 5 DAYS 06/24/17 14:40 Blood-Venous Gram Stain - Final TEST NOT PERFORMED 06/27/17 16:32 Urine Urine Culture - Final No Growth (<1,000 CFU/ML) 06/24/17 Unknown Urine Urine Culture - Final Gram Negative Sergo Most Recent Lab Values WBC 7.4 K/uL (4.8-10.8) 06/29/17 07:16 RBC 2.95 Mil/uL (3.80-5.20) L 06/29/17 07:16 Hgb 9.7 g/dL (11.0-16.0) L 06/29/17 07:16 Hct 27.9 % (34.0-47.0) L 06/29/17 07:16 MCV 94.8 fL (81.0-99.0) 06/29/17 07:16 MCH 33.0 pg (27.0-31.0) H 06/29/17 07:16 MCHC 34.8 g/dL (33.0-37.0) 06/29/17 07:16 RDW 12.9 % (11.5-14.5) 06/29/17 07:16 Plt Count 299 K/uL (130-400) 06/29/17 07:16 MPV 8.9 fL (7.2-11.7) 06/29/17 07:16 Neut % (Auto) 44.3 % (50.0-75.0) L 06/29/17 07:16 Lymph % (Auto) 44.6 % (20.0-40.0) H 06/29/17 07:16 Barber % (Auto) 6.1 % (0.0-10.0) 06/29/17 07:16 Eos % (Auto) 4.3 % (0.0-4.0) H 06/29/17 07:16 Baso % (Auto) 0.7 % (0.0-2.0) 06/29/17 07:16 Neut # (Auto) 3.3 K/uL (1.8-7.0) 06/29/17 07:16 Lymph # (Auto) 3.3 K/uL (1.0-4.3) 06/29/17 07:16 Barber # (Auto) 0.5 K/uL (0.0-0.8) 06/29/17 07:16 Eos # (Auto) 0.3 K/uL (0.0-0.7) 06/29/17 07:16 Baso # (Auto) 0.1 K/uL (0.0-0.2) 06/29/17 07:16 Neutrophils % (Manual) 80 % (50-75) H 06/23/17 21:29 Band Neutrophils % 5 % (0-2) H 06/23/17 21:29 Lymphocytes % (Manual) 9 % (20-40) L 06/23/17 21:29 Monocytes % (Manual) 6 % (0-10) 06/23/17 21:29 Platelet Estimate Normal (NORMAL) 06/23/17 21:29 Retic Count 1.8 % (0.5-1.5) H 06/26/17 10:31 PT 10.0 SECONDS (9.7-12.2) 06/26/17 11:54 INR 0.9 06/26/17 11:54 Sodium 136 mmol/L (132-148) 06/29/17 07:16 Potassium 3.6 mmol/L (3.6-5.2) 06/29/17 07:16 Chloride 101 mmol/L (98-107) 06/29/17 07:16 Carbon Dioxide 26 mmol/L (22-30) 06/29/17 07:16 Anion Gap 12 (10-20) 06/29/17 07:16 BUN 14 mg/dL (7-17) 06/29/17 07:16 Creatinine 0.6 mg/dL (0.7-1.2) L 06/29/17 07:16 Est GFR ( Amer) > 60 06/29/17 07:16 Est GFR (Non-Af Amer) > 60 06/29/17 07:16 Random Glucose 84 mg/dL (65-105) 06/29/17 07:16 Calcium 7.5 mg/dl (8.6-10.4) L 06/29/17 07:16 Phosphorus 5.3 mg/dL (2.5-4.5) H 06/29/17 07:16 Magnesium 2.0 mg/dL (1.6-2.3) 06/29/17 07:16 Iron 69 ug/dL (37-170) 06/26/17 10:15 TIBC 260 ug/dL (250-450) 06/26/17 10:15 % Saturation 27 (20-55) 06/26/17 10:15 Ferritin 63.9 ng/mL 06/26/17 10:15 Total Bilirubin < 0.1 mg/dL (0.2-1.3) L 06/29/17 07:16 AST 27 U/L (14-36) 06/29/17 07:16 ALT 39 U/L (9-52) 06/29/17 07:16 Alkaline Phosphatase 45 U/L (38-126) 06/29/17 07:16 Total Protein 5.0 g/dL (6.3-8.3) L 06/29/17 07:16 Albumin 3.0 g/dL (3.5-5.0) L 06/29/17 07:16 Globulin 2.0 gm/dL (2.2-3.9) L 06/29/17 07:16 Albumin/Globulin Ratio 1.5 (1.0-2.1) 06/29/17 07:16 Vitamin B12 553 pg/mL (239-931) 06/26/17 10:15 Folate 12.3 ng/mL 06/26/17 10:15 Urine Color Yellow (YELLOW) 06/23/17 21:29 Urine Clarity Hazy (Clear) 06/23/17 21:29 Urine pH 5.0 (5.0-8.0) 06/23/17 21:29 Ur Specific Cubero 1.018 (1.003-1.030) 06/23/17 21:29 Urine Protein 1+ mg/dL (NEGATIVE) H 06/23/17 21:29 Urine Glucose (UA) Normal mg/dL (Normal) 06/23/17 21:29 Urine Ketones Negative mg/dL (NEGATIVE) 06/23/17 21: Urine Blood Negative (NEGATIVE) 06/23/17 21: Urine Nitrate Negative (NEGATIVE) 06/23/17 21: Urine Bilirubin Negative (NEGATIVE) 06/23/17 21: Urine Urobilinogen Normal mg/dL (0.2-1.0) 06/23/17 21:29 Ur Leukocyte Esterase 2+ Stacy/uL (Negative) H 06/23/17 21:29 Urine WBC (Auto) 9 /hpf (0-5) H 06/23/17 21:29 Urine RBC (Auto) 5 /hpf (0-3) H 06/23/17 21: Ur Squamous Epith Cells 4 /hpf (0-5) 06/23/17 21:29 Urine Bacteria Few (<OCC) H 06/23/17 21: Hyaline Casts 0-2 /lpf (0-2) 06/23/17 21:29 Urine HCG, Qual Negative (NEGATIVE) 06/23/17 21: Vancomycin Trough 5.9 ug/mL (5.0-10.0) 06/28/17 19:37 Urine Opiates Screen Positive (NEGATIVE) H 06/23/17 21:29 Urine Methadone Screen Negative (NEGATIVE) 06/23/17 21:29 Ur Barbiturates Screen Positive (NEGATIVE) H 06/23/17 21:29 Ur Phencyclidine Scrn Negative (NEGATIVE) 06/23/17 21:29 Ur Amphetamines Screen Negative (NEGATIVE) 06/23/17 21:29 U Benzodiazepines Scrn Negative (NEGATIVE) 06/23/17 21: U Oth Cocaine Metabols Positive (NEGATIVE) H 06/23/17 21:29 U Cannabinoids Screen Negative (NEGATIVE) 06/23/17 21:29 Alcohol, Quantitative < 10 mg/dl (0-10) 06/23/17 21:29 Hepatitis A IgM Ab Negative (NEGATIVE) 06/26/17 07:09 Hep Bs Antigen Negative (NEGATIVE) 06/26/17 07:09 Hep B Core IgM Ab Negative (NEGATIVE) 06/26/17 07:09 Hepatitis C Antibody Reactive (NEGATIVE) 06/26/17 07:09 HIV 1&2 Antibody Screen Negative (NEGATIVE) 06/26/17 07:09 - Hospital Course Hospital Course: HPI ( As per admission): Patient is a 54 y/o female with past medical history of pancreatic CA with metastasis to liver and pelvis, cirrhosis, anemia of chronic disease, impaired glucose intolerance, and hypothyroidism, who presents to the ED with complaints of abdominal distension and bilateral lower extremity edema. Patient states she needs paracentesis every 8 days, and today is her 11th day since her last procedure. As per patient, the abdominal distension and leg edema started right after her last paracentesis, where 6L of fluid was taken out. Her leg swelling makes her walking more difficult. She also complains of SOB, which worsens when lying down, and decreased urine output. Due to fluid accumulation, she noticed a 15lb weight gain since her last paracentesis. Currently, she complains of abdominal distension, orthopnea, bilateral lower extremity edema, chills, fatigue, dry cough, and pruritus secondary to chemotherapy. Patient denies fever, headache, dizziness, chest pain, diarrhea, dysuria, hematuria, and sick contacts. Hospital Course: Patient was admitted for diagnosis of Ascites secondary to pancreatic cancer, mets to liver/ovary, and cirrhosis, who presents to the hospital for recurrent paracentesis. Patient was seen and examined at bedside with attending, Dr. Darrel Pete, who performed a sterile paracentesis at bedside. 41/2 liter of fluid was removed and patient was given 2 dosed of albumin post-procedure. Patient tolerated procedure well and had no acute issues. Patient had no complaints. Patient remained stable after procedure and was cleared for discharge. Patient is to return in 1-2 weeks for paracentesis. This is a brief summary of event. For a complete summary, please refer to the medical records. Discharge Exam - Head Exam Head Exam: ATRAUMATIC Discharge Plan - Follow Up Plan Condition: FAIR Disposition: HOME/ ROUTINE Additional Instructions: Discharge Hotline Numbers: [place] [facility] 24 Hour Hotline: 3-357-553 HELP (6488) AA- Alcoholics Anonymous 24 Hour Hotline: 8-801-220- 4444 NA- Narcotics Anonymous 24 Hour Hotline: [place] [facility] Hotline - [place] [facility] If needed you can reach the detox unit at Avoid all mood and mind altering substances including alcohol. Make every effort to make 90 meetings in 90 days and obtain a sponsor and get involved in 12 step recovery. Follow up with you primary doctor for your medical needs Discharge Medications: Nutrition: Eat balanced meals incorporating fruits, vegetables and protein. Drink plenty of water throughout the day at least 8 to 10 cups. Sleep is extremely important in your recovery. Follow Up Appointments: Pending [facility] [address] [phone] ext [phone] Ms. Roberts
--- NOTE | 2017-06-30 09:33 | CP.PCM.PN ---
<Bill Watts - Last Filed: 06/30/17 09:43> Subjective - Date & Time of Evaluation Date of Evaluation: 06/30/17 Time of Evaluation: 07:05 - Subjective Subjective: Medicine progress note ( Dr. Scott Gibson's service) Patient was seen and examined at bedside. Patient was resting comfortably in bed. Patient reports that she is doing well with no acute issues. Patient denies chest pain, palpitation, fever, chills, nausea, vomiting, abdominal discomfort and diarrhea but admits to mild shortness of breath. Objective - Vital Signs/Intake and Output Vital Signs (last 24 hours): Temp Pulse Resp BP Pulse Ox 97.6 F 85 20 107/73 95 06/30/17 07:48 06/30/17 07:48 06/30/17 07:48 06/30/17 07:48 06/30/17 07:48 Intake and Output: 06/30/17 06/30/17 06:59 18:59 Intake Total 1350 Balance 1350 - Medications Medications: Current Medications Al Hydrox/Mg Hydrox/Simethicone (Maalox 30 Ml) 30 ml PO TID PRN PRN Reason: Indigestion / Heartburn Last Admin: 06/26/17 09:47 Dose: 30 ml Buprenorphine HCl (Subutex) 2 mg SL DAILY COUNTS INCLUDE 234 BEDS AT THE [facility] PRN Reason: Taper Stop: 06/30/17 09:59 Last Admin: 06/29/17 10:03 Dose: 2 mg Clonidine HCl (Catapres) 0.1 mg PO Q8 PRN PRN Reason: COWS Score More or Equal to 5 Last Admin: 06/27/17 11:05 Dose: 0.1 mg Folic Acid (Folic Acid) 1 mg PO DAILY COUNTS INCLUDE 234 BEDS AT THE [facility] Last Admin: 06/29/17 10:02 Dose: 1 mg Gabapentin (Neurontin) 300 mg PO TID COUNTS INCLUDE 234 BEDS AT THE [facility] Last Admin: 06/29/17 17:16 Dose: 300 mg Ciprofloxacin (Cipro 400mg/200ml Dsw) 400 mg in 200 mls @ 200 mls/hr IVPB Q12H COUNTS INCLUDE 234 BEDS AT THE [facility] Last Admin: 06/30/17 05:24 Dose: 200 mls/hr Vancomycin HCl 2,000 mg/ (Sodium Chloride) 500 mls @ 166.6 mls/hr IVPB Q12H COUNTS INCLUDE 234 BEDS AT THE [facility] Last Admin: 06/30/17 06:37 Dose: 166.6 mls/hr Ketorolac Tromethamine (Toradol) 15 mg IVP Q6 PRN PRN Reason: Pain, moderate (4-7) Ketorolac Tromethamine (Toradol) 30 mg IVP Q6 PRN PRN Reason: Pain, severe (8-10) Last Admin: 06/29/17 17:24 Dose: 30 mg Loperamide HCl (Imodium) 2 mg PO Q8 PRN PRN Reason: Diarrhea Lorazepam (Ativan) 1 mg PO Q6H PRN PRN Reason: Symptoms of alcohol withdrawl Last Admin: 06/29/17 19:54 Dose: 1 mg Multivitamins (Hexavitamin) 1 tab PO DAILY COUNTS INCLUDE 234 BEDS AT THE [facility] Last Admin: 06/29/17 10:01 Dose: 1 tab Nicotine (Nicoderm Cq) 1 patch TD DAILY COUNTS INCLUDE 234 BEDS AT [facility] Last Admin: 06/29/17 10:02 Dose: 1 patch Ondansetron HCl (Zofran Tab) 4 mg PO Q8 PRN PRN Reason: Nausea/Vomiting Pantoprazole Sodium (Protonix Ec Tab) 20 mg PO DAILY COUNTS INCLUDE 234 BEDS AT THE [facility] Last Admin: 06/29/17 10:02 Dose: 20 mg Quetiapine Fumarate (Seroquel) 50 mg PO HS COUNTS INCLUDE 234 BEDS AT THE [facility] Last Admin: 06/29/17 22:32 Dose: 50 mg Saccharomyces Boulardii (Florastor) 250 mg PO BID COUNTS INCLUDE 234 BEDS AT THE [facility] Last Admin: 06/29/17 17:16 Dose: 250 mg Thiamine HCl (Vitamin B1 Tab) 100 mg PO DAILY COUNTS INCLUDE 234 BEDS AT [facility] Last Admin: 06/29/17 10:02 Dose: 100 mg Trazodone HCl (Desyrel) 100 mg PO HS PRN PRN Reason: Insomnia Last Admin: 06/29/17 00:59 Dose: 100 mg - Labs Labs: 06/29/17 07:16 06/29/17 07:16 PT 10.0 SECONDS (9.7-12.2) 06/26/17 11:54 INR 0.9 06/26/17 11:54 - Constitutional Appears: Well, No Acute Distress - Head Exam Head Exam: ATRAUMATIC, NORMAL INSPECTION - Eye Exam Eye Exam: EOMI, Normal appearance - ENT Exam ENT Exam: Mucous Membranes Moist - Respiratory Exam Respiratory Exam: Clear to Ausculation Bilateral, NORMAL BREATHING PATTERN. absent: Prolonged Expiratory Phase, Rhonchi, Wheezes, Respiratory Distress, Stridor - Cardiovascular Exam Cardiovascular Exam: REGULAR RHYTHM, +S1, +S2 - GI/Abdominal Exam GI & Abdominal Exam: Soft, Normal Bowel Sounds. absent: Distended, Firm, Guarding, Rigid, Tenderness - Extremities Exam Extremities Exam: Normal Inspection. absent: Calf Tenderness, Pedal Edema Additional comments: Right anterior lower portion of wrist cellulitis is improving, mild pain with palpation and the area of erythema has reduced significantly and hardened - Neurological Exam Neurological Exam: Alert, Awake, Oriented x3 - Psychiatric Exam Psychiatric exam: Anxious - Skin Skin Exam: Normal Color Assessment and Plan (1) Cellulitis of right hand Assessment & Plan: Hand Surgery, Dr. Mullen * As per surgery, no surgical intervention. * New MRI findings discussed with surgical team, no surgical intervention at this time. Recommendation to apply warm compresses every 4 hours for 30mins and to continue IV antibiotics; conservative management. Labs: * Leukocytosis resolving - Elevated on 06/28/17 secondary to solumedrol dose given on 06/27/18 - will continue to monitor with am labs Imaging: Right US (06/24/17): Tenosynovitis, infectious or noninfectious. Clinical correlation is needed. Soft tissue edema, possibly cellulitis. Clinical correlation is needed. MRI (06/28/17): Soft tissue cellulitis with a suggestion of a small 9 millimeter abscess as described above confined to the ventral distal forearm extending to the wrist. Suggestion of a possible infected tenosynovitis of the palmaris longus tendon. Clincal correlation. Medications: * Cipro 400mg IV Q12H (start 06/25/17) * Vanco 1gm IV daily (start 06/25/17); Vanco trough not within the range of 15- 20 for deep tissue infection, therefore Vanco 2,000mg IV Q12H (Started 06/29/17) * Patient completed Clindamycin 300mg PO Q 6H for one day * Patient had completed Macrobid 100mg PO bid for two days * Toradol 15mg Q6H PRN ( Moderate pain) * Toradol 30mg Q6H PRN (Severe pain) * Warm compresses Q2H as per surgery recommendation * Florastor 250mg PO BID Status: Acute (2) Tobacco abuse Assessment & Plan: Nicotine 21mg/24 hr transdermal patch Status: Acute (3) UTI (urinary tract infection) Assessment & Plan: UA: 1+ protein, 2+ leukocyte esterase, 9 WBC, 5 RBC, few bacteria UC: Gram negative DESTINY (<10,000 CFU) Medication: * Start Cipro 400mg IV Q12H (active since 06/25/17) * Patient had completed Macrobid 100mg PO bid for two days Status: Acute (4) Drug abuse Assessment & Plan: Psychiatry, Dr. Kumar---> On board * UDS: +opiates, cocaine, barbiturates ology screen: +opiates, cocaine, barbiturates * Management as per psychiatry * [facility]tex detox * Gabapentin for augmentation * Seroquel 50mg PO HS and Trazadone 50mg PO HS for sleep Status: Acute (5) Hypokalemia Assessment & Plan: Resolved Continue to monitor with labs Status: Acute (6) Systolic ejection murmur Assessment & Plan: Noted on exam by Dr. Konstantin gibson on Exam Echocardiogram: left ventricle systolic function is normal, EF (55-60%), left ventricular diastolic function is normal, mild aortic regurgitation and mild pulmonary hypertension Status: Acute (7) Anemia Assessment & Plan: Labs: * reticulocyte count:1.8 F * Ferritin: 63.9 * TIBC: 260 * Iron: 69 * %iron saturation: 27 * Folate: 12.3 * B12:553 Management: Continue to Monitor H/H Status: Acute (8) History of hepatitis C Assessment & Plan: * Hepatitis C Reactive * HIV 1/2: negative * Awaitin Hep C viral count Status: Acute (9) Prophylactic measure Assessment & Plan: * GI: Protonix 20mg PO daily * DVT: Ambulates, RISK: 0 Disposition: Possible discharge tomorrow on PO antibiotics All plans and management discussed with attending, Dr. Scott Gibson Status: Acute <Konstantin Gibson - Last Filed: 06/30/17 18:19> Objective - Vital Signs/Intake and Output Vital Signs (last 24 hours): Temp Pulse Resp BP Pulse Ox 97.4 F L 88 20 114/68 98 06/30/17 15:15 06/30/17 15:15 06/30/17 15:15 06/30/17 15:15 06/30/17 15:15 Intake and Output: 06/30/17 06/30/17 06:59 18:59 Intake Total 1350 480 Balance 1350 480 - Medications Medications: Current Medications Al Hydrox/Mg Hydrox/Simethicone (Maalox 30 Ml) 30 ml PO TID PRN PRN Reason: Indigestion / Heartburn Last Admin: 06/26/17 09:47 Dose: 30 ml Clonidine HCl (Catapres) 0.1 mg PO Q8 PRN PRN Reason: COWS Score More or Equal to 5 Last Admin: 06/27/17 11:05 Dose: 0.1 mg Folic Acid (Folic Acid) 1 mg PO DAILY COUNTS INCLUDE 234 BEDS AT [facility] Last Admin: 06/30/17 09:44 Dose: 1 mg Gabapentin (Neurontin) 300 mg PO TID COUNTS INCLUDE 234 BEDS AT [facility] Last Admin: 06/30/17 18:03 Dose: 300 mg Ciprofloxacin (Cipro 400mg/200ml Dsw) 400 mg in 200 mls @ 200 mls/hr IVPB Q12H COUNTS INCLUDE 234 BEDS AT THE [facility] Last Admin: 06/30/17 17:26 Dose: 200 mls/hr Vancomycin HCl 2,000 mg/ (Sodium Chloride) 500 mls @ 166.6 mls/hr IVPB Q12H COUNTS INCLUDE 234 BEDS AT THE [facility] Last Admin: 06/30/17 06:37 Dose: 166.6 mls/hr Ketorolac Tromethamine (Toradol) 15 mg IVP Q6 PRN PRN Reason: Pain, moderate (4-7) Ketorolac Tromethamine (Toradol) 30 mg IVP Q6 PRN PRN Reason: Pain, severe (8-10) Last Admin: 06/29/17 17:24 Dose: 30 mg Loperamide HCl (Imodium) 2 mg PO Q8 PRN PRN Reason: Diarrhea Lorazepam (Ativan) 1 mg PO Q6H PRN PRN Reason: Symptoms of alcohol withdrawl Last Admin: 06/29/17 19:54 Dose: 1 mg Multivitamins (Hexavitamin) 1 tab PO DAILY COUNTS INCLUDE 234 BEDS AT [facility] Last Admin: 06/30/17 09:44 Dose: 1 tab Nicotine (Nicoderm Cq) 1 patch TD DAILY COUNTS INCLUDE 234 BEDS AT [facility] Last Admin: 06/30/17 09:43 Dose: 1 patch Ondansetron HCl (Zofran Tab) 4 mg PO Q8 PRN PRN Reason: Nausea/Vomiting Pantoprazole Sodium (Protonix Ec Tab) 20 mg PO DAILY COUNTS INCLUDE 234 BEDS AT [facility] Last Admin: 02/21/18 09:43 Dose: 20 mg Quetiapine Fumarate (Seroquel) 50 mg PO HS COUNTS INCLUDE 234 BEDS AT [facility] Last Admin: 06/29/17 22:32 Dose: 50 mg Saccharomyces Boulardii (Florastor) 250 mg PO BID COUNTS INCLUDE 234 BEDS AT [facility] Last Admin: 06/30/17 18:03 Dose: 250 mg Thiamine HCl (Vitamin B1 Tab) 100 mg PO DAILY COUNTS INCLUDE 234 BEDS AT [facility] Last Admin: 06/30/17 09:44 Dose: 100 mg Trazodone HCl (Desyrel) 100 mg PO HS PRN PRN Reason: Insomnia Last Admin: 06/29/17 00:59 Dose: 100 mg - Labs Labs: 06/30/17 11:14 06/30/17 11:14 PT 10.0 SECONDS (9.7-12.2) 06/26/17 11:54 INR 0.9 06/26/17 11:54 Attending/Attestation - Attestation I have personally seen and examined this patient.: Yes I have fully participated in the care of the patient.: Yes I have reviewed all pertinent clinical information, including history, physical exam and plan: Yes Notes (Text): 06/30/17 18:14 Patient was seen and examined at 9:30 AM 06/30/17 Bed 350 A Exam, assessment and plan were gone over with the resident. Also on ROS: Pain in anterior lower portion of Right Wrist if pressed, area of hardness has decreased in size Tired of being here Exam: General: AAOX3, NAD HEENT: NCA, EOMI, PERRLA, NO cervical/supraclavicular/submandibular lymphadenopathy, NO pharyngeal erythema/exudate, Nasal Turbinates are nonerythematous/nonedematous, Oral Mucosa is moist Cardio: NS1 and NS2, Systolic Ejection Murmur in all auscultatory field Resp: CTA B/L, NO R/R/W GI: BSx4, Soft, NT, NO HSM, NO guarding/rebound tenderness Ext: Pulses are strong and equal, Capillary Refill is 2 seconds, NO edema noted in the bilateral legs, Right Wrist (anterior lower portion before the hand there is a hardness that was palpated that is slightly tender to palpation and there is NO erythema or warmth noted: the size of this hardness as reduced in size as well as the pain upon palpation) Neuro: CN II through XII are grossly intact Assessments: 1). Right Wrist Cellulitis/Possible Abscess MRI Wrist shows 9 mm area of phlegmon vs abscess: spoke with rn surgical pcu and for now NO surgery. Continue IV antibiotics and warm compress Vancomycin dose increased to 2 gm IV Q12H starting at 6:30 PM and follow up Vancomycin Trough at 6 AM 07/01/17 Ciprofloxacin Toradol PRN Pain 2). Hx Tobacco Use Nicotine TD 3). Dysuria Secondary to UTI Urine Culture 06/24/17 showed Gram Negative Rods: NO sensitivities reported however repeat Urine Culture shows NO growth Blood Culture 06/24/17 is negative to date Ciprofloxacin 4). Heroin Abuse Subutex taper with last dose on 06/29/17 Clonodine PRN 5) Hypokalemia Resolved 6). Anemia Stable HgB/Hct 7). Leukocytosis Dose of Solumedrol given by Medicine Team on 06/27/17 for the Tensynovitis seen on Right Wrist U/S 06/24/17. Monitor 8). Systolic Ejection Murmur 2D Echocardiogram 06/29/17 did not show any evidence of endocarditis or vegetation. As blood culture is negative to date, there are no fevers, HOLD off on RENETTA 9). Hepatitis C Patient will need to follow up with GI through [facility] 10). Alcohol Abuse Folic Acid Lorezepam Gabapentin MVI Thiamine Medicine Team will sign off on patient 07/01/17 as long as she continues to improve and will recommend a total of 14 days (from the start of antibiotics) of antibiotics. I spoke with Psychiatrist Dr. Villar and he will notify [facility] Konstantin Gibson D.O.
[2017-06-30] MEDS: Pantoprazole 20 mg EC Tab PO SCH (09:43)
[2017-06-30] MEDS: Multiple Vitamins Tab PO SCH (09:44)
[2017-06-30] MEDS: Saccharomyces Boulardi 250 mg Cap PO SCH ×2 (09:44→18:03)
[2017-06-30 11:25] LABS: BASO % 0.6 % (0.0-2.0); EOS # 0.4 K/uL (0.0-0.7); EOS % 6.2 % (0.0-4.0); HEMOGLOBIN 9.9 g/dL (11.0-16.0); LYMPH # 3.2 K/uL (1.0-4.3); LYMPH % 46.6 % (20.0-40.0); MEAN CELL VOLUME 94.3 fL (81.0-99.0); MEAN CORPUSCULAR HEMOGLOBIN 32.5 pg (27.0-31.0); MEAN CORPUSCULAR HGB CONC 34.5 g/dL (33.0-37.0); MEAN PLATELET VOLUME 8.6 fL (7.2-11.7); MONO # 0.5 K/uL (0.0-0.8); MONO % 7.7 % (0.0-10.0); NEUT # 2.6 K/uL (1.8-7.0); NEUT % 38.9 % (50.0-75.0); RBC 3.04 Mil/uL (3.80-5.20); WHITE BLOOD COUNT 6.8 K/uL (4.8-10.8)
[2017-06-30 11:46] LABS: ALB/GLOB RATIO 1.1 (1.0-2.1); ALBUMIN 2.8 g/dL (3.5-5.0); ALT/SGPT 34 U/L (9-52); AST/SGOT 40 U/L (14-36); BLOOD UREA NITROGEN 10 mg/dL (7-17); GFR AFRICAN-AMERICAN > 60; GFR NON-AFRICAN AMERICAN > 60; MAGNESIUM 1.9 mg/dL (1.6-2.3)
[2017-06-30 16:14] VITALS: BP 114/68; PULSE 88; TEMP 97.4; O2SAT 98
--- NOTE | 2017-07-01 00:17 | CP.PCM.PCO ---
Physician Communication Note - Physician Communication Note Physician Communication Note: Code Echo @00:10am. Patient did not wait to AMA. Per nurse, IV removed.
--- NOTE | 2017-07-01 07:27 | CP.PCM.DIS ---
<Guerita Jordan - Last Filed: 07/01/17 07:05> Provider - Provider Date of Admission: 06/23/17 23:13 Attending physician: Alejandrina Yee DO Time Spent in preparation of Discharge (in minutes): 5 Hospital Course - Lab Results Lab Results: Micro Results 06/24/17 15:45 Blood-Venous Blood Culture - Final NO GROWTH AFTER 5 DAYS 06/24/17 15:45 Blood-Venous Gram Stain - Final TEST NOT PERFORMED 06/24/17 14:40 Blood-Venous Blood Culture - Final NO GROWTH AFTER 5 DAYS 06/24/17 14:40 Blood-Venous Gram Stain - Final TEST NOT PERFORMED 06/27/17 16:32 Urine Urine Culture - Final No Growth (<1,000 CFU/ML) 06/24/17 Unknown Urine Urine Culture - Final Gram Negative Sergo Most Recent Lab Values WBC 6.8 K/uL (4.8-10.8) 06/30/17 11:14 RBC 3.04 Mil/uL (3.80-5.20) L 06/30/17 11:14 Hgb 9.9 g/dL (11.0-16.0) L 06/30/17 11:14 Hct 28.7 % (34.0-47.0) L 06/30/17 11:14 MCV 94.3 fL (81.0-99.0) 06/30/17 11:14 MCH 32.5 pg (27.0-31.0) H 06/30/17 11:14 MCHC 34.5 g/dL (33.0-37.0) 06/30/17 11:14 RDW 13.0 % (11.5-14.5) 06/30/17 11:14 Plt Count 297 K/uL (130-400) 06/30/17 11:14 MPV 8.6 fL (7.2-11.7) 06/30/17 11:14 Neut % (Auto) 38.9 % (50.0-75.0) L 06/30/17 11:14 Lymph % (Auto) 46.6 % (20.0-40.0) H 06/30/17 11:14 [place] % (Auto) 7.7 % (0.0-10.0) 06/30/17 11:14 Eos % (Auto) 6.2 % (0.0-4.0) H 06/30/17 11:14 Baso % (Auto) 0.6 % (0.0-2.0) 06/30/17 11:14 Neut # (Auto) 2.6 K/uL (1.8-7.0) 06/30/17 11:14 Lymph # (Auto) 3.2 K/uL (1.0-4.3) 06/30/17 11:14 [place] # (Auto) 0.5 K/uL (0.0-0.8) 06/30/17 11:14 Eos # (Auto) 0.4 K/uL (0.0-0.7) 06/30/17 11:14 Baso # (Auto) 0.0 K/uL (0.0-0.2) 06/30/17 11:14 Neutrophils % (Manual) 80 % (50-75) H 06/23/17 21:29 Band Neutrophils % 5 % (0-2) H 06/23/17 21:29 Lymphocytes % (Manual) 9 % (20-40) L 06/23/17 21:29 Monocytes % (Manual) 6 % (0-10) 06/23/17 21:29 Platelet Estimate Normal (NORMAL) 06/23/17 21:29 Retic Count 1.8 % (0.5-1.5) H 06/26/17 10:31 PT 10.0 SECONDS (9.7-12.2) 06/26/17 11:54 INR 0.9 06/26/17 11:54 Sodium 136 mmol/L (132-148) 06/30/17 11:14 Potassium 3.7 mmol/L (3.6-5.2) 06/30/17 11:14 Chloride 103 mmol/L (98-107) 06/30/17 11:14 Carbon Dioxide 27 mmol/L (22-30) 06/30/17 11:14 Anion Gap 10 (10-20) 06/30/17 11:14 BUN 10 mg/dL (7-17) 06/30/17 11:14 Creatinine 0.6 mg/dL (0.7-1.2) L 06/30/17 11:14 Est GFR ( Amer) > 60 06/30/17 11:14 Est GFR (Non-Af Amer) > 60 06/30/17 11:14 Random Glucose 92 mg/dL (65-105) 06/30/17 11:14 Calcium 8.0 mg/dl (8.6-10.4) L 06/30/17 11:14 Phosphorus 4.2 mg/dL (2.5-4.5) 06/30/17 11:14 Magnesium 1.9 mg/dL (1.6-2.3) 06/30/17 11:14 Iron 69 ug/dL (37-170) 06/26/17 10:15 TIBC 260 ug/dL (250-450) 06/26/17 10:15 % Saturation 27 (20-55) 06/26/17 10:15 Ferritin 63.9 ng/mL 06/26/17 10:15 Total Bilirubin < 0.1 mg/dL (0.2-1.3) L 06/30/17 11:14 AST 40 U/L (14-36) H D 06/30/17 11:14 ALT 34 U/L (9-52) 06/30/17 11:14 Alkaline Phosphatase 50 U/L (38-126) 06/30/17 11:14 Total Protein 5.4 g/dL (6.3-8.3) L 06/30/17 11:14 Albumin 2.8 g/dL (3.5-5.0) L 06/30/17 11:14 Globulin 2.6 gm/dL (2.2-3.9) 06/30/17 11:14 Albumin/Globulin Ratio 1.1 (1.0-2.1) 06/30/17 11:14 Vitamin B12 553 pg/mL (239-931) 06/26/17 10:15 Folate 12.3 ng/mL 06/26/17 10:15 Urine Color Yellow (YELLOW) 06/23/17 21:29 Urine Clarity Hazy (Clear) 06/23/17 21: Urine pH 5.0 (5.0-8.0) 06/23/17 21:29 Ur Specific [place] 1.018 (1.003-1.030) 06/23/17 21: Urine Protein 1+ mg/dL (NEGATIVE) H 06/23/17 21:29 Urine Glucose (UA) Normal mg/dL (Normal) 06/23/17 21:29 Urine Ketones Negative mg/dL (NEGATIVE) 06/23/17 21:29 Urine Blood Negative (NEGATIVE) 06/23/17 21:29 Urine Nitrate Negative (NEGATIVE) 06/23/17 21:29 Urine Bilirubin Negative (NEGATIVE) 06/23/17 21:29 Urine Urobilinogen Normal mg/dL (0.2-1.0) 06/23/17 21:29 Ur Leukocyte Esterase 2+ Stacy/uL (Negative) H 06/23/17 21:29 Urine WBC (Auto) 9 /hpf (0-5) H 06/23/17 21:29 Urine RBC (Auto) 5 /hpf (0-3) H 06/23/17 21:29 Ur Squamous Epith Cells 4 /hpf (0-5) 06/23/17 21:29 Urine Bacteria Few (<OCC) H 06/23/17 21:29 Hyaline Casts 0-2 /lpf (0-2) 06/23/17 21:29 Urine HCG, Qual Negative (NEGATIVE) 06/23/17 21:29 Vancomycin Trough 5.9 ug/mL (5.0-10.0) 06/28/17 19:37 Urine Opiates Screen Positive (NEGATIVE) H 06/23/17 21:29 Urine Methadone Screen Negative (NEGATIVE) 06/23/17 21:29 Ur Barbiturates Screen Positive (NEGATIVE) H 06/23/17 21:29 Ur Phencyclidine Scrn Negative (NEGATIVE) 06/23/17 21:29 Ur Amphetamines Screen Negative (NEGATIVE) 06/23/17 21:29 U Benzodiazepines Scrn Negative (NEGATIVE) 06/23/17 21:29 U Oth Cocaine Metabols Positive (NEGATIVE) H 06/23/17 21:29 U Cannabinoids Screen Negative (NEGATIVE) 06/23/17 21:29 Alcohol, Quantitative < 10 mg/dl (0-10) 06/23/17 21:29 Hepatitis A IgM Ab Negative (NEGATIVE) 06/26/17 07:09 Hep Bs Antigen Negative (NEGATIVE) 06/26/17 07:09 Hep B Core IgM Ab Negative (NEGATIVE) 06/26/17 07:09 Hepatitis C Antibody Reactive (NEGATIVE) 06/26/17 07:09 HIV 1&2 Antibody Screen Negative (NEGATIVE) 06/26/17 07:09 - Hospital Course Hospital Course: HPI: Patient is a 32 y/o female who presents to the hospital with complaint of right wrist pain, warmth, and swelling. She states the pain started last night after she injected cocaine IV with an old needle. She states the needle was never shared with anyone. This morning, she woke up with worse swelling and aching pain of the wrist. As per patient, the pain worsens when she firer bisque kiln her hand or bends her wrist; the pain gets better with running cold water over the area. She describes the pain as being a dull ache, and it does not radiate anywhere along the arm or fingers. On a pain scale, she rates it a 6 -7/10. Patient admits to having I&D for an abscess on the distal part of her right arm in the past. Currently, she denies fever, headache, chest pain, palpitations, SOB, numbness, and tingling. Social Hx: smokes 1 pack of cigarettes daily for 20 yrs., smokes 5-10 bags of cocaine daily for 3 yrs., uses heroine IV 12-15 bags daily on/off for 15 yrs., Klonopin 2 1mg pill daily for 3 yrs.; homeless; does not work; has one son who does not live with her. MHx: Hep. C (diagnosed in 2005); alcohol-induced seizure (2010); history of multiple seizures as a child Allergies: shellfish (anaphylactic shock) SHx: left knee meniscus repair; 1 vaginal delivery Hosp: psych detox >10x FHx: mom of metastatic breast CA; dad living, depression Meds: denies; received treatment of Hep. C in 2006 but failed and never returned for follow up Hospital Course: Patient was admitted on 06/23/17 for detox from benzodiazepines and heroin. Medicine was then consulted for cellulitis of the right upper extremity. Patient was transferred to the floors for continued management. Right hand US showed tenosynovitis and soft tissue edema, possibly cellulitis. Patient was started on IV antibiotics and warm compresses. Plastic surgery was consulted, Dr. Mullen, for possible hand surgery. As per surgery, no surgical intervention needed at the time. Patient was also found to have a UTI for which she was treated with antibiotics. Psychiatry continued management for polysubstance abuse and withdrawal. MRI of the upper extremity showed Soft tissue cellulitis with a suggestion of a small 9 millimeter abscess confined to the ventral distal forearm extending to the wrist; suggestion of a possible infected tenosynovitis of the palmaris longus tendon. As per surgery, no surgical intervention needed after discussing MRI results. ON exam, systolic murmur noted. Echocardiogram was ordered and showed left ventricle systolic function is normal, EF (55-60%), left ventricular diastolic function is normal, mild aortic regurgitation and mild pulmonary hypertension. Patient wanted to leave and did not wait to sign AMA form. Code Echo was called at 00:15am. As per nurse, IV was removed prior to patient leaving. This is a brief summary of the hospital course. Please see EMR for more details. Discharge Exam - Head Exam Head Exam: ATRAUMATIC, NORMAL INSPECTION Discharge Plan - Follow Up Plan Condition: FAIR Disposition: HOME/ ROUTINE Additional Instructions: Discharge Hotline Numbers: [facility] 24 Hour Hotline: 4-090-480 HELP (3057) AA- Alcoholics Anonymous 24 Hour Hotline: 7-001-191- 7149 NA- Narcotics Anonymous 24 Hour Hotline: [place] [facility] Hotline - [place] Quitline If needed you can reach the detox unit at Avoid all mood and mind altering substances including alcohol. Make every effort to make 90 meetings in 90 days and obtain a sponsor and get involved in 12 step recovery. Follow up with you primary doctor for your medical needs Discharge Medications: Nutrition: Eat balanced meals incorporating fruits, vegetables and protein. Drink plenty of water throughout the day at least 8 to 10 cups. Sleep is extremely important in your recovery. Follow Up Appointments: Pending [facility] [address] [place] [phone] Ms[address] Roberst <Konstantin Dominguez - Last Filed: 07/01/17 19:00> Provider - Provider Date of Admission: 06/23/17 23:13 Attending physician: Alejandrina Yee DO Hospital Course - Lab Results Lab Results: Micro Results 06/24/17 15:45 Blood-Venous Blood Culture - Final NO GROWTH AFTER 5 DAYS 06/24/17 15:45 Blood-Venous Gram Stain - Final TEST NOT PERFORMED 06/24/17 14:40 Blood-Venous Blood Culture - Final NO GROWTH AFTER 5 DAYS 06/24/17 14:40 Blood-Venous Gram Stain - Final TEST NOT PERFORMED 06/27/17 16:32 Urine Urine Culture - Final No Growth (<1,000 CFU/ML) 06/24/17 Unknown Urine Urine Culture - Final Gram Negative Sergo Most Recent Lab Values WBC 6.8 K/uL (4.8-10.8) 06/30/17 11:14 RBC 3.04 Mil/uL (3.80-5.20) L 06/30/17 11:14 Hgb 9.9 g/dL (11.0-16.0) L 06/30/17 11:14 Hct 28.7 % (34.0-47.0) L 06/30/17 11:14 MCV 94.3 fL (81.0-99.0) 06/30/17 11:14 MCH 32.5 pg (27.0-31.0) H 06/30/17 11:14 MCHC 34.5 g/dL (33.0-37.0) 06/30/17 11:14 RDW 13.0 % (11.5-14.5) 06/30/17 11:14 Plt Count 297 K/uL (130-400) 06/30/17 11:14 MPV 8.6 fL (7.2-11.7) 06/30/17 11:14 Neut % (Auto) 38.9 % (50.0-75.0) L 06/30/17 11:14 Lymph % (Auto) 46.6 % (20.0-40.0) H 06/30/17 11:14 [place] % (Auto) 7.7 % (0.0-10.0) 06/30/17 11:14 Eos % (Auto) 6.2 % (0.0-4.0) H 06/30/17 11:14 Baso % (Auto) 0.6 % (0.0-2.0) 06/30/17 11:14 Neut # (Auto) 2.6 K/uL (1.8-7.0) 06/30/17 11:14 Lymph # (Auto) 3.2 K/uL (1.0-4.3) 06/30/17 11:14 [place] # (Auto) 0.5 K/uL (0.0-0.8) 06/30/17 11:14 Eos # (Auto) 0.4 K/uL (0.0-0.7) 06/30/17 11:14 Baso # (Auto) 0.0 K/uL (0.0-0.2) 06/30/17 11:14 Neutrophils % (Manual) 80 % (50-75) H 06/23/17 21:29 Band Neutrophils % 5 % (0-2) H 06/23/17 21:29 Lymphocytes % (Manual) 9 % (20-40) L 06/23/17 21:29 Monocytes % (Manual) 6 % (0-10) 06/23/17 21:29 Platelet Estimate Normal (NORMAL) 06/23/17 21:29 Retic Count 1.8 % (0.5-1.5) H 06/26/17 10:31 PT 10.0 SECONDS (9.7-12.2) 06/26/17 11:54 INR 0.9 06/26/17 11:54 Sodium 136 mmol/L (132-148) 06/30/17 11:14 Potassium 3.7 mmol/L (3.6-5.2) 06/30/17 11:14 Chloride 103 mmol/L (98-107) 06/30/17 11:14 Carbon Dioxide 27 mmol/L (22-30) 06/30/17 11:14 Anion Gap 10 (10-20) 06/30/17 11:14 BUN 10 mg/dL (7-17) 06/30/17 11:14 Creatinine 0.6 mg/dL (0.7-1.2) L 06/30/17 11:14 Est GFR ( Amer) > 60 06/30/17 11:14 Est GFR (Non-Af Amer) > 60 06/30/17 11:14 Random Glucose 92 mg/dL (65-105) 06/30/17 11:14 Calcium 8.0 mg/dl (8.6-10.4) L 06/30/17 11:14 Phosphorus 4.2 mg/dL (2.5-4.5) 06/30/17 11:14 Magnesium 1.9 mg/dL (1.6-2.3) 06/30/17 11:14 Iron 69 ug/dL (37-170) 06/26/17 10:15 TIBC 260 ug/dL (250-450) 06/26/17 10:15 % Saturation 27 (20-55) 06/26/17 10:15 Ferritin 63.9 ng/mL 06/26/17 10:15 Total Bilirubin < 0.1 mg/dL (0.2-1.3) L 06/30/17 11:14 AST 40 U/L (14-36) H D 06/30/17 11:14 ALT 34 U/L (9-52) 06/30/17 11:14 Alkaline Phosphatase 50 U/L (38-126) 06/30/17 11:14 Total Protein 5.4 g/dL (6.3-8.3) L 06/30/17 11:14 Albumin 2.8 g/dL (3.5-5.0) L 06/30/17 11:14 Globulin 2.6 gm/dL (2.2-3.9) 06/30/17 11:14 Albumin/Globulin Ratio 1.1 (1.0-2.1) 06/30/17 11:14 Vitamin B12 553 pg/mL (239-931) 06/26/17 10:15 Folate 12.3 ng/mL 06/26/17 10:15 Urine Color Yellow (YELLOW) 06/23/17 21:29 Urine Clarity Hazy (Clear) 06/23/17 21: Urine pH 5.0 (5.0-8.0) 06/23/17 21:29 Ur Specific [place] 1.018 (1.003-1.030) 06/23/17 21: Urine Protein 1+ mg/dL (NEGATIVE) H 06/23/17 21:29 Urine Glucose (UA) Normal mg/dL (Normal) 06/23/17 21: Urine Ketones Negative mg/dL (NEGATIVE) 06/23/17 21: Urine Blood Negative (NEGATIVE) 06/23/17 21: Urine Nitrate Negative (NEGATIVE) 06/23/17 21: Urine Bilirubin Negative (NEGATIVE) 06/23/17 21: Urine Urobilinogen Normal mg/dL (0.2-1.0) 06/23/17 21: Ur Leukocyte Esterase 2+ Stacy/uL (Negative) H 06/23/17 21:29 Urine WBC (Auto) 9 /hpf (0-5) H 06/23/17 21:29 Urine RBC (Auto) 5 /hpf (0-3) H 06/23/17 21:29 Ur Squamous Epith Cells 4 /hpf (0-5) 06/23/17 21:29 Urine Bacteria Few (<OCC) H 06/23/17 21:29 Hyaline Casts 0-2 /lpf (0-2) 06/23/17 21:29 Urine HCG, Qual Negative (NEGATIVE) 06/23/17 21:29 Vancomycin Trough 5.9 ug/mL (5.0-10.0) 06/28/17 19:37 Urine Opiates Screen Positive (NEGATIVE) H 06/23/17 21:29 Urine Methadone Screen Negative (NEGATIVE) 06/23/17 21:29 Ur Barbiturates Screen Positive (NEGATIVE) H 06/23/17 21:29 Ur Phencyclidine Scrn Negative (NEGATIVE) 06/23/17 21:29 Ur Amphetamines Screen Negative (NEGATIVE) 06/23/17 21:29 U Benzodiazepines Scrn Negative (NEGATIVE) 06/23/17 21:29 U Oth Cocaine Metabols Positive (NEGATIVE) H 06/23/17 21:29 U Cannabinoids Screen Negative (NEGATIVE) 06/23/17 21:29 Alcohol, Quantitative < 10 mg/dl (0-10) 06/23/17 21:29 Hepatitis A IgM Ab Negative (NEGATIVE) 06/26/17 07:09 Hep Bs Antigen Negative (NEGATIVE) 06/26/17 07:09 Hep B Core IgM Ab Negative (NEGATIVE) 06/26/17 07:09 Hepatitis C Antibody Reactive (NEGATIVE) 06/26/17 07:09 HCV RNA Qual (TMA) Detected H 06/27/17 20:47 HIV 1&2 Antibody Screen Negative (NEGATIVE) 06/26/17 07:09 Attending/Attestation - Attestation I have personally seen and examined this patient.: No I have fully participated in the care of the patient.: Yes I have reviewed all pertinent clinical information, including history, physical exam and plan: Yes
--- NOTE | 2017-07-01 08:58 | CP.PCM.PCO ---
Physician Communication Note - Physician Communication Note Physician Communication Note: See above
== END 2017-07-01 00:30 | disposition home or self-care (01) | DRG 203 ==
LOC: C.ER 20:22 → C.7D 23:13 → C.3T 06-25 16:55
PROVIDERS: ADMIT Hospitalist; ATTEND Hospitalist
PROC: HZ2ZZZZ Detoxification Services for Substance Abuse Treatment (ICD-10-PCS; principal; 2017-06-23)
PROC: 0W9G3ZZ Drainage of Peritoneal Cavity, Percutaneous Approach (ICD-10-PCS; 2017-06-30)
DX: C25.9 Malignant neoplasm of pancreas, unspecified (principal); C78.7 Secondary malignant neoplasm of liver and intrahepatic bile duct; I27.20 Pulmonary hypertension, unspecified; R18.8 Other ascites; K74.60 Unspecified cirrhosis of liver; L02.413 Cutaneous abscess of right upper limb; F11.23 Opioid dependence with withdrawal; E87.6 Hypokalemia; F19.20 Other psychoactive substance dependence, uncomplicated; L03.113 Cellulitis of right upper limb; N39.0 Urinary tract infection, site not specified; F14.90 Cocaine use, unspecified, uncomplicated; D63.8 Anemia in other chronic diseases classified elsewhere; E03.9 Hypothyroidism, unspecified; F17.210 Nicotine dependence, cigarettes, uncomplicated; F41.9 Anxiety disorder, unspecified; M65.9 Synovitis and tenosynovitis, unspecified; Z59.0 Homelessness; Z86.11 Personal history of tuberculosis

== ENCOUNTER 2017-07-24 12:48 | Emergency (ER) | payer MEDICAID ==
[2017-07-24 12:59] VITALS: BP 114/78; PULSE 96; RESP 18; TEMP 97.8; O2SAT 94
[2017-07-24 13:26] LABS: BASO # 0.1 K/uL (0.0-0.2); BASO % 0.8 % (0.0-2.0); EOS # 0.4 K/uL (0.0-0.7); EOS % 4.2 % (0.0-4.0); LYMPH # 3.2 K/uL (1.0-4.3); MEAN CORPUSCULAR HEMOGLOBIN 32.2 pg (27.0-31.0); MEAN PLATELET VOLUME 8.7 fL (7.2-11.7); MONO # 0.6 K/uL (0.0-0.8); NEUT # 6.3 K/uL (1.8-7.0); RBC 3.96 Mil/uL (3.80-5.20); RED CELL DISTRIBUTION WIDTH 13.4 % (11.5-14.5)
[2017-07-24 13:27] LABS: HEMOGLOBIN 12.7 g/dL (11.0-16.0); WHITE BLOOD COUNT 10.8 K/uL (4.8-10.8)
[2017-07-24 13:28] LABS: MEAN CELL VOLUME 92.1 fL (81.0-99.0)
--- NOTE | 2017-07-24 13:28 | C.PDOC ---
History Of Present Illness 32 y/o female with PMHx of polysubstance abuse presents to ED requesting detox from Heroin, Klonopin and Oxycontin. Patient reports last dose of drug was 7am this morning. Patient admits to previous detox admission and currently complains of mild nausea. Patient denies any other physical complaints at this time. AMbulate to ED for evaluation, appears comfortable, appropriate, not in any apparent distress. Time Seen by Provider: 07/24/17 12:50 Chief Complaint (Nursing): Substance Abuse History Per: Patient History/Exam Limitations: no limitations Onset/Duration Of Symptoms: Hrs Current Symptoms Are (Timing): Still Present Suicide/Self Injury Attempted (Context): None Past Medical History Reviewed: Historical Data, Nursing Documentation, Vital Signs Vital Signs: Last Vital Signs Temp 97.8 F 07/24/17 12:55 Pulse 96 H 07/24/17 12:55 Resp 18 07/24/17 12:55 BP 114/78 07/24/17 12:55 Pulse Ox 94 L 07/24/17 13:35 - Medical History PMH: Anxiety, Depression, Seizures (" from alcohol withdrawal" as per Patient) Surgical History: No Surg Hx - [facility] Procedures DETOXIFICATION SERVICES FOR SUBSTANCE ABUSE TREATMENT (06/23/17) DRAINAGE OF PERITONEAL CAVITY, PERCUTANEOUS APPROACH (06/23/17) DRUG REHABILITATION AND DETOXIFICATION (01/10/15) INDIVIDUAL PSYCHOTHERAPY, SUPPORTIVE (02/21/17) Family History: States: No Known Family Hx - Social History Hx Alcohol Use: (Socially) Hx Substance Use: Yes - Immunization History Hx Tetanus Toxoid Vaccination: No Hx Influenza Vaccination: No Hx Pneumococcal Vaccination: No Review Of Systems Constitutional: Negative for: Fever, Chills Cardiovascular: Negative for: Chest Pain Gastrointestinal: Negative for: Nausea, Vomiting Psych: Negative for: Suicidal ideation, Withdrawal Physical Exam - Physical Exam Appears: Well, Non-toxic, No Acute Distress Skin: Warm, Dry, No Rash Head: Atraumatic, Normacephalic Eye(s): bilateral: PERRL Nose: No Flaring, No Discharge Oral Mucosa: Moist, No Drooling Throat: No Erythema, No Drooling Neck: Trachea Midline, Supple Cardiovascular: Rhythm Regular, No Murmur, No JVD Respiratory: No Decreased Breath Sounds, No Accessory Muscle Use, No Rales, No Rhonchi, No Stridor, No Wheezing Gastrointestinal/Abdominal: Soft, No Tenderness, No Distention, No Guarding, No Rebound Back: No CVA Tenderness Extremity: Normal ROM, No Tenderness, Capillary Refill (<2 seconds) Neurological/Psych: Oriented x3, Normal Speech Gait: Steady ED Course And Treatment - Laboratory Results Result Diagrams: 07/24/17 13:22 07/24/17 13:22 Lab Interpretation: Normal O2 Sat by Pulse Oximetry: 94 (RA) Pulse Ox Interpretation: Normal Progress Note: On re-eval, pt is afebrile, hemodynamicaly stable. Non-toxic. AMbulatory in ED with stable gait. Neck: SUpple. Lungs: CTA B/L, BS equal B/ L. CVS: (+)S1S2, reg. ABd: benign. Neurologicaly intact. Pt was seen by [facility] , no beds available at present time. Pt was given resources for other detox locations. At present time, ptdenies suicidal or homocidal ideation, depression , understanda, stable for discharge now and outpt f/u. Disposition Counseled Patient/Family Regarding: Diagnosis, Need For Followup - Disposition Referrals: Community Mental Health [Outside] Disposition: HOME/ ROUTINE Disposition Time: 13:27 Condition: STABLE Instructions: Polysubstance Abuse Forms: [employer] ([place]) - Clinical Impression Clinical Impression: Polysubstance (excluding opioids) dependence, daily use - PA / [employer] / Resident Statement MD/DO has reviewed & agrees with the documentation as recorded. - Scribe Statement The provider has reviewed the documentation as recorded by the Asimibdebra Andersen All medical record entries made by the Asimibdebra were at my direction and personally dictated by me. I have reviewed the chart and agree that the record accurately reflects my personal performance of the history, physical exam, medical decision making, and the department course for this patient. I have also personally directed, reviewed, and agree with the discharge instructions and disposition.
[2017-07-24 13:38] LABS: ALB/GLOB RATIO 1.3 (1.0-2.1); ALBUMIN 4.2 g/dL (3.5-5.0); ALT/SGPT 35 U/L (9-52); AST/SGOT 32 U/L (14-36); BLOOD UREA NITROGEN 13 mg/dL (7-17); CALCIUM 8.7 mg/dl (8.6-10.4); GFR AFRICAN-AMERICAN > 60; GFR NON-AFRICAN AMERICAN > 60
[2017-07-24 13:48] LABS: SQUAMOUS EPITHIAL 11 /hpf (0-5); URINE BACTERIA RARE (<OCC); URINE BILIRUBIN NEGATIVE (NEGATIVE); URINE BLOOD NEGATIVE (NEGATIVE); URINE CLARITY Hazy (Clear); URINE COLOR Yellow (YELLOW); URINE GLUCOSE (UA) NORMAL (Normal); URINE LEUKOCYTE ESTERASE 2+ Leu/uL (Negative); URINE PROTEIN 1+ mg/dL (NEGATIVE); URINE UROBILINOGEN NORMAL mg/dL (0.2-1.0)
[2017-07-24 13:55] LABS: BARBITURATES, UR NEGATIVE (NEGATIVE); BENZODIAZEPINES, UR NEGATIVE (NEGATIVE); PHENCYCLIDINE, UR NEGATIVE (NEGATIVE)
[2017-07-24 14:11] LABS: OPIATES, UR POSITIVE (NEGATIVE)
== END 2017-07-24 13:50 | disposition home or self-care (01) ==
LOC: C.ER 12:48
DX: F19.20 Other psychoactive substance dependence, uncomplicated (principal)

== ENCOUNTER 2017-08-02 13:56 | Emergency (ER) | payer MEDICAID ==
[2017-08-02 14:13] VITALS: BP 114/80; PULSE 98; RESP 18; TEMP 97.7; O2SAT 99
--- NOTE | 2017-08-02 14:30 | C.PDOC ---
History Of Present Illness Pt is here requesting detox from Heroin/opiates. Time Seen by Provider: 08/02/17 14:19 Chief Complaint (Nursing): Substance Abuse History Per: Patient Onset/Duration Of Symptoms: Days Current Symptoms Are (Timing): Still Present Suicide/Self Injury Attempted (Context): None Modifying Factor(s): Narcotics Severity: Moderate Associated Symptoms: denies: Suicidal Thoughts, Suicidal Plan Additional History Per: Prior Records Past Medical History Reviewed: Historical Data, Nursing Documentation, Vital Signs Vital Signs: Last Vital Signs Temp 97.7 F 08/02/17 14:10 Pulse 98 H 08/02/17 14:10 Resp 18 08/02/17 14:10 BP 114/80 08/02/17 14:10 Pulse Ox 99 08/02/17 14:10 - Medical History PMH: Anxiety, Depression, Hepatitis (C), Seizures (" from alcohol withdrawal" as per Patient) - [facility] Procedures DETOXIFICATION SERVICES FOR SUBSTANCE ABUSE TREATMENT (06/23/17) DRAINAGE OF PERITONEAL CAVITY, PERCUTANEOUS APPROACH (06/23/17) DRUG REHABILITATION AND DETOXIFICATION (01/10/15) INDIVIDUAL PSYCHOTHERAPY, SUPPORTIVE (02/21/17) Family History: States: Unknown Family Hx - Social History Hx Tobacco Use: Yes Hx Alcohol Use: No (Socially) Hx Substance Use: Yes (IVDU Heroin and Cocaine) - Immunization History Hx Tetanus Toxoid Vaccination: No Hx Influenza Vaccination: No Hx Pneumococcal Vaccination: No Review Of Systems Except As Marked, All Systems Reviewed And Found Negative. Constitutional: Negative for: Fever Cardiovascular: Negative for: Chest Pain Respiratory: Negative for: Shortness of Breath Gastrointestinal: Negative for: Vomiting, Abdominal Pain Musculoskeletal: Negative for: Neck Pain Skin: Negative for: Rash Neurological: Negative for: Seizures Physical Exam - Physical Exam Appears: Non-toxic, No Acute Distress Skin: Normal Color, Warm, Dry Head: Atraumatic, Normacephalic Eye(s): bilateral: PERRL, EOMI Neck: Normal ROM, Supple Cardiovascular: Rhythm Regular Respiratory: Normal Breath Sounds, No Accessory Muscle Use Gastrointestinal/Abdominal: Soft, No Tenderness Extremity: Normal ROM, Other (Track ponce on arms) Neurological/Psych: Oriented x3, Normal Motor, Normal Sensation ED Course And Treatment O2 Sat by Pulse Oximetry: 99 Pulse Ox Interpretation: Normal Progress Note: There are no available detox beds today. Pt was placed on a waiting list by the criminal justice social worker. Disposition Counseled Patient/Family Regarding: Diagnosis, Need For Followup, Smoking Cessation - Disposition Disposition: HOME/ ROUTINE Disposition Time: 14:32 Condition: STABLE Additional Instructions: Follow up with your doctor and with a detox program as instructed. Return to the ER if you develop worsening of symptoms or if you have any other concerns. Instructions: Drug Abuse and Drug Addiction (DC) - Clinical Impression Clinical Impression: Opioid abuse
== END 2017-08-02 14:51 | disposition home or self-care (01) ==
LOC: C.ER 13:56
DX: F11.10 Opioid abuse, uncomplicated (principal)

== ENCOUNTER 2017-08-03 18:06 | Inpatient (IN) | payer MEDICAID ==
--- NOTE | 2017-08-03 20:40 | C.PDOC ---
History Of Present Illness 32 yo female, presents requesting detox for opiates last used a few hous ago. no medical complaints Time Seen by Provider: 08/03/17 20:31 Chief Complaint (Nursing): Substance Abuse Past Medical History Reviewed: Historical Data, Nursing Documentation, Vital Signs Vital Signs: Last Vital Signs Temp 97.7 F 08/04/17 00:21 Pulse 73 08/04/17 00:21 Resp 18 08/04/17 00:21 BP 127/82 08/04/17 00:21 Pulse Ox 96 08/04/17 00:40 - Medical History PMH: Anxiety, Depression, Hepatitis (C), Seizures (" from alcohol withdrawal" as per Patient) Denies: HIV, HTN, Chronic Kidney Disease, Sexually Transmitted Disease - [facility] Procedures DETOXIFICATION SERVICES FOR SUBSTANCE ABUSE TREATMENT (06/23/17) DRAINAGE OF PERITONEAL CAVITY, PERCUTANEOUS APPROACH (06/23/17) DRUG REHABILITATION AND DETOXIFICATION (01/10/15) INDIVIDUAL PSYCHOTHERAPY, SUPPORTIVE (02/21/17) Family History: States: Unknown Family Hx - Social History Hx Tobacco Use: Yes Hx Alcohol Use: No (Socially) Hx Substance Use: Yes (IVDU Heroin and Cocaine) - Immunization History Hx Tetanus Toxoid Vaccination: No Hx Influenza Vaccination: No Hx Pneumococcal Vaccination: No Review Of Systems Except As Marked, All Systems Reviewed And Found Negative. Physical Exam - Physical Exam Appears: Well, No Acute Distress, Other (playing cell phone game) Skin: Normal Color, Warm, Dry Eye(s): bilateral: Normal Inspection, PERRL, EOMI Nose: Normal Throat: Normal Neck: Normal Cardiovascular: Rhythm Regular Respiratory: Normal Breath Sounds Gastrointestinal/Abdominal: Normal Exam, Soft, No Tenderness, No Guarding, No Rebound Back: Normal Inspection Extremity: Normal ROM ED Course And Treatment - Laboratory Results Result Diagrams: 08/03/17 21:45 08/03/17 21:45 O2 Sat by Pulse Oximetry: 96 Medical Decision Making Medical Decision Making: pt medically clear Disposition - Disposition Disposition: HOSPITALIZED Disposition Time: 00:40 Condition: STABLE - Clinical Impression Clinical Impression: UTI (urinary tract infection), Opiate addiction Decision To Admit - Pt Status Changed To: Hospital Disposition Of: Inpatient - Admit Certification Admit to Inpatient:: After my assessment, the patient will require hospitalization for at least two midnights. This is because of the severity of symptoms shown, intensity of services needed, and/or the medical risk in this patient being treated as an outpatient. - InPatient: Physician Admission Certification: I certify that this patient requires 2 or more midnights of care for the following reason:: pt needs detox. - . Bed Request Type: Detox Admitting Physician: Beverly Simmons Patient Diagnosis: UTI (urinary tract infection), Opiate addiction
[2017-08-03 20:51] LABS: HCG,QUALITATIVE URINE NEGATIVE (NEGATIVE)
[2017-08-03 20:54] LABS: SQUAMOUS EPITHIAL 5 /hpf (0-5); URINE BACTERIA MANY (<OCC); URINE BILIRUBIN NEGATIVE (NEGATIVE); URINE BLOOD 3+ (NEGATIVE); URINE CLARITY Hazy (Clear); URINE COLOR Yellow (YELLOW); URINE GLUCOSE (UA) NORMAL (Normal); URINE LEUKOCYTE ESTERASE 3+ Leu/uL (Negative); URINE PROTEIN 1+ mg/dL (NEGATIVE); URINE UROBILINOGEN NORMAL mg/dL (0.2-1.0)
[2017-08-03 21:06] LABS: BARBITURATES, UR NEGATIVE (NEGATIVE); BENZODIAZEPINES, UR NEGATIVE (NEGATIVE); PHENCYCLIDINE, UR NEGATIVE (NEGATIVE)
[2017-08-03 21:10] LABS: OPIATES, UR POSITIVE (NEGATIVE)
[2017-08-03 21:52] LABS: BASO % 0.4 % (0.0-2.0); EOS # 0.2 K/uL (0.0-0.7); EOS % 2.5 % (0.0-4.0); HEMOGLOBIN 13.2 g/dL (11.0-16.0); LYMPH # 3.2 K/uL (1.0-4.3); LYMPH % 38.2 % (20.0-40.0); MEAN CELL VOLUME 91.1 fL (81.0-99.0); MEAN CORPUSCULAR HEMOGLOBIN 31.9 pg (27.0-31.0); MEAN PLATELET VOLUME 8.7 fL (7.2-11.7); MONO # 0.6 K/uL (0.0-0.8); MONO % 7.3 % (0.0-10.0); NEUT # 4.4 K/uL (1.8-7.0); NEUT % 51.6 % (50.0-75.0); NRBC % 0.1 % (0.0-2.0); RBC 4.15 Mil/uL (3.80-5.20); RED CELL DISTRIBUTION WIDTH 13.1 % (11.5-14.5); WHITE BLOOD COUNT 8.5 K/uL (4.8-10.8)
[2017-08-03 22:06] LABS: ALB/GLOB RATIO 1.2 (1.0-2.1); ALBUMIN 4.3 g/dL (3.5-5.0); ALT/SGPT 40 U/L (9-52); AST/SGOT 37 U/L (14-36); BLOOD UREA NITROGEN 17 mg/dL (7-17); CALCIUM 9.2 mg/dl (8.6-10.4); GFR AFRICAN-AMERICAN > 60; GFR NON-AFRICAN AMERICAN > 60
--- NOTE | 2017-08-03 23:40 | PCM.BM ---
<Jennifer Sanchez M - Last Filed: 08/03/17 23:39> Treatment Plan Problems - Problems identified on initial assessmt Ineffective Coping Skills Date Initiated: 08/03/17 Time Initiated: 23:39 Assessment reference: NA Status: Active Treatment assets and liabiliti Patient Assests: cooperative, ADL independent, negotiates basic needs, cognitively intact Patient Liabilities: financial problems, poor support system, substance abuse, other - Milieu Protocol Maintain good personal hygiene: daily Encourage regular showers, daily Remind patient to perform daily oral care, other Assist patient to perform ADL's (PRN) Maintain personal safety: every shift Educate patient to report safety concerns to staff, every shift Monitor environment for contraband/sharps Medication safety: Monitor for expected outcome, potential side effects: every shift, Assess barriers to learning: every shift, Assess readiness for medication education: every shift <Yury Mayers M - Last Filed: 08/09/17 01:00> - Diagnosis (1) Opioid use disorder, severe, dependence Status: Acute Interventions: 08/09/17 00:59 * Assess 7x/week regarding severity of withdrawal * Educate regarding risks, benefits, side effects and alternatives of medications * Use Motivational Interviewing for abstinence * Use CBT for relapse prevention * Medication management for withdrawal symptoms * Encourage medication assisted treatment (2) Sedative, hypnotic or anxiolytic use disorder, severe, dependence Status: Acute Interventions: 08/09/17 00:59 * Assess 7x/week regarding severity of withdrawal * Educate regarding risks, benefits, side effects and alternatives of medications * Use Motivational Interviewing for abstinence * Use CBT for relapse prevention * Medication management for withdrawal symptoms * Encourage medication assisted treatment (3) Cocaine use disorder, severe, dependence Status: Acute Interventions: 08/09/17 01:00 * Assess 7x/week regarding severity of withdrawal * Educate regarding risks, benefits, side effects and alternatives of medications * Use Motivational Interviewing for abstinence * Use CBT for relapse prevention * Medication management for withdrawal symptoms * Encourage medication assisted treatment
[2017-08-04] MEDS: Multiple Vitamins Tab PO SCH (10:51)
[2017-08-04] MEDS ORDERED: Buprenorphine Hydrochloride 2 mg SL ONE ×2 (13:40→14:50)
[2017-08-04] MEDS ORDERED: Buprenorphine Hydrochloride 2 mg SL SCH (14:40)
--- NOTE | 2017-08-04 22:38 | PCM.PSYCH ---
Initial Psychiatric Evaluation - Initial Psychiatric Evaluation Type of Admission: Voluntary Legal Status: Capacity Chief Complaint (in patient's own words): I need help for my substance use History of Present Illness and Precipitating Events: Patient is a 32 years old, single, unemployed, female with no psychiatric history was admitted due to withdrawing from substance use. Patient started using heroin at 16 years of age, increased gradually up to 10- 15 bags daily, was using every day except for last 2 weeks. IV. Patient also started using Dilaudid 2 years ago, was taking 40 mg per day. Last use was yesterday. Patient was buying Dilaudid from Street. History of 3-4 detox's and 2 rehabs. Klonopin, started using Klonopin 3 years ago, 5 tablets each of 1 mg daily. Last used yesterday, 5 pills. Cocaine: Patient started using cocaine 5 years ago, was using daily, worth $50 daily, smoking. Last use reported 6 days ago. Patient also smokes one pack of cigarettes daily and is requesting for nicotine patch. Patient has history of left knee surgery. Was arrested in 2013 for possession of drugs, not on probation. Patient was born in [place], has an associate degree. Not working. Last job was 3 years ago. She stopped working due to drugs. She lives with friend and is supported by friends. Never and has 11 years old son who lives with patient's father who has custody. Her height is 5 feet 5 inches and weight is 165 pounds. Current Medications: Active Medications Generic Name Dose Route Start Last Admin Trade Name Freq PRN Reason Stop Dose Admin Chlordiazepoxide 25 mg 08/04/17 10:47 08/04/17 17:31 Librium PO 08/07/17 23:59 25 mg Q6 GAMAL Administration Taper Ciprofloxacin 500 mg 08/04/17 11:00 08/04/17 17:31 Cipro PO 08/08/17 22:00 500 mg BID GAMAL Administration Protocol Clonidine HCl 0.1 mg 08/03/17 23:42 Catapres PO Q8 PRN COWS Score More or Equal to 5 Hydroxyzine HCl 25 mg 08/03/17 23:48 08/04/17 21:35 Atarax PO 25 mg Q6H PRN Administration Anxiety Ibuprofen 600 mg 08/03/17 23:46 Motrin Tab PO TID PRN Pain, moderate (4-7) Loperamide HCl 2 mg 08/03/17 23:42 Imodium PO Q8 PRN Diarrhea Multivitamins 1 tab 08/04/17 10:00 08/04/17 10:51 Hexavitamin PO 1 tab DAILY GAMAL Administration Nicotine 1 patch 08/04/17 11:45 08/04/17 12:04 Nicoderm Cq TD 1 patch DAILY GAMAL Administration Ondansetron HCl 4 mg 08/03/17 23:42 Zofran Tab PO Q8 PRN Nausea/Vomiting Trazodone HCl 50 mg 08/03/17 23:49 08/04/17 21:35 Desyrel PO 50 mg HS PRN Administration Insomnia Past Psychiatric History - Past Psychiatric History Previous Treatment History: None History of Abuse: None reported History of ETOH/Drug Use: See HPI History of Family Illness: None reported Pertinent Medical Hx (Current Medical&Sleep Prob, Allergies): Allergies Allergy/AdvReac Type Severity Reaction Status Date / Time shellfish derived Allergy Verified 08/03/17 18:18 SEAFOOD Allergy Uncoded 08/03/17 18:18 No Known Home Med 06/23/17 Hepatitis C Review of Systems - Psychiatric Psychiatric: Anxiety, Other Mental Status Examination - Personal Presentation Personal Presentation: Looks stated age - Affect Affect: Other (Appropriate) - Motor Activity Motor Activity: Calm - Reliability in Providing Information Reliability in Providing Information: Fair - Speech Speech: Organized - Mood Mood: Anxious - Formal Thought Process Formal Thought Process: No Impairment - Hallucinations/Delusions Hallucinations: Other (None reported) Delusions: Other - Obsessions/Compulsions Obsessions: None Compulsions: None - Cognitive Functions Orientation: Person, Place, Situation, Time Sensorium: Alert Attention/Concentration: Attentive Abstract Thinking: Chapman Estimate of Intelligence: Average Judgement: Intact, as evidence by: Insight regarding need for hospitalization Memory: Recent intact, as evidence by: Ability to recall events of the day, Remote intact, as evidenced by: Ability to recall historical events - Risk Risk: Withdrawal, Diminished functioning - Strength & Assets Inventory Strength & Assets Inventory: Cooperative - Limitations Limitations: Other DSM 5 DX - DSM 5 DSM 5 Diagnosis: Opiate use disorder severe Anxiolytics use disorder severe Cocaine use disorder severe - Recommended/Plan of Treatment Treatment Recommendations and Plan of Treatment: Patient education Supportive therapy CBT for relapse prevention [place] for abstinence We will start Subutex for opiate withdrawal symptoms and Librium for angiolytic withdrawal symptoms Other when necessary medications Ciprofloxacin for UTI wants to go to [facility] for follow-up care after discharge from the hospital. Projected ELOS: 45 days - Smoking Cessation Smoking Cessation Initiated: Yes
[2017-08-05] MEDS: Multiple Vitamins Tab PO SCH (09:48)
[2017-08-05] MEDS ORDERED: Buprenorphine Hydrochloride 2 mg SL ONE (10:00)
--- NOTE | 2017-08-05 14:57 | PCM.PYCHPN ---
Psychiatric Progress Note - Psychiatric Progress Note Patient seen today, length of contact: 15 minute Patient Chief Complaint: I'm feeling better. Problems Identified/Issues Discussed: Patient seen, chart reviewed, case discussed with the staff Issues related to illness and treatment were discussed with the patient. Reported compliant with treatment with no adverse affects. Reported feeling much better with treatment. Mood reported as good. Affect appropriate. Denied any delusions, auditory or visual hallucinations, suicidal ideations or homicidal ideation at the time of evaluation. At the time of evaluation, patient was awake, alert and oriented 3. Memory was also intact. Aftercare discussed with the patient. Patient wants to go to [facility]. Medical Problems: Hepatitis C Diagnostic Results: Reviewed DSM 5 Symptoms Update: Improving with treatment Medication Change: No Medical Record Reviewed: Yes Mental Status Examination - Cognitive Function Orientation: Person, Place, Situation, Time Memory: Intact Attention: WNL Concentration: WNL Association: [facility] Fund of Knowledge: [facility] Decription of patient's judgement and insights: Fair - Mood Mood: Anxious (Much less than before) - Affect Affect: Other (Appropriate) - Formal Thought Process Formal Thought Process: No Impairment Psychotic Thoughts and Behaviors: None - Suicidal Ideation Suicidal Ideation: No - Homicidal Ideation Homicidal Ideation: No Goal/Treatment Plan - Goal/Treatment Plan Need for Continued Stay: Remain at risks for inpatient hospitalization, Discharge may exacerbated symptoms, Severe functional impairment Progress Toward Problem(s) and Goals/Treatment Plan: Patient education Supportive therapy CBT for relapse prevention [place] for abstinence Continue treatment as before wants to go to [facility] for follow-up care after discharge from the hospital. Estimated Date of D/C: 08/07/17 - Smoking Cessation Smoking Cessation Initiated: Yes
[2017-08-06] MEDS: Multiple Vitamins Tab PO SCH (09:43)
[2017-08-06] MEDS ORDERED: Buprenorphine Hydrochloride 2 mg SL SCH (10:15)
[2017-08-06] MEDS: Buprenorphine Hydrochloride 2 mg SL SCH (12:43)
--- NOTE | 2017-08-06 21:10 | PCM.PYCHPN ---
Psychiatric Progress Note - Psychiatric Progress Note Patient seen today, length of contact: 15 minute Patient Chief Complaint: I'm feeling better. Problems Identified/Issues Discussed: Patient seen, chart reviewed, case discussed with the staff Issues related to illness and treatment were discussed with the patient. Reported compliant with treatment with no adverse affects. Reported feeling much better with treatment. Mood reported as good. Affect appropriate. Denied any delusions, auditory or visual hallucinations, suicidal ideations or homicidal ideation at the time of evaluation. At the time of evaluation, patient was awake, alert and oriented 3. Memory was also intact. Aftercare discussed with the patient. Patient wants to go to [facility]. Medical Problems: Hepatitis C Diagnostic Results: Reviewed DSM 5 Symptoms Update: Improving with treatment Medication Change: No Medical Record Reviewed: Yes Mental Status Examination - Cognitive Function Orientation: Person, Place, Situation, Time Memory: Intact Attention: WNL Concentration: WNL Association: [facility] Fund of Knowledge: [facility] Decription of patient's judgement and insights: Fair - Mood Mood: Anxious (Much less than before) - Affect Affect: Other (Appropriate) - Speech Speech: Appropriate - Formal Thought Process Formal Thought Process: No Impairment Psychotic Thoughts and Behaviors: None - Suicidal Ideation Suicidal Ideation: No - Homicidal Ideation Homicidal Ideation: No Goal/Treatment Plan - Goal/Treatment Plan Need for Continued Stay: Remain at risks for inpatient hospitalization, Discharge may exacerbated symptoms, Severe functional impairment Progress Toward Problem(s) and Goals/Treatment Plan: Patient education Supportive therapy CBT for relapse prevention [place] for abstinence Continue treatment as before wants to go to [facility] for follow-up care after discharge from the hospital. Estimated Date of D/C: 08/07/17 - Smoking Cessation Smoking Cessation Initiated: Yes
[2017-08-07] MEDS: Buprenorphine Hydrochloride 2 mg SL SCH (09:22)
[2017-08-07] MEDS: Multiple Vitamins Tab PO SCH (09:25)
--- NOTE | 2017-08-07 11:26 | PCM.PYCHPN ---
Psychiatric Progress Note - Psychiatric Progress Note Patient seen today, length of contact: 15 minute Patient Chief Complaint: I'm feeling much better. Problems Identified/Issues Discussed: Patient seen, chart reviewed, case discussed with the staff Issues related to illness and treatment were discussed with the patient. Reported compliant with treatment with no adverse affects. Reported feeling much better with treatment. Mood reported as good. Affect appropriate. Denied any delusions, auditory or visual hallucinations, suicidal ideations or homicidal ideation at the time of evaluation. At the time of evaluation, patient was awake, alert and oriented 3. Memory was also intact. Aftercare discussed with the patient. Patient wants to go to [facility]. Medical Problems: Hepatitis C Diagnostic Results: Reviewed DSM 5 Symptoms Update: Improving with treatment Medication Change: No Medical Record Reviewed: Yes Mental Status Examination - Cognitive Function Orientation: Person, Place, Situation, Time Memory: Intact Attention: WNL Concentration: WNL Association: [facility] Fund of Knowledge: [facility] Decription of patient's judgement and insights: Fair - Mood Mood: Neutral - Affect Affect: Other (Appropriate) - Speech Speech: Appropriate - Formal Thought Process Formal Thought Process: No Impairment Psychotic Thoughts and Behaviors: None - Suicidal Ideation Suicidal Ideation: No - Homicidal Ideation Homicidal Ideation: No Goal/Treatment Plan - Goal/Treatment Plan Need for Continued Stay: Remain at risks for inpatient hospitalization, Discharge may exacerbated symptoms, Severe functional impairment Progress Toward Problem(s) and Goals/Treatment Plan: Patient education Supportive therapy CBT for relapse prevention [place] for abstinence Continue treatment as before Patient will go to [facility] for follow-up care after discharge from the hospital. Estimated Date of D/C: 08/09/17 - Smoking Cessation Smoking Cessation Initiated: Yes
[2017-08-07] MEDS: Benzocaine 7.5% 5.1 GM TUBE MM PRN ×2 (18:12→21:15)
--- NOTE | 2017-08-08 07:27 | PCM.PYCHPN ---
Psychiatric Progress Note - Psychiatric Progress Note Patient seen today, length of contact: 15 minute Patient Chief Complaint: I am feeling little better.' Problems Identified/Issues Discussed: Patient seen and evaluated, chart reviewed and discussed with the nurse. She reports irritable mood but denies any feelings of hopelessness and helplessness. She denies any SI/HI/AVH. Patient still reports withdrawal symptoms including nausea, and sweating. She is taking medication and denies any side effects. She needs more time for stabilization. Supportive therapy and psychoeducation were given. Medication Change: No Medical Record Reviewed: Yes Mental Status Examination - Cognitive Function Orientation: Person, Place, Situation, Time Memory: Intact Attention: WNL Concentration: WNL Association: WNL Fund of Knowledge: WNL - Mood Mood: Neutral - Affect Affect: Other (Appropriate) - Speech Speech: Appropriate - Formal Thought Process Formal Thought Process: No Impairment - Suicidal Ideation Suicidal Ideation: No - Homicidal Ideation Homicidal Ideation: No Goal/Treatment Plan - Goal/Treatment Plan Need for Continued Stay: Remain at risks for inpatient hospitalization, Discharge may exacerbated symptoms, Severe functional impairment Progress Toward Problem(s) and Goals/Treatment Plan: Opiate use disorder severe Anxiolytics use disorder severe Cocaine use disorder severe Patient education Supportive therapy CBT for relapse prevention [place] for abstinence d/c Subutex for opiate withdrawal symptoms Librium for angiolytic withdrawal symptoms Other when necessary medications Ciprofloxacin for UTI wants to go to [facility] for follow-up care after discharge from the hospital. Estimated Date of D/C: 08/09/17
[2017-08-08] MEDS: Buprenorphine Hydrochloride 2 mg SL SCH (09:44)
[2017-08-08] MEDS: Multiple Vitamins Tab PO SCH (09:45)
[2017-08-08] MEDS: Benzocaine 7.5% 5.1 GM TUBE MM PRN ×2 (13:05→17:37)
[2017-08-09 05:41] VITALS: PULSE 79; RESP 18
[2017-08-09] MEDS: Multiple Vitamins Tab PO SCH (09:32)
[2017-08-09 09:38] VITALS: BP 115/80; TEMP 98; O2SAT 99
== END 2017-08-09 09:35 | disposition home or self-care (01) | DRG 744 ==
LOC: C.ER 18:06 → C.7D 22:39
PROVIDERS: ADMIT Psychiatry & Neurology Psychiatry; ATTEND Psychiatry & Neurology Psychiatry
PROC: HZ2ZZZZ Detoxification Services for Substance Abuse Treatment (ICD-10-PCS; principal; 2017-08-03)
PROC: HZ59ZZZ Individual Psychotherapy for Substance Abuse Treatment, Supportive (ICD-10-PCS; 2017-08-03)
PROC: HZ90ZZZ Pharmacotherapy for Substance Abuse Treatment, Nicotine Replacement (ICD-10-PCS; 2017-08-03)
DX: F11.23 Opioid dependence with withdrawal (principal); F13.20 Sedative, hypnotic or anxiolytic dependence, uncomplicated; F14.20 Cocaine dependence, uncomplicated; F17.210 Nicotine dependence, cigarettes, uncomplicated; N39.0 Urinary tract infection, site not specified; B18.2 Chronic viral hepatitis C